=== PATIENT | male | born 1935 | race Caucasian/White ===

== ENCOUNTER 2017-05-19 19:33 | Inpatient (IN) | payer MEDICARE ==
[~2017-05-19] VITALS: Ht 177.8 cm; Wt 68.7 kg
--- NOTE | 2017-05-19 19:59 | PHYS DOC ---
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 Review of Systems Review of Systems Constitutional: Denies fever or chills Eyes: Denies change in visual acuity (blindness right eye), redness, or eye pain HENT: Denies nasal congestion or sore throat Respiratory: Denies cough or shortness of breath Cardiovascular: No chest pain, no palpitations GI: Denies abdominal pain, nausea, vomiting, bloody stools or diarrhea : Denies dysuria or hematuria Musculoskeletal: Denies back pain or joint pain Integument: Denies rash or skin lesions Neurologic: Denies headache, focal weakness or sensory changes Current Medications Current Medications Reviewed Physical Exam Physical Exam Constitutional: Well developed, well nourished, no acute distress, non-toxic appearance. Very pleasant and cooperative HENT: Normocephalic, atraumatic, bilateral external ears normal, oropharynx moist, no oral exudates, nose normal. Eyes: Right eye with scarring and blindness; conjunctiva normal, no discharge of left eye. Neck: Normal range of motion, no tenderness, supple, no stridor. Cardiovascular:Heart rate regular rhythm, no murmur Lungs & Thorax: Bilateral breath sounds clear to auscultation Abdomen: Bowel sounds normal, soft, no tenderness, no masses, no pulsatile masses. Skin: Warm, dry, no erythema, no rash. Back: No tenderness, no CVA tenderness. Extremities: No tenderness, no cyanosis, no clubbing, ROM intact, no edema. Neurologic: Alert and oriented X 2 (confused to time), normal motor function, normal sensory function, no focal deficits noted. Psychologic: Affect normal, judgement normal, mood normal. Current Patient Data Vital Signs Reviewed Lab Results reviewed EKG EKG EKG by my interpretation shows sinus rhythm prolonged NM axis rate is [address] changes interventricular conduction delay. No prior EKG to compare this to Radiology/Procedures Radiology/Procedures Chest x-ray by my interpretation shows enlarged cardiac silhouette. Chronic COPD changes with flattened diaphragms. Chronic scarring in both lung bases. No prior chest x-ray to compare this to Course & Med Decision Making Course & Med Decision Making Pertinent Labs and Imaging studies reviewed. (See chart for details) Dragon Disclaimer Dragon Disclaimer This chart was dictated in whole or in part using Voice Recognition software in a busy, high-work load, and often noisy Emergency Department environment. It may contain unintended and wholly unrecognized errors or omissions. Departure Departure: Impression: Primary Impression: Behavioral change Disposition: 65 XFER TO PSYCH HOSP/UNIT Condition: GOOD OBIE ALEXANDER MD May 19, 2017 19:59
[2017-05-19] MEDS ORDERED: FURO40TA4 PO (20:28)
[2017-05-19] MEDS ORDERED: CARV12.52 PO (20:28)
[2017-05-19] MEDS ORDERED: POLY255P PO (20:28)
[2017-05-19] MEDS ORDERED: DIVA125C3 PO (20:28)
[2017-05-19] MEDS ORDERED: POTA20TA4 PO (20:28)
[2017-05-19] MEDS ORDERED: AMIO200T2 PO (20:28)
[2017-05-19] MEDS ORDERED: CHOL10003 PO (20:28)
[2017-05-19] MEDS ORDERED: ATOR10TA60 PO (20:28)
[2017-05-19] MEDS ORDERED: LORA0.5T PO (20:28)
[2017-05-19] MEDS ORDERED: ACET325T9 PO (20:28)
[2017-05-19] MEDS ORDERED: MELA3TAB2 PO (20:28)
[2017-05-19] MEDS ORDERED: TAMS0.4C2 PO (20:28)
[2017-05-19] MEDS ORDERED: SENN8.6T99 PO (20:28)
[2017-05-19] MEDS ORDERED: ASPI-630 PO (20:28)
[2017-05-19] MEDS ORDERED: LISI40TA PO (20:28)
[2017-05-19 20:29] LABS: BASO % 1 % (0-3); EOS # 0.2 x10^3/uL (0.0-0.7); EOS % 3 % (0-3); HEMATOCRIT 34.1 % (39.0-53.0); HEMOGLOBIN 11.6 g/dL (13.0-17.5); LYMPH # 1.9 x10^3/uL (1.0-4.8); LYMPH % 30 % (24-48); MEAN CORPUSCULAR HEMOGLOBIN 36 pg (25-35); MEAN CORPUSCULAR HGB CONC 34 g/dL (31-37); MEAN CORPUSCULAR VOLUME 107 fL (79-100); MONO # 0.5 x10^3/uL (0.0-1.1); MONO % 9 % (0-9); NEUT # 3.6 x10^3uL (1.8-7.7); NEUT % 58 % (31-73); PLATELET COUNT 139 x10^3/uL (140-400); RED BLOOD COUNT 3.18 x10^6/uL (4.30-5.70); RED CELL DISTRIBUTION WIDTH 14.6 % (11.5-14.5); WHITE BLOOD COUNT 6.2 x10^3/uL (4.0-11.0)
[2017-05-19 20:38] LABS: ALBUMIN 3.1 g/dL (3.4-5.0); ALBUMIN/GLOBULIN RATIO 0.7 (1.0-1.7); CALCIUM 8.4 mg/dL (8.5-10.1); CREATININE 1.4 mg/dL (0.7-1.3); GFR 48.4; MAGNESIUM 2.2 mg/dL (1.8-2.4); TOTAL BILIRUBIN 0.5 mg/dL (0.2-1.0); TOTAL PROTEIN 7.3 g/dL (6.4-8.2)
[2017-05-19 20:48] LABS: BILIRUBIN,URINE NEG (NEG); CLARITY,URINE CLEAR; COLOR,URINE YELLOW; GLUCOSE,URINE NEG (NEG)
[2017-05-19 20:49] LABS: BACTERIA,URINE 0 /HPF (0-FEW); NITRITE,URINE NEG (NEG); SQUAMOUS EPITHELIAL CELL,UR FEW /LPF; UROBILINOGEN,URINE 2 mg/dL (0.2 mg/dL)
[2017-05-19 20:50] LABS: HYALINE CASTS, URINE FEW /HPF
[2017-05-19] MEDS ORDERED: MAGNESIUM HYDROXIDE 2,400 MG/30 ML ORAL.SUSP. PO PRN (21:45)
[2017-05-19] MEDS ORDERED: METHYL SALICYLATE/MENTHOL TOPICAL OINTMENT 29GM TUBE. TP PRN (21:45)
[2017-05-19] MEDS ORDERED: MAG HYDROX/AL HYDROX/SIMETH 30 ML ORAL.SUSP PO PRN (21:45)
[2017-05-19] MEDS ORDERED: ACETAMINOPHEN 325 MG TABLET PO PRN (22:00)
[2017-05-19 22:12] LABS: VAL ACID 26 mcg/mL (50-100)
[2017-05-19] MEDS ORDERED: POLYETHYLENE GLYCOL 3350 17 GM PACKET. PO PRN (22:15)
[2017-05-19 22:43] VITALS: BP 129/73
[2017-05-19] MEDS: DIVALPROEX 125 MG CAP.SPRINK PO SCH (23:29)
[2017-05-19] MEDS: MELATONIN 3 MG TABLET PO SCH (23:29)
[2017-05-19] MEDS: ATORVASTATIN CALCIUM 10 MG TABLET. PO SCH (23:29)
--- NOTE | 2017-05-20 01:53 | EKG ---
[address] [address] Test Date: 2017-05-19 Test Time: 20:18:49 Pat Name: LATOSHA VIEYRA Department: Room: [address] [place] [address] Gender: M Knowledge Management Advisor: : [id number] Requested By: OBIE ALEXANDER Order Number: [id number] Reading MD: Bassam Bautista Measurements Intervals [place] Rate: 60 P: [place]: QRS: 179 QRSD: 86 T: 7 QT: 524 QTc: 529 Interpretive Statements VENTRICULAR PACED RHYTHM Electronically Signed On 05-29-2017 14:45:36 CDT by Bassam Bautista
[2017-05-20 06:33] VITALS: BP 130/130
[2017-05-20] MEDS: AMIODARONE HCL 200 MG TABLET PO SCH (08:45)
[2017-05-20] MEDS: CARVEDILOL 12.5 MG TABLET PO SCH ×2 (08:45→17:00)
[2017-05-20] MEDS: ASPIRIN 81 MG TAB.CHEW PO SCH (08:45)
[2017-05-20] MEDS: CHOLECALCIFEROL (VITAMIN D3) 1,000 UNIT TABLET PO SCH (08:45)
[2017-05-20] MEDS: LISINOPRIL 20 MG TABLET PO SCH (08:46)
[2017-05-20] MEDS: FUROSEMIDE 40 MG TABLET PO SCH (08:46)
[2017-05-20] MEDS: DIVALPROEX 125 MG CAP.SPRINK PO SCH ×2 (08:46→19:56)
--- NOTE | 2017-05-20 08:47 | RAD ---
INDICATION: medical clearance COMPARISON: None. FINDINGS: Single view of chest obtained. Enlarged cardiac silhouette with poststernotomy changes and pacemaker. Coarsened lung markings throughout bilateral lungs. Mild linear opacities at left lung base. IMPRESSION: Coarsened lung markings bilaterally. Would correlate for possible causes such as emphysema. Other causes such as mild pulmonary vascular congestion are also possible. Mild opacity at left lung base could be secondary to overlap of structures but a small region of atelectasis also possible.
[2017-05-20] MEDS: TAMSULOSIN 0.4 MG CAP.ER.24H. PO SCH (08:48)
[2017-05-20] MEDS: POTASSIUM CHLORIDE 20 MEQ TABLET.ER. PO SCH (08:48)
[2017-05-20] MEDS: SENNOSIDES 8.6 MG TABLET PO SCH (08:48)
[2017-05-20 15:56] VITALS: BP 108/63
[2017-05-20 19:08] LABS: T3 TOTAL 52 ng/dL (71-180); THYROXINE 8.1 ug/dL (4.5-12.0)
[2017-05-20] MEDS: MELATONIN 3 MG TABLET PO SCH (19:56)
[2017-05-20] MEDS: ATORVASTATIN CALCIUM 10 MG TABLET. PO SCH (19:57)
[2017-05-20 21:15] LABS: THYROID STIM HORMONE (TSH) 1.97 uIU/mL (0.358-3.740)
--- NOTE | 2017-05-20 22:03 | PDOC ---
Exam Willard Demential Exam: Willard Note: Please also refer to the separate dictated note~for this date of service dictated separately.~Patient seen individually. Discussed the patient with Nursing staff reviewed the chart.~Reviewed interim history and current functioning. Reviewed vital signs,~Labs/ Radiology~and current medications noted below. Continue current treatment with the changes noted in the dictated addendum note Assessment: Vital Signs: Vital Signs Date Time Temp Pulse Resp B/P (MAP) Pulse Ox O2 Delivery O2 Flow Rate FiO2 05/20/17 17:00 69 108/63 05/20/17 15:56 97.5 21 97 05/19/17 20:05 Room Air I&O Intake and Output 05/20/17 07:00 Intake Total 200 ml Balance 200 ml Intake Oral 200 ml Current Medications: Meds: Current Medications Multi-Ingredient Ointment (Analgesic [place]) 1 damaso PRN QID PRN TP MUSCLE PAIN; Start 05/19/17 at 21:45 Al Hydroxide/Mg Hydroxide (Mylanta Plus Xs) 15 ml PRN AFTMEALHC PRN PO DYSPEPSIA; Start 05/19/17 at 21:45 Magnesium Hydroxide (Milk Of Magnesia) 2,400 mg PRN QHS PRN PO CONSTIPATION; Start 05/19/17 at 21:45 Divalproex Sodium (Depakote Sprinkles) 250 mg BID PO Last administered on 08:46; Start 05/19/17 at 22:15; Stop 05/20/17 at 18:55; Status DC Lorazepam (Ativan) 0.25 mg PRN Q6HRS PRN PO ANXIETY / AGITATION; Start at 22:00 Melatonin 3 mg QHS PO Last administered on 05/20/17 19:56; Start 05/19/17 at 22:15 Acetaminophen (Tylenol) 650 mg PRN Q6HRS PRN PO PAIN / TEMP; Start 05/19/17 at 22:00 Amiodarone HCl (Cordarone) 200 mg DAILY PO Last administered on 05/20/17 08:45 ; Start 05/20/17 at 09:00 Aspirin (Children'S Aspirin) 81 mg DAILY PO Last administered on 05/20/17 08: 45; Start 05/20/17 at 09:00 Atorvastatin Calcium (Lipitor) 10 mg QHS PO Last administered on 05/20/17 19: 57; Start 05/19/17 at 22:15 Carvedilol (Coreg) 12.5 mg BIDWMEALS PO Last administered on 05/20/17 17:00; Start 05/20/17 at 08:00 Vitamin D (Vitamin D3) 1,000 unit DAILY PO Last administered on 05/20/17 08:45 ; Start 05/20/17 at 09:00 Furosemide (Lasix) 40 mg DAILY PO Last administered on 05/20/17 08:46; Start 05/20/17 at 09:00 Polyethylene Glycol (miraLAX) 17 gm PRN DAILY PRN PO CONSTIPATION; Start at 22:15 Potassium Chloride (Klor-Con) 40 meq DAILY PO Last administered on 05/20/17 08 :48; Start 05/20/17 at 09:00 Sennosides (Senna) 8.6 mg DAILY PO Last administered on 05/20/17 08:48; Start 05/20/17 at 09:00 Tamsulosin HCl (Flomax) 0.4 mg DAILY PO Last administered on 05/20/17 08:48; Start 05/20/17 at 09:00 Lisinopril (Prinivil) 40 mg DAILY PO Last administered on 05/20/17 08:46; Start 05/20/17 at 09:00 Divalproex Sodium (Depakote Sprinkles) 375 mg BID PO Last administered on 19:56; Start 05/20/17 at 21:00 Sertraline HCl (Zoloft) 25 mg DAILY PO ; Start 05/21/17 at 09:00 Active Scripts Active Reported Polyethylene Glycol 3350 255 Gm Powder 17 Gm PO PRN DAILY PRN Tylenol (Acetaminophen) 325 Mg Tablet 650 Mg PO PRN Q6HRS PRN Lorazepam 0.5 Mg Tablet 0.25 Mg PO PRN Q6HRS PRN Furosemide 40 Mg Tablet 40 Mg PO DAILY Klor-Con M20 (Potassium Chloride) 20 Meq Tab.er.prt 40 Meq PO DAILY Lisinopril 40 Mg Tablet 40 Mg PO DAILY Vitamin D3 (Cholecalciferol (Vitamin D3)) 1,000 Unit Tablet 1,000 Unit PO DAILY Aspirin 81 Mg Tab.chew 81 Mg PO DAILY Amiodarone Hcl 200 Mg Tablet 200 Mg PO DAILY Atorvastatin Calcium 10 Mg Tablet 10 Mg PO QHS Tamsulosin Hcl 0.4 Mg Cap.er.24h 0.4 Mg PO DAILY Melatonin 3 Mg Tablet 3 Mg PO HS Senokot (Sennosides) 8.6 Mg Tablet 8.6 Mg PO DAILY Carvedilol 12.5 Mg Tablet 12.5 Mg PO BIDWMEALS Divalproex Sodium 125 Mg Cap.sprink 250 Mg PO BID Diagnosis: Problems: (1) Behavioral change JING ROSS MD May 20, 2017 22:03
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
[2017-05-21 04:09] LABS: HEMOGLOBIN A1C 4.3 % (4.8-5.6)
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
[2017-05-21 06:00] VITALS: BP 134/77
[2017-05-21] MEDS: CARVEDILOL 12.5 MG TABLET PO SCH ×2 (08:13→17:00)
[2017-05-21] MEDS: CHOLECALCIFEROL (VITAMIN D3) 1,000 UNIT TABLET PO SCH (08:13)
[2017-05-21] MEDS: FUROSEMIDE 40 MG TABLET PO SCH (08:13)
[2017-05-21] MEDS: TAMSULOSIN 0.4 MG CAP.ER.24H. PO SCH (08:13)
[2017-05-21] MEDS: LISINOPRIL 20 MG TABLET PO SCH (08:14)
[2017-05-21] MEDS: SENNOSIDES 8.6 MG TABLET PO SCH (08:14)
[2017-05-21] MEDS: DIVALPROEX 125 MG CAP.SPRINK PO SCH ×2 (08:14→19:49)
[2017-05-21] MEDS: POTASSIUM CHLORIDE 20 MEQ TABLET.ER. PO SCH (08:14)
[2017-05-21] MEDS: ASPIRIN 81 MG TAB.CHEW PO SCH (08:15)
[2017-05-21] MEDS: AMIODARONE HCL 200 MG TABLET PO SCH (08:15)
[2017-05-21] MEDS: SERTRALINE 25 MG TABLET. PO SCH (08:27)
--- NOTE | 2017-05-21 11:52 | PDOC ---
Exam Willard Demential Exam: Willard Note: Please also refer to the separate dictated note~for this date of service dictated separately.~Patient seen individually. Discussed the patient with Nursing staff reviewed the chart.~Reviewed interim history and current functioning. Reviewed vital signs,~Labs/ Radiology~and current medications noted below. Continue current treatment with the changes noted in the dictated addendum note Assessment: Vital Signs: Vital Signs Date Time Temp Pulse Resp B/P (MAP) Pulse Ox O2 Delivery O2 Flow Rate FiO2 05/21/17 08:15 59 134/77 05/21/17 06:00 97.8 20 94 05/19/17 20:05 Room Air I&O Intake and Output 05/21/17 07:00 Intake Total 1020 ml Balance 1020 ml Intake Oral 1020 ml Current Medications: Meds: Current Medications Multi-Ingredient Ointment (Analgesic [place]) 1 damaso PRN QID PRN TP MUSCLE PAIN; Start 05/19/17 at 21:45 Al Hydroxide/Mg Hydroxide (Mylanta Plus Xs) 15 ml PRN AFTMEALHC PRN PO DYSPEPSIA; Start 05/19/17 at 21:45 Magnesium Hydroxide (Milk Of Magnesia) 2,400 mg PRN QHS PRN PO CONSTIPATION; Start 05/19/17 at 21:45 Divalproex Sodium (Depakote Sprinkles) 250 mg BID PO Last administered on 08:46; Start 05/19/17 at 22:15; Stop 05/20/17 at 18:55; Status DC Lorazepam (Ativan) 0.25 mg PRN Q6HRS PRN PO ANXIETY / AGITATION; Start at 22:00 Melatonin 3 mg QHS PO Last administered on 05/20/17 19:56; Start 05/19/17 at 22:15 Acetaminophen (Tylenol) 650 mg PRN Q6HRS PRN PO PAIN / TEMP; Start 05/19/17 at 22:00 Amiodarone HCl (Cordarone) 200 mg DAILY PO Last administered on 05/21/17 08:15 ; Start 05/20/17 at 09:00 Aspirin (Children'S Aspirin) 81 mg DAILY PO Last administered on 05/21/17 08: 15; Start 05/20/17 at 09:00 Atorvastatin Calcium (Lipitor) 10 mg QHS PO Last administered on 05/20/17 19: 57; Start 05/19/17 at 22:15 Carvedilol (Coreg) 12.5 mg BIDWMEALS PO Last administered on 05/21/17 08:13; Start 05/20/17 at 08:00 Vitamin D (Vitamin D3) 1,000 unit DAILY PO Last administered on 05/21/17 08:13 ; Start 05/20/17 at 09:00 Furosemide (Lasix) 40 mg DAILY PO Last administered on 05/21/17 08:13; Start 05/20/17 at 09:00 Polyethylene Glycol (miraLAX) 17 gm PRN DAILY PRN PO CONSTIPATION; Start at 22:15 Potassium Chloride (Klor-Con) 40 meq DAILY PO Last administered on 05/21/17 08 :14; Start 05/20/17 at 09:00 Sennosides (Senna) 8.6 mg DAILY PO Last administered on 05/21/17 08:14; Start 05/20/17 at 09:00 Tamsulosin HCl (Flomax) 0.4 mg DAILY PO Last administered on 05/21/17 08:13; Start 05/20/17 at 09:00 Lisinopril (Prinivil) 40 mg DAILY PO Last administered on 05/21/17 08:14; Start 05/20/17 at 09:00 Divalproex Sodium (Depakote Sprinkles) 375 mg BID PO Last administered on 08:14; Start 05/20/17 at 21:00 Sertraline HCl (Zoloft) 25 mg DAILY PO Last administered on 05/21/17 08:27; Start 05/21/17 at 09:00 Active Scripts Active Reported Polyethylene Glycol 3350 255 Gm Powder 17 Gm PO PRN DAILY PRN Tylenol (Acetaminophen) 325 Mg Tablet 650 Mg PO PRN Q6HRS PRN Lorazepam 0.5 Mg Tablet 0.25 Mg PO PRN Q6HRS PRN Furosemide 40 Mg Tablet 40 Mg PO DAILY Klor-Con M20 (Potassium Chloride) 20 Meq Tab.er.prt 40 Meq PO DAILY Lisinopril 40 Mg Tablet 40 Mg PO DAILY Vitamin D3 (Cholecalciferol (Vitamin D3)) 1,000 Unit Tablet 1,000 Unit PO DAILY Aspirin 81 Mg Tab.chew 81 Mg PO DAILY Amiodarone Hcl 200 Mg Tablet 200 Mg PO DAILY Atorvastatin Calcium 10 Mg Tablet 10 Mg PO QHS Tamsulosin Hcl 0.4 Mg Cap.er.24h 0.4 Mg PO DAILY Melatonin 3 Mg Tablet 3 Mg PO HS Senokot (Sennosides) 8.6 Mg Tablet 8.6 Mg PO DAILY Carvedilol 12.5 Mg Tablet 12.5 Mg PO BIDWMEALS Divalproex Sodium 125 Mg Cap.sprink 250 Mg PO BID Diagnosis: Problems: (1) Behavioral change JING ROSS MD May 21, 2017 11:52
[2017-05-21 15:36] VITALS: BP_SYST 130; BP_SYST 96; BP_DIAS 57; BP_DIAS 90
[2017-05-21] MEDS: ATORVASTATIN CALCIUM 10 MG TABLET. PO SCH (19:49)
[2017-05-21] MEDS: MELATONIN 3 MG TABLET PO SCH (19:50)
[2017-05-22] MEDS: LORazepam 0.5 MG TABLET PO PRN (01:02)
[2017-05-22 06:07] VITALS: BP 116/53
[2017-05-22] MEDS: CHOLECALCIFEROL (VITAMIN D3) 1,000 UNIT TABLET PO SCH (08:04)
[2017-05-22] MEDS: LISINOPRIL 20 MG TABLET PO SCH (08:05)
[2017-05-22] MEDS: POTASSIUM CHLORIDE 20 MEQ TABLET.ER. PO SCH (08:05)
[2017-05-22] MEDS: CARVEDILOL 12.5 MG TABLET PO SCH ×2 (08:05→17:06)
[2017-05-22] MEDS: SERTRALINE 25 MG TABLET. PO SCH (08:05)
[2017-05-22] MEDS: TAMSULOSIN 0.4 MG CAP.ER.24H. PO SCH (08:05)
[2017-05-22] MEDS: DIVALPROEX 125 MG CAP.SPRINK PO SCH ×2 (08:06→21:12)
[2017-05-22] MEDS: FUROSEMIDE 40 MG TABLET PO SCH (08:06)
[2017-05-22] MEDS: AMIODARONE HCL 200 MG TABLET PO SCH (08:06)
[2017-05-22] MEDS: SENNOSIDES 8.6 MG TABLET PO SCH (08:06)
[2017-05-22] MEDS: ASPIRIN 81 MG TAB.CHEW PO SCH (08:06)
[2017-05-22 16:21] VITALS: BP 126/67
--- NOTE | 2017-05-22 20:01 | PDOC ---
Exam Willard Demential Exam: Willard Note: Please also refer to the separate dictated note~for this date of service dictated separately.~Patient seen individually. Discussed the patient with Nursing staff reviewed the chart.~Reviewed interim history and current functioning. Reviewed vital signs,~Labs/ Radiology~and current medications noted below. Continue current treatment with the changes noted in the dictated addendum note Assessment: Vital Signs: Vital Signs Date Time Temp Pulse Resp B/P (MAP) Pulse Ox O2 Delivery O2 Flow Rate FiO2 05/22/17 17:06 60 126/67 05/22/17 16:21 97.6 16 97 Room Air I&O Intake and Output 05/22/17 07:00 Intake Total 720 ml Balance 720 ml Intake Oral 720 ml # Bowel Movements 1 Current Medications: Meds: Current Medications Multi-Ingredient Ointment (Analgesic [place]) 1 damaso PRN QID PRN TP MUSCLE PAIN; Start 05/19/17 at 21:45 Al Hydroxide/Mg Hydroxide (Mylanta Plus Xs) 15 ml PRN AFTMEALHC PRN PO DYSPEPSIA; Start 05/19/17 at 21:45 Magnesium Hydroxide (Milk Of Magnesia) 2,400 mg PRN QHS PRN PO CONSTIPATION; Start 05/19/17 at 21:45 Divalproex Sodium (Depakote Sprinkles) 250 mg BID PO Last administered on 08:46; Start 05/19/17 at 22:15; Stop 05/20/17 at 18:55; Status DC Lorazepam (Ativan) 0.25 mg PRN Q6HRS PRN PO ANXIETY / AGITATION Last administered on 05/22/17 01:02; Start 05/19/17 at 22:00 Melatonin 3 mg QHS PO Last administered on 05/21/17 19:50; Start 05/19/17 at 22:15 Acetaminophen (Tylenol) 650 mg PRN Q6HRS PRN PO PAIN / TEMP; Start 05/19/17 at 22:00 Amiodarone HCl (Cordarone) 200 mg DAILY PO Last administered on 05/22/17 08:06 ; Start 05/20/17 at 09:00 Aspirin (Children'S Aspirin) 81 mg DAILY PO Last administered on 05/22/17 08: 06; Start 05/20/17 at 09:00 Atorvastatin Calcium (Lipitor) 10 mg QHS PO Last administered on 05/21/17 19: 49; Start 05/19/17 at 22:15 Carvedilol (Coreg) 12.5 mg BIDWMEALS PO Last administered on 05/22/17 17:06; Start 05/20/17 at 08:00 Vitamin D (Vitamin D3) 1,000 unit DAILY PO Last administered on 05/22/17 08:04 ; Start 05/20/17 at 09:00 Furosemide (Lasix) 40 mg DAILY PO Last administered on 05/22/17 08:06; Start 05/20/17 at 09:00 Polyethylene Glycol (miraLAX) 17 gm PRN DAILY PRN PO CONSTIPATION; Start at 22:15 Potassium Chloride (Klor-Con) 40 meq DAILY PO Last administered on 05/22/17 08 :05; Start 05/20/17 at 09:00 Sennosides (Senna) 8.6 mg DAILY PO Last administered on 05/22/17 08:06; Start 05/20/17 at 09:00 Tamsulosin HCl (Flomax) 0.4 mg DAILY PO Last administered on 05/22/17 08:05; Start 05/20/17 at 09:00 Lisinopril (Prinivil) 40 mg DAILY PO Last administered on 05/22/17 08:05; Start 05/20/17 at 09:00 Divalproex Sodium (Depakote Sprinkles) 375 mg BID PO Last administered on 08:06; Start 05/20/17 at 21:00 Sertraline HCl (Zoloft) 25 mg DAILY PO Last administered on 05/22/17 08:05; Start 05/21/17 at 09:00; Stop 05/22/17 at 11:02; Status DC Sertraline HCl (Zoloft) 50 mg DAILY PO ; Start 05/23/17 at 09:00 Trazodone HCl (Desyrel) 50 mg PRN QHS PRN PO INSOMNIA, MAY REPEAT X1; Start at 19:45 Active Scripts Active Reported Polyethylene Glycol 3350 255 Gm Powder 17 Gm PO PRN DAILY PRN Tylenol (Acetaminophen) 325 Mg Tablet 650 Mg PO PRN Q6HRS PRN Lorazepam 0.5 Mg Tablet 0.25 Mg PO PRN Q6HRS PRN Furosemide 40 Mg Tablet 40 Mg PO DAILY Klor-Con M20 (Potassium Chloride) 20 Meq Tab.er.prt 40 Meq PO DAILY Lisinopril 40 Mg Tablet 40 Mg PO DAILY Vitamin D3 (Cholecalciferol (Vitamin D3)) 1,000 Unit Tablet 1,000 Unit PO DAILY Aspirin 81 Mg Tab.chew 81 Mg PO DAILY Amiodarone Hcl 200 Mg Tablet 200 Mg PO DAILY Atorvastatin Calcium 10 Mg Tablet 10 Mg PO QHS Tamsulosin Hcl 0.4 Mg Cap.er.24h 0.4 Mg PO DAILY Melatonin 3 Mg Tablet 3 Mg PO HS Senokot (Sennosides) 8.6 Mg Tablet 8.6 Mg PO DAILY Carvedilol 12.5 Mg Tablet 12.5 Mg PO BIDWMEALS Divalproex Sodium 125 Mg Cap.sprink 250 Mg PO BID Diagnosis: Problems: (1) Behavioral change JING ROSS MD May 22, 2017 20:01
[2017-05-22] MEDS: traZODone 50 MG TABLET. PO PRN (21:12)
[2017-05-22] MEDS: MELATONIN 3 MG TABLET PO SCH (21:12)
[2017-05-22] MEDS: ATORVASTATIN CALCIUM 10 MG TABLET. PO SCH (21:12)
--- NOTE | 2017-05-22 23:02 | PN ---
DATE: 05/21/2017 PSYCHIATRIC PROGRESS NOTE This is a late entry of 05/19/2017 covers elements not covered in my initial note. SUBJECTIVE: The patient was seen individually evening of 05/21/2017. He has been confused, somewhat sexually inappropriate, hugging staff, going around talking to female staff members about having sex. He slept 7-1/2 hours. REVIEW OF SYSTEMS: Ambulation impaired. Poor vision. No CV, , pulmonary, eye, ENT system symptoms on review. Reliability poor. MENTAL STATUS EXAM: Oriented to himself. Insight, judgment, recent and remote memory, attention, concentration, fund of knowledge poor, consistent with his diagnosis mentioned in my initial note. IMPRESSION: Major neurocognitive disorder, multifactorial, Alzheimer, vascular with depression, delusion, behavioral disturbance; anxiety disorder, unspecified; impulse control disorder, unspecified. Rest diagnoses unchanged. PLAN: The patient's Depakote has been adjusted to 375 mg b.i.d. Labs level to be checked 05/23/2017 and if the level is therapeutic and sexually inappropriate, impulsive persist, we may add Provera. Continue melatonin, Zoloft, and Ativan, and increase Zoloft from 25 mg a day to 50 mg a day. MAN Lucas ROSS MD DR: JERI/pedro JOB#: [id number] / [id number]
[2017-05-23 06:37] VITALS: BP 128/79
[2017-05-23 08:04] LABS: BASO % 1 % (0-3); EOS # 0.2 x10^3/uL (0.0-0.7); EOS % 3 % (0-3); HEMATOCRIT 34.2 % (39.0-53.0); HEMOGLOBIN 11.8 g/dL (13.0-17.5); LYMPH # 1.2 x10^3/uL (1.0-4.8); LYMPH % 21 % (24-48); MEAN CORPUSCULAR HEMOGLOBIN 37 pg (25-35); MEAN CORPUSCULAR HGB CONC 34 g/dL (31-37); MEAN CORPUSCULAR VOLUME 108 fL (79-100); MONO # 0.5 x10^3/uL (0.0-1.1); MONO % 9 % (0-9); NEUT # 3.7 x10^3uL (1.8-7.7); NEUT % 66 % (31-73); PLATELET COUNT 125 x10^3/uL (140-400); RED BLOOD COUNT 3.15 x10^6/uL (4.30-5.70); RED CELL DISTRIBUTION WIDTH 14.4 % (11.5-14.5); WHITE BLOOD COUNT 5.6 x10^3/uL (4.0-11.0)
[2017-05-23 08:18] LABS: ALBUMIN 3.1 g/dL (3.4-5.0); ALBUMIN/GLOBULIN RATIO 0.8 (1.0-1.7); ALK PHOS 70 U/L (46-116); ALT (SGPT) 14 U/L (16-63); ANION GAP 8 (6-14); AST (SGOT) 15 U/L (15-37); BLOOD UREA NITROGEN 27 mg/dL (8-26); BUN/CREATININE RATIO 23 (6-20); CALCIUM 8.7 mg/dL (8.5-10.1); CARBON DIOXIDE 26 mmol/L (21-32); CHLORIDE 110 mmol/L (98-107); CREATININE 1.2 mg/dL (0.7-1.3); GFR 57.8; GLUCOSE 80 mg/dL (70-99); POTASSIUM 3.8 mmol/L (3.5-5.1); SODIUM 144 mmol/L (136-145); TOTAL BILIRUBIN 0.6 mg/dL (0.2-1.0); TOTAL PROTEIN 7.2 g/dL (6.4-8.2)
[2017-05-23 08:25] LABS: VAL ACID 40 mcg/mL (50-100)
[2017-05-23] MEDS: FUROSEMIDE 40 MG TABLET PO SCH (08:47)
[2017-05-23] MEDS: CHOLECALCIFEROL (VITAMIN D3) 1,000 UNIT TABLET PO SCH (08:48)
[2017-05-23] MEDS: SENNOSIDES 8.6 MG TABLET PO SCH (08:48)
[2017-05-23] MEDS: TAMSULOSIN 0.4 MG CAP.ER.24H. PO SCH (08:48)
[2017-05-23] MEDS: DIVALPROEX 125 MG CAP.SPRINK PO SCH ×2 (08:48→20:17)
[2017-05-23] MEDS: ASPIRIN 81 MG TAB.CHEW PO SCH (08:48)
[2017-05-23] MEDS: LISINOPRIL 20 MG TABLET PO SCH (08:48)
[2017-05-23] MEDS: AMIODARONE HCL 200 MG TABLET PO SCH (08:48)
[2017-05-23] MEDS: CARVEDILOL 12.5 MG TABLET PO SCH ×2 (08:49→17:24)
[2017-05-23] MEDS: POTASSIUM CHLORIDE 20 MEQ TABLET.ER. PO SCH (08:49)
[2017-05-23] MEDS: SERTRALINE 50 MG TABLET. PO SCH (08:57)
[2017-05-23] MEDS: PRENATAL MULTIVITAMIN TABLET. PO SCH (12:40)
[2017-05-23] MEDS: CYANOCOBALAMIN (VITAMIN B-12) 1,000 MCG TABLET. PO SCH (12:40)
[2017-05-23 16:38] VITALS: BP 87/56
--- NOTE | 2017-05-23 19:53 | PDOC ---
Exam Willard Demential Exam: Willard Note: Please also refer to the separate dictated note~for this date of service dictated separately.~Patient seen individually. Discussed the patient with Nursing staff reviewed the chart.~Reviewed interim history and current functioning. Reviewed vital signs,~Labs/ Radiology~and current medications noted below. Continue current treatment with the changes noted in the dictated addendum note Assessment: Vital Signs: Vital Signs Date Time Temp Pulse Resp B/P (MAP) Pulse Ox O2 Delivery O2 Flow Rate FiO2 05/23/17 17:24 87 118/76 05/23/17 16:38 97.1 18 97 Room Air I&O Intake and Output 05/23/17 07:00 Intake Total 630 ml Balance 630 ml Intake Oral 630 ml Labs: Laboratory Tests Test 05/23/17 07:49 White Blood Count 5.6 x10^3/uL (4.0-11.0) Red Blood Count 3.15 x10^6/uL (4.30-5.70) L Hemoglobin 11.8 g/dL (13.0-17.5) L Hematocrit 34.2 % (39.0-53.0) L Mean Corpuscular Volume 108 fL (79-100) H Mean Corpuscular Hemoglobin 37 pg (25-35) H Mean Corpuscular Hemoglobin Concent 34 g/dL (31-37) Red Cell Distribution Width 14.4 % (11.5-14.5) Platelet Count 125 x10^3/uL (140-400) L Neutrophils (%) (Auto) 66 % (31-73) Lymphocytes (%) (Auto) 21 % (24-48) L Monocytes (%) (Auto) 9 % (0-9) Eosinophils (%) (Auto) 3 % (0-3) Basophils (%) (Auto) 1 % (0-3) Neutrophils # (Auto) 3.7 x10^3uL (1.8-7.7) Lymphocytes # (Auto) 1.2 x10^3/uL (1.0-4.8) Monocytes # (Auto) 0.5 x10^3/uL (0.0-1.1) Eosinophils # (Auto) 0.2 x10^3/uL (0.0-0.7) Basophils # (Auto) 0.0 x10^3/uL (0.0-0.2) Sodium Level 144 mmol/L (136-145) Potassium Level 3.8 mmol/L (3.5-5.1) Chloride Level 110 mmol/L (98-107) H Carbon Dioxide Level 26 mmol/L (21-32) Anion Gap 8 (6-14) Blood Urea Nitrogen 27 mg/dL (8-26) H Creatinine 1.2 mg/dL (0.7-1.3) Estimated GFR (Cockcroft-Gault) 57.8 BUN/Creatinine Ratio 23 (6-20) H Glucose Level 80 mg/dL (70-99) Calcium Level 8.7 mg/dL (8.5-10.1) Total Bilirubin 0.6 mg/dL (0.2-1.0) Aspartate Amino Transferase (AST) 15 U/L (15-37) Alanine Aminotransferase (ALT) 14 U/L (16-63) L Alkaline Phosphatase 70 U/L (46-116) Total Protein 7.2 g/dL (6.4-8.2) Albumin 3.1 g/dL (3.4-5.0) L Albumin/Globulin Ratio 0.8 (1.0-1.7) L Valproic Acid Level 40 mcg/mL (50-100) L Valproic Acid Last Dose Date 05/22/2017 Valproic Acid Last Dose Time 2100 Current Medications: Meds: Current Medications Multi-Ingredient Ointment (Analgesic [place]) 1 damaso PRN QID PRN TP MUSCLE PAIN; Start 05/19/17 at 21:45 Al Hydroxide/Mg Hydroxide (Mylanta Plus Xs) 15 ml PRN AFTMEALHC PRN PO DYSPEPSIA; Start 05/19/17 at 21:45 Magnesium Hydroxide (Milk Of Magnesia) 2,400 mg PRN QHS PRN PO CONSTIPATION; Start 05/19/17 at 21:45 Divalproex Sodium (Depakote Sprinkles) 250 mg BID PO Last administered on 08:46; Start 05/19/17 at 22:15; Stop 05/20/17 at 18:55; Status DC Lorazepam (Ativan) 0.25 mg PRN Q6HRS PRN PO ANXIETY / AGITATION Last administered on 05/22/17 01:02; Start 05/19/17 at 22:00 Melatonin 3 mg QHS PO Last administered on 05/22/17 21:12; Start 05/19/17 at 22:15 Acetaminophen (Tylenol) 650 mg PRN Q6HRS PRN PO PAIN / TEMP; Start 05/19/17 at 22:00 Amiodarone HCl (Cordarone) 200 mg DAILY PO Last administered on 05/23/17 08:48 ; Start 05/20/17 at 09:00 Aspirin (Children'S Aspirin) 81 mg DAILY PO Last administered on 05/23/17 08: 48; Start 05/20/17 at 09:00 Atorvastatin Calcium (Lipitor) 10 mg QHS PO Last administered on 05/22/17 21: 12; Start 05/19/17 at 22:15 Carvedilol (Coreg) 12.5 mg BIDWMEALS PO Last administered on 05/23/17 17:24; Start 05/20/17 at 08:00 Vitamin D (Vitamin D3) 1,000 unit DAILY PO Last administered on 05/23/17 08:48 ; Start 05/20/17 at 09:00 Furosemide (Lasix) 40 mg DAILY PO Last administered on 05/23/17 08:47; Start 05/20/17 at 09:00 Polyethylene Glycol (miraLAX) 17 gm PRN DAILY PRN PO CONSTIPATION; Start at 22:15 Potassium Chloride (Klor-Con) 40 meq DAILY PO Last administered on 05/23/17 08 :49; Start 05/20/17 at 09:00 Sennosides (Senna) 8.6 mg DAILY PO Last administered on 05/23/17 08:48; Start 05/20/17 at 09:00 Tamsulosin HCl (Flomax) 0.4 mg DAILY PO Last administered on 05/23/17 08:48; Start 05/20/17 at 09:00 Lisinopril (Prinivil) 40 mg DAILY PO Last administered on 05/23/17 08:48; Start 05/20/17 at 09:00 Divalproex Sodium (Depakote Sprinkles) 375 mg BID PO Last administered on 08:48; Start 05/20/17 at 21:00 Sertraline HCl (Zoloft) 25 mg DAILY PO Last administered on 05/22/17 08:05; Start 05/21/17 at 09:00; Stop 05/22/17 at 11:02; Status DC Sertraline HCl (Zoloft) 50 mg DAILY PO Last administered on 05/23/17 08:57; Start 05/23/17 at 09:00 Trazodone HCl (Desyrel) 50 mg PRN QHS PRN PO INSOMNIA, MAY REPEAT X1 Last administered on 05/22/17 21:12; Start 05/22/17 at 19:45 Cyanocobalamin (Vitamin B-12) 1,000 mcg DAILY PO Last administered on 12:40; Start 05/23/17 at 12:30 Prenat Multivit/ [place]/Iron/Folic Ac (Multivitamin ) 1 tab DAILY PO Last administered on 05/23/17 12:40; Start 05/23/17 at 12:30 Active Scripts Active Reported Polyethylene Glycol 3350 255 Gm Powder 17 Gm PO PRN DAILY PRN Tylenol (Acetaminophen) 325 Mg Tablet 650 Mg PO PRN Q6HRS PRN Lorazepam 0.5 Mg Tablet 0.25 Mg PO PRN Q6HRS PRN Furosemide 40 Mg Tablet 40 Mg PO DAILY Klor-Con M20 (Potassium Chloride) 20 Meq Tab.er.prt 40 Meq PO DAILY Lisinopril 40 Mg Tablet 40 Mg PO DAILY Vitamin D3 (Cholecalciferol (Vitamin D3)) 1,000 Unit Tablet 1,000 Unit PO DAILY Aspirin 81 Mg Tab.chew 81 Mg PO DAILY Amiodarone Hcl 200 Mg Tablet 200 Mg PO DAILY Atorvastatin Calcium 10 Mg Tablet 10 Mg PO QHS Tamsulosin Hcl 0.4 Mg Cap.er.24h 0.4 Mg PO DAILY Melatonin 3 Mg Tablet 3 Mg PO HS Senokot (Sennosides) 8.6 Mg Tablet 8.6 Mg PO DAILY Carvedilol 12.5 Mg Tablet 12.5 Mg PO BIDWMEALS Divalproex Sodium 125 Mg Cap.sprink 250 Mg PO BID Diagnosis: Problems: (1) Behavioral change JING ROSS MD May 23, 2017 19:53
[2017-05-23] MEDS: traZODone 50 MG TABLET. PO PRN (20:17)
[2017-05-23] MEDS: MELATONIN 3 MG TABLET PO SCH (20:17)
[2017-05-23] MEDS: ATORVASTATIN CALCIUM 10 MG TABLET. PO SCH (20:17)
--- NOTE | 2017-05-23 23:55 | PN ---
DATE: 05/22/2017 This late entry 05/22/2017, covers elements not covered in my initial note. This is a late entry 05/22/2017. I met with the patient in the evening of 05/22/2017, per nursing report the patient remains confused and was cooperative at night, difficulty staying asleep. No CV, , pulmonary, eye, ENT system symptoms on review. Vision is poor. MENTAL STATUS EXAM: Oriented to himself. Insight, judgment, recent and remote memory, attention, concentration, fund of knowledge poor, consistent with his diagnosis mentioned in my initial note. PLAN: Continue current psychotropics, Ativan, together with melatonin, Zoloft and the Depakote. Follow labs level, adjust as clinically indicated. MAN Lucas ROSS MD DR: JERI/pedro JOB#: [id number] / [id number]
[2017-05-24 06:59] VITALS: BP 122/63
[2017-05-24] MEDS: CYANOCOBALAMIN (VITAMIN B-12) 1,000 MCG TABLET. PO SCH (08:07)
[2017-05-24] MEDS: TAMSULOSIN 0.4 MG CAP.ER.24H. PO SCH (08:07)
[2017-05-24] MEDS: CHOLECALCIFEROL (VITAMIN D3) 1,000 UNIT TABLET PO SCH (08:07)
[2017-05-24] MEDS: PRENATAL MULTIVITAMIN TABLET. PO SCH (08:07)
[2017-05-24] MEDS: POTASSIUM CHLORIDE 20 MEQ TABLET.ER. PO SCH (08:07)
[2017-05-24] MEDS: SERTRALINE 50 MG TABLET. PO SCH (08:07)
[2017-05-24] MEDS: ASPIRIN 81 MG TAB.CHEW PO SCH (08:07)
[2017-05-24] MEDS: AMIODARONE HCL 200 MG TABLET PO SCH (08:08)
[2017-05-24] MEDS: LISINOPRIL 20 MG TABLET PO SCH (08:08)
[2017-05-24] MEDS: FUROSEMIDE 40 MG TABLET PO SCH (08:08)
[2017-05-24] MEDS: SENNOSIDES 8.6 MG TABLET PO SCH (08:08)
[2017-05-24] MEDS: DIVALPROEX 125 MG CAP.SPRINK PO SCH ×2 (08:09→20:06)
[2017-05-24] MEDS: CARVEDILOL 12.5 MG TABLET PO SCH ×2 (08:09→17:11)
[2017-05-24 16:05] VITALS: BP 107/65
--- NOTE | 2017-05-24 19:57 | PDOC ---
Exam Willard Demential Exam: Willard Note: Please also refer to the separate dictated note~for this date of service dictated separately.~Patient seen individually. Discussed the patient with Nursing staff reviewed the chart.~Reviewed interim history and current functioning. Reviewed vital signs,~Labs/ Radiology~and current medications noted below. Continue current treatment with the changes noted in the dictated addendum note Assessment: Vital Signs: Vital Signs Date Time Temp Pulse Resp B/P (MAP) Pulse Ox O2 Delivery O2 Flow Rate FiO2 05/24/17 17:11 60 107/65 05/24/17 16:05 97.9 20 94 05/23/17 16:38 Room Air I&O Intake and Output 05/24/17 07:00 Intake Total 700 ml Balance 700 ml Intake Oral 700 ml Current Medications: Meds: Current Medications Multi-Ingredient Ointment (Analgesic [place]) 1 damaso PRN QID PRN TP MUSCLE PAIN; Start 05/19/17 at 21:45 Al Hydroxide/Mg Hydroxide (Mylanta Plus Xs) 15 ml PRN AFTMEALHC PRN PO DYSPEPSIA; Start 05/19/17 at 21:45 Magnesium Hydroxide (Milk Of Magnesia) 2,400 mg PRN QHS PRN PO CONSTIPATION; Start 05/19/17 at 21:45 Divalproex Sodium (Depakote Sprinkles) 250 mg BID PO Last administered on 08:46; Start 05/19/17 at 22:15; Stop 05/20/17 at 18:55; Status DC Lorazepam (Ativan) 0.25 mg PRN Q6HRS PRN PO ANXIETY / AGITATION Last administered on 05/22/17 01:02; Start 05/19/17 at 22:00 Melatonin 3 mg QHS PO Last administered on 05/23/17 20:17; Start 05/19/17 at 22:15 Acetaminophen (Tylenol) 650 mg PRN Q6HRS PRN PO PAIN / TEMP; Start 05/19/17 at 22:00 Amiodarone HCl (Cordarone) 200 mg DAILY PO Last administered on 05/24/17 08:08 ; Start 05/20/17 at 09:00 Aspirin (Children'S Aspirin) 81 mg DAILY PO Last administered on 05/24/17 08: 07; Start 05/20/17 at 09:00 Atorvastatin Calcium (Lipitor) 10 mg QHS PO Last administered on 05/23/17 20: 17; Start 05/19/17 at 22:15 Carvedilol (Coreg) 12.5 mg BIDWMEALS PO Last administered on 05/24/17 17:11; Start 05/20/17 at 08:00 Vitamin D (Vitamin D3) 1,000 unit DAILY PO Last administered on 05/24/17 08:07 ; Start 05/20/17 at 09:00 Furosemide (Lasix) 40 mg DAILY PO Last administered on 05/24/17 08:08; Start 05/20/17 at 09:00 Polyethylene Glycol (miraLAX) 17 gm PRN DAILY PRN PO CONSTIPATION; Start at 22:15 Potassium Chloride (Klor-Con) 40 meq DAILY PO Last administered on 05/24/17 08 :07; Start 05/20/17 at 09:00 Sennosides (Senna) 8.6 mg DAILY PO Last administered on 05/24/17 08:08; Start 05/20/17 at 09:00 Tamsulosin HCl (Flomax) 0.4 mg DAILY PO Last administered on 05/24/17 08:07; Start 05/20/17 at 09:00 Lisinopril (Prinivil) 40 mg DAILY PO Last administered on 05/24/17 08:08; Start 05/20/17 at 09:00 Divalproex Sodium (Depakote Sprinkles) 375 mg BID PO Last administered on 08:09; Start 05/20/17 at 21:00 Sertraline HCl (Zoloft) 25 mg DAILY PO Last administered on 05/22/17 08:05; Start 05/21/17 at 09:00; Stop 05/22/17 at 11:02; Status DC Sertraline HCl (Zoloft) 50 mg DAILY PO Last administered on 05/24/17 08:07; Start 05/23/17 at 09:00; Stop 05/24/17 at 18:07; Status DC Trazodone HCl (Desyrel) 50 mg PRN QHS PRN PO INSOMNIA, MAY REPEAT X1 Last administered on 05/23/17 20:17; Start 05/22/17 at 19:45 Cyanocobalamin (Vitamin B-12) 1,000 mcg DAILY PO Last administered on 08:07; Start 05/23/17 at 12:30 Prenat Multivit/ [employer]/Iron/Folic Ac (Multivitamin ) 1 tab DAILY PO Last administered on 05/24/17 08:07; Start 05/23/17 at 12:30 Sertraline HCl (Zoloft) 75 mg DAILY PO ; Start 05/25/17 at 09:00 Active Scripts Active Reported Polyethylene Glycol 3350 255 Gm Powder 17 Gm PO PRN DAILY PRN Tylenol (Acetaminophen) 325 Mg Tablet 650 Mg PO PRN Q6HRS PRN Lorazepam 0.5 Mg Tablet 0.25 Mg PO PRN Q6HRS PRN Furosemide 40 Mg Tablet 40 Mg PO DAILY Klor-Con M20 (Potassium Chloride) 20 Meq Tab.er.prt 40 Meq PO DAILY Lisinopril 40 Mg Tablet 40 Mg PO DAILY Vitamin D3 (Cholecalciferol (Vitamin D3)) 1,000 Unit Tablet 1,000 Unit PO DAILY Aspirin 81 Mg Tab.chew 81 Mg PO DAILY Amiodarone Hcl 200 Mg Tablet 200 Mg PO DAILY Atorvastatin Calcium 10 Mg Tablet 10 Mg PO QHS Tamsulosin Hcl 0.4 Mg Cap.er.24h 0.4 Mg PO DAILY Melatonin 3 Mg Tablet 3 Mg PO HS Senokot (Sennosides) 8.6 Mg Tablet 8.6 Mg PO DAILY Carvedilol 12.5 Mg Tablet 12.5 Mg PO BIDWMEALS Divalproex Sodium 125 Mg Cap.sprink 250 Mg PO BID Diagnosis: Problems: (1) Behavioral change (2) Anxiety disorder (3) Impulse control disorder (4) Dementia, vascular, with depression (5) Dementia, vascular, with delusions (6) Dementia in Alzheimer's disease with depression (7) Dementia in Alzheimer's disease with delusions JING ROSS MD May 24, 2017 19:57
[2017-05-24] MEDS: traZODone 50 MG TABLET. PO PRN (20:06)
[2017-05-24] MEDS: MELATONIN 3 MG TABLET PO SCH (20:06)
[2017-05-24] MEDS: ATORVASTATIN CALCIUM 10 MG TABLET. PO SCH (20:06)
[2017-05-25 06:02] VITALS: BP 120/58
--- NOTE | 2017-05-25 06:44 | PN ---
DATE: 05/23/2017 PSYCHIATRIC PROGRESS NOTE This is a late entry of 05/23/2017 covers elements not covered in my initial note. SUBJECTIVE: The patient slept 8-1/4 hours previous night. I met with the patient evening of 05/23/2017. He remains confused, has been wandering sleeps in anybody finds oblivious of where his room is. He is oriented to himself, otherwise cooperative. No CV, , pulmonary, eye system symptoms on review. Vision is poor. MENTAL STATUS EXAM: Oriented to himself. Insight, judgment, recent and remote memory, attention, concentration, fund of knowledge poor, consistent with his diagnosis mentioned in my initial note. Valproic acid level is 40. PLAN: Continue Depakote Sprinkles 375 mg b.i.d., Ativan p.r.n., melatonin 3 mg at bedtime, Zoloft 50 mg a day, trazodone 50 at bedtime, february repeat x 1 for insomnia. MAN Lucas ROSS MD DR: JERI/pedro JOB#: [id number] / [id number]
[2017-05-25] MEDS: CARVEDILOL 12.5 MG TABLET PO SCH ×2 (08:00→16:45)
[2017-05-25 08:38] VITALS: BP 90/54
[2017-05-25] MEDS: DIVALPROEX 125 MG CAP.SPRINK PO SCH ×2 (08:39→20:47)
[2017-05-25] MEDS: FUROSEMIDE 40 MG TABLET PO SCH (08:39)
[2017-05-25] MEDS: ASPIRIN 81 MG TAB.CHEW PO SCH (08:39)
[2017-05-25] MEDS: POTASSIUM CHLORIDE 20 MEQ TABLET.ER. PO SCH (08:39)
[2017-05-25] MEDS: PRENATAL MULTIVITAMIN TABLET. PO SCH (08:39)
[2017-05-25] MEDS: TAMSULOSIN 0.4 MG CAP.ER.24H. PO SCH (08:39)
[2017-05-25] MEDS: CYANOCOBALAMIN (VITAMIN B-12) 1,000 MCG TABLET. PO SCH (08:39)
[2017-05-25] MEDS: CHOLECALCIFEROL (VITAMIN D3) 1,000 UNIT TABLET PO SCH (08:39)
[2017-05-25] MEDS: SENNOSIDES 8.6 MG TABLET PO SCH (08:39)
[2017-05-25] MEDS: LISINOPRIL 20 MG TABLET PO SCH (08:40)
[2017-05-25] MEDS: AMIODARONE HCL 200 MG TABLET PO SCH (08:42)
[2017-05-25] MEDS: SERTRALINE 50 MG TABLET. PO SCH (08:46)
[2017-05-25 16:04] VITALS: BP 99/57
--- NOTE | 2017-05-25 20:01 | PDOC ---
Exam Willard Demential Exam: Willard Note: Please also refer to the separate dictated note~for this date of service dictated separately.~Patient seen individually. Discussed the patient with Nursing staff reviewed the chart.~Reviewed interim history and current functioning. Reviewed vital signs,~Labs/ Radiology~and current medications noted below. Continue current treatment with the changes noted in the dictated addendum note Assessment: Vital Signs: Vital Signs Date Time Temp Pulse Resp B/P (MAP) Pulse Ox O2 Delivery O2 Flow Rate FiO2 05/25/17 16:45 60 99/57 05/25/17 16:04 98.6 20 95 Room Air I&O Intake and Output 05/25/17 07:00 Intake Total 800 ml Balance 800 ml Intake Oral 800 ml Current Medications: Meds: Current Medications Multi-Ingredient Ointment (Analgesic [place]) 1 damaso PRN QID PRN TP MUSCLE PAIN; Start 05/19/17 at 21:45 Al Hydroxide/Mg Hydroxide (Mylanta Plus Xs) 15 ml PRN AFTMEALHC PRN PO DYSPEPSIA; Start 05/19/17 at 21:45 Magnesium Hydroxide (Milk Of Magnesia) 2,400 mg PRN QHS PRN PO CONSTIPATION; Start 05/19/17 at 21:45 Divalproex Sodium (Depakote Sprinkles) 250 mg BID PO Last administered on 08:46; Start 05/19/17 at 22:15; Stop 05/20/17 at 18:55; Status DC Lorazepam (Ativan) 0.25 mg PRN Q6HRS PRN PO ANXIETY / AGITATION Last administered on 05/22/17 01:02; Start 05/19/17 at 22:00 Melatonin 3 mg QHS PO Last administered on 05/24/17 20:06; Start 05/19/17 at 22:15 Acetaminophen (Tylenol) 650 mg PRN Q6HRS PRN PO PAIN / TEMP; Start 05/19/17 at 22:00 Amiodarone HCl (Cordarone) 200 mg DAILY PO Last administered on 05/25/17 08:42 ; Start 05/20/17 at 09:00 Aspirin (Children'S Aspirin) 81 mg DAILY PO Last administered on 05/25/17 08: 39; Start 05/20/17 at 09:00 Atorvastatin Calcium (Lipitor) 10 mg QHS PO Last administered on 05/24/17 20: 06; Start 05/19/17 at 22:15 Carvedilol (Coreg) 12.5 mg BIDWMEALS PO Last administered on 05/24/17 17:11; Start 05/20/17 at 08:00 Vitamin D (Vitamin D3) 1,000 unit DAILY PO Last administered on 05/25/17 08:39 ; Start 05/20/17 at 09:00 Furosemide (Lasix) 40 mg DAILY PO Last administered on 05/25/17 08:39; Start 05/20/17 at 09:00 Polyethylene Glycol (miraLAX) 17 gm PRN DAILY PRN PO CONSTIPATION; Start at 22:15 Potassium Chloride (Klor-Con) 40 meq DAILY PO Last administered on 05/25/17 08 :39; Start 05/20/17 at 09:00 Sennosides (Senna) 8.6 mg DAILY PO Last administered on 05/25/17 08:39; Start 05/20/17 at 09:00 Tamsulosin HCl (Flomax) 0.4 mg DAILY PO Last administered on 05/25/17 08:39; Start 05/20/17 at 09:00 Lisinopril (Prinivil) 40 mg DAILY PO Last administered on 05/24/17 08:08; Start 05/20/17 at 09:00 Divalproex Sodium (Depakote Sprinkles) 375 mg BID PO Last administered on 08:39; Start 05/20/17 at 21:00 Sertraline HCl (Zoloft) 25 mg DAILY PO Last administered on 05/22/17 08:05; Start 05/21/17 at 09:00; Stop 05/22/17 at 11:02; Status DC Sertraline HCl (Zoloft) 50 mg DAILY PO Last administered on 05/24/17 08:07; Start 05/23/17 at 09:00; Stop 05/24/17 at 18:07; Status DC Trazodone HCl (Desyrel) 50 mg PRN QHS PRN PO INSOMNIA, MAY REPEAT X1 Last administered on 05/24/17 20:06; Start 05/22/17 at 19:45 Cyanocobalamin (Vitamin B-12) 1,000 mcg DAILY PO Last administered on 08:39; Start 05/23/17 at 12:30 Prenat Multivit/ [place]/Iron/Folic Ac (Multivitamin ) 1 tab DAILY PO Last administered on 05/25/17 08:39; Start 05/23/17 at 12:30 Sertraline HCl (Zoloft) 75 mg DAILY PO Last administered on 05/25/17 08:46; Start 05/25/17 at 09:00 Active Scripts Active Reported Polyethylene Glycol 3350 255 Gm Powder 17 Gm PO PRN DAILY PRN Tylenol (Acetaminophen) 325 Mg Tablet 650 Mg PO PRN Q6HRS PRN Lorazepam 0.5 Mg Tablet 0.25 Mg PO PRN Q6HRS PRN Furosemide 40 Mg Tablet 40 Mg PO DAILY Klor-Con M20 (Potassium Chloride) 20 Meq Tab.er.prt 40 Meq PO DAILY Lisinopril 40 Mg Tablet 40 Mg PO DAILY Vitamin D3 (Cholecalciferol (Vitamin D3)) 1,000 Unit Tablet 1,000 Unit PO DAILY Aspirin 81 Mg Tab.chew 81 Mg PO DAILY Amiodarone Hcl 200 Mg Tablet 200 Mg PO DAILY Atorvastatin Calcium 10 Mg Tablet 10 Mg PO QHS Tamsulosin Hcl 0.4 Mg Cap.er.24h 0.4 Mg PO DAILY Melatonin 3 Mg Tablet 3 Mg PO HS Senokot (Sennosides) 8.6 Mg Tablet 8.6 Mg PO DAILY Carvedilol 12.5 Mg Tablet 12.5 Mg PO BIDWMEALS Divalproex Sodium 125 Mg Cap.sprink 250 Mg PO BID Diagnosis: Problems: (1) Anxiety disorder (2) Impulse control disorder (3) Behavioral change (4) Dementia, vascular, with depression (5) Dementia, vascular, with delusions (6) Dementia in Alzheimer's disease with depression (7) Dementia in Alzheimer's disease with delusions JING ROSS MD May 25, 2017 20:01
[2017-05-25] MEDS: traZODone 50 MG TABLET. PO PRN (20:47)
[2017-05-25] MEDS: ATORVASTATIN CALCIUM 10 MG TABLET. PO SCH (20:47)
[2017-05-25] MEDS: MELATONIN 3 MG TABLET PO SCH (20:47)
--- NOTE | 2017-05-25 21:54 | PN ---
DATE: 05/24/2017 This late entry 05/24/2017 covers elements not covered in my initial note. SUBJECTIVE: The patient was seen individually evening of 05/24/2017. The patient slept 8-1/2 hours previous night, has been cooperative, confused, took his trazodone last night. REVIEW OF SYSTEMS: Poor vision, ambulation impaired. No CV, , pulmonary, ENT system, symptoms on review, reliability poor. MENTAL STATUS EXAM: Oriented to himself. Insight, judgment, recent and remote memory, attention, concentration, fund of knowledge poor, consistent with his diagnosis mentioned in my initial note. LABORATORY DATA: Reviewed. IMPRESSION: Major neurocognitive disorder, Alzheimer, vascular with depression, delusion, behavioral disturbance. Rest unchanged. PLAN: Increase Zoloft from 50 mg a day to 75 mg a day. Continue rest of the psychotropics, adjust as clinically indicated. MAN Lucas ROSS MD DR: JERI/pedro JOB#: [id number] / [id number]
[2017-05-26 05:50] VITALS: BP 137/68
[2017-05-26] MEDS: LISINOPRIL 20 MG TABLET PO SCH (08:20)
[2017-05-26] MEDS: CYANOCOBALAMIN (VITAMIN B-12) 1,000 MCG TABLET. PO SCH (08:21)
[2017-05-26] MEDS: FUROSEMIDE 40 MG TABLET PO SCH (08:21)
[2017-05-26] MEDS: CARVEDILOL 12.5 MG TABLET PO SCH ×2 (08:21→17:00)
[2017-05-26] MEDS: POTASSIUM CHLORIDE 20 MEQ TABLET.ER. PO SCH (08:21)
[2017-05-26] MEDS: CHOLECALCIFEROL (VITAMIN D3) 1,000 UNIT TABLET PO SCH (08:21)
[2017-05-26] MEDS: SENNOSIDES 8.6 MG TABLET PO SCH (08:21)
[2017-05-26] MEDS: AMIODARONE HCL 200 MG TABLET PO SCH (08:21)
[2017-05-26] MEDS: ASPIRIN 81 MG TAB.CHEW PO SCH (08:21)
[2017-05-26] MEDS: PRENATAL MULTIVITAMIN TABLET. PO SCH (08:21)
[2017-05-26] MEDS: SERTRALINE 50 MG TABLET. PO SCH (08:22)
[2017-05-26] MEDS: TAMSULOSIN 0.4 MG CAP.ER.24H. PO SCH (08:22)
[2017-05-26] MEDS: DIVALPROEX 125 MG CAP.SPRINK PO SCH ×2 (08:22→19:53)
[2017-05-26 16:11] VITALS: BP 90/56
[2017-05-26] MEDS: ATORVASTATIN CALCIUM 10 MG TABLET. PO SCH (19:53)
[2017-05-26] MEDS: MELATONIN 3 MG TABLET PO SCH (19:53)
[2017-05-26] MEDS: traZODone 50 MG TABLET. PO PRN (19:56)
--- NOTE | 2017-05-26 19:57 | PDOC ---
Exam Willard Demential Exam: Willard Note: Please also refer to the separate dictated note~for this date of service dictated separately.~Patient seen individually. Discussed the patient with Nursing staff reviewed the chart.~Reviewed interim history and current functioning. Reviewed vital signs,~Labs/ Radiology~and current medications noted below. Continue current treatment with the changes noted in the dictated addendum note Assessment: Vital Signs: Vital Signs Date Time Temp Pulse Resp B/P (MAP) Pulse Ox O2 Delivery O2 Flow Rate FiO2 05/26/17 17:00 101 90/56 05/26/17 16:11 97.9 18 94 Room Air I&O Intake and Output 05/26/17 07:00 Intake Total 840 ml Balance 840 ml Intake Oral 840 ml Current Medications: Meds: Current Medications Multi-Ingredient Ointment (Analgesic [place]) 1 damaso PRN QID PRN TP MUSCLE PAIN; Start 05/19/17 at 21:45 Al Hydroxide/Mg Hydroxide (Mylanta Plus Xs) 15 ml PRN AFTMEALHC PRN PO DYSPEPSIA; Start 05/19/17 at 21:45 Magnesium Hydroxide (Milk Of Magnesia) 2,400 mg PRN QHS PRN PO CONSTIPATION; Start 05/19/17 at 21:45 Divalproex Sodium (Depakote Sprinkles) 250 mg BID PO Last administered on 08:46; Start 05/19/17 at 22:15; Stop 05/20/17 at 18:55; Status DC Lorazepam (Ativan) 0.25 mg PRN Q6HRS PRN PO ANXIETY / AGITATION Last administered on 05/22/17 01:02; Start 05/19/17 at 22:00 Melatonin 3 mg QHS PO Last administered on 05/26/17 19:53; Start 05/19/17 at 22:15 Acetaminophen (Tylenol) 650 mg PRN Q6HRS PRN PO PAIN / TEMP; Start 05/19/17 at 22:00 Amiodarone HCl (Cordarone) 200 mg DAILY PO Last administered on 05/26/17 08:21 ; Start 05/20/17 at 09:00 Aspirin (Children'S Aspirin) 81 mg DAILY PO Last administered on 05/26/17 08: 21; Start 05/20/17 at 09:00 Atorvastatin Calcium (Lipitor) 10 mg QHS PO Last administered on 05/26/17 19: 53; Start 05/19/17 at 22:15 Carvedilol (Coreg) 12.5 mg BIDWMEALS PO Last administered on 05/26/17 08:21; Start 05/20/17 at 08:00 Vitamin D (Vitamin D3) 1,000 unit DAILY PO Last administered on 05/26/17 08:21 ; Start 05/20/17 at 09:00 Furosemide (Lasix) 40 mg DAILY PO Last administered on 05/26/17 08:21; Start 05/20/17 at 09:00 Polyethylene Glycol (miraLAX) 17 gm PRN DAILY PRN PO CONSTIPATION; Start at 22:15 Potassium Chloride (Klor-Con) 40 meq DAILY PO Last administered on 05/26/17 08 :21; Start 05/20/17 at 09:00 Sennosides (Senna) 8.6 mg DAILY PO Last administered on 05/26/17 08:21; Start 05/20/17 at 09:00 Tamsulosin HCl (Flomax) 0.4 mg DAILY PO Last administered on 05/26/17 08:22; Start 05/20/17 at 09:00 Lisinopril (Prinivil) 40 mg DAILY PO Last administered on 05/26/17 08:20; Start 05/20/17 at 09:00 Divalproex Sodium (Depakote Sprinkles) 375 mg BID PO Last administered on 19:53; Start 05/20/17 at 21:00 Sertraline HCl (Zoloft) 25 mg DAILY PO Last administered on 05/22/17 08:05; Start 05/21/17 at 09:00; Stop 05/22/17 at 11:02; Status DC Sertraline HCl (Zoloft) 50 mg DAILY PO Last administered on 05/24/17 08:07; Start 05/23/17 at 09:00; Stop 05/24/17 at 18:07; Status DC Trazodone HCl (Desyrel) 50 mg PRN QHS PRN PO INSOMNIA, MAY REPEAT X1 Last administered on 05/25/17 20:47; Start 05/22/17 at 19:45 Cyanocobalamin (Vitamin B-12) 1,000 mcg DAILY PO Last administered on 08:21; Start 05/23/17 at 12:30 Prenat Multivit/ [place]/Iron/Folic Ac (Multivitamin ) 1 tab DAILY PO Last administered on 05/26/17 08:21; Start 05/23/17 at 12:30 Sertraline HCl (Zoloft) 75 mg DAILY PO Last administered on 05/26/17 08:22; Start 05/25/17 at 09:00 Active Scripts Active Reported Polyethylene Glycol 3350 255 Gm Powder 17 Gm PO PRN DAILY PRN Tylenol (Acetaminophen) 325 Mg Tablet 650 Mg PO PRN Q6HRS PRN Lorazepam 0.5 Mg Tablet 0.25 Mg PO PRN Q6HRS PRN Furosemide 40 Mg Tablet 40 Mg PO DAILY Klor-Con M20 (Potassium Chloride) 20 Meq Tab.er.prt 40 Meq PO DAILY Lisinopril 40 Mg Tablet 40 Mg PO DAILY Vitamin D3 (Cholecalciferol (Vitamin D3)) 1,000 Unit Tablet 1,000 Unit PO DAILY Aspirin 81 Mg Tab.chew 81 Mg PO DAILY Amiodarone Hcl 200 Mg Tablet 200 Mg PO DAILY Atorvastatin Calcium 10 Mg Tablet 10 Mg PO QHS Tamsulosin Hcl 0.4 Mg Cap.er.24h 0.4 Mg PO DAILY Melatonin 3 Mg Tablet 3 Mg PO HS Senokot (Sennosides) 8.6 Mg Tablet 8.6 Mg PO DAILY Carvedilol 12.5 Mg Tablet 12.5 Mg PO BIDWMEALS Divalproex Sodium 125 Mg Cap.sprink 250 Mg PO BID Diagnosis: Problems: (1) Behavioral change (2) Anxiety disorder (3) Impulse control disorder (4) Dementia, vascular, with depression (5) Dementia, vascular, with delusions (6) Dementia in Alzheimer's disease with depression (7) Dementia in Alzheimer's disease with delusions JNIG ROSS MD May 26, 2017 19:57
--- NOTE | 2017-05-26 23:39 | PN ---
DATE: 05/25/2017 PSYCHIATRIC PROGRESS NOTE This is a late entry 05/25/2017, covers elements not covered in my initial note. SUBJECTIVE: I met with the patient the evening of 05/25/2017. He remains confused, wanders the hallways. REVIEW OF SYSTEMS: Poor vision, impaired ambulation. No CV, , pulmonary, ENT system symptoms on review. Reliability poor. MENTAL STATUS EXAM: Oriented to himself. Insight, judgment, recent and remote memory, attention, concentration, fund of knowledge poor, consistent with his diagnoses. This note covers elements not covered in my initial note of 05/25/2017. IMPRESSION: Major neurocognitive disorder, Alzheimer, vascular with depression, delusion and behavioral disturbance; anxiety disorder, unspecified; impulse control disorder, unspecified. PLAN: Continue current psychotropics, Depakote, Ativan p.r.n., melatonin, Zoloft, trazodone p.r.n. Adjust as clinically indicated. Valproic acid level is 40 despite being subtherapeutic. Clinically is adequate for now and we given his age, risk, benefit ratio we will leave the dosage and change for now. MAN Lucas ROSS MD DR: JERI/pedro JOB#: [id number] / [id number]
[2017-05-27] MEDS: LORazepam 0.5 MG TABLET PO PRN (01:25)
[2017-05-27 06:16] VITALS: BP 102/61
[2017-05-27] MEDS: CARVEDILOL 12.5 MG TABLET PO SCH ×2 (08:00→16:34)
[2017-05-27] MEDS: LISINOPRIL 20 MG TABLET PO SCH (09:00)
[2017-05-27] MEDS: AMIODARONE HCL 200 MG TABLET PO SCH (09:00)
[2017-05-27] MEDS: CHOLECALCIFEROL (VITAMIN D3) 1,000 UNIT TABLET PO SCH (09:48)
[2017-05-27] MEDS: SENNOSIDES 8.6 MG TABLET PO SCH (09:48)
[2017-05-27] MEDS: FUROSEMIDE 40 MG TABLET PO SCH (09:48)
[2017-05-27] MEDS: SERTRALINE 50 MG TABLET. PO SCH (09:48)
[2017-05-27] MEDS: DIVALPROEX 125 MG CAP.SPRINK PO SCH ×2 (09:48→20:11)
[2017-05-27] MEDS: PRENATAL MULTIVITAMIN TABLET. PO SCH (09:48)
[2017-05-27] MEDS: CYANOCOBALAMIN (VITAMIN B-12) 1,000 MCG TABLET. PO SCH (09:48)
[2017-05-27] MEDS: ASPIRIN 81 MG TAB.CHEW PO SCH (09:48)
[2017-05-27] MEDS: TAMSULOSIN 0.4 MG CAP.ER.24H. PO SCH (09:49)
[2017-05-27] MEDS: POTASSIUM CHLORIDE 20 MEQ TABLET.ER. PO SCH (09:49)
[2017-05-27 16:18] VITALS: BP 108/62
[2017-05-27] MEDS: MELATONIN 3 MG TABLET PO SCH (20:11)
[2017-05-27] MEDS: ATORVASTATIN CALCIUM 10 MG TABLET. PO SCH (20:12)
[2017-05-27] MEDS: MIRTAZAPINE 7.5 MG TABLET. PO SCH (20:13)
[2017-05-27] MEDS: traZODone 50 MG TABLET. PO PRN (20:13)
--- NOTE | 2017-05-27 21:35 | PDOC ---
Exam Willard Demential Exam: Willadr Note: Please also refer to the separate dictated note~for this date of service dictated separately.~Patient seen individually. Discussed the patient with Nursing staff reviewed the chart.~Reviewed interim history and current functioning. Reviewed vital signs,~Labs/ Radiology~and current medications noted below. Continue current treatment with the changes noted in the dictated addendum note Assessment: Vital Signs: Vital Signs Date Time Temp Pulse Resp B/P (MAP) Pulse Ox O2 Delivery O2 Flow Rate FiO2 05/27/17 16:34 71 108/62 05/27/17 16:18 98.2 18 95 05/26/17 16:11 Room Air I&O Intake and Output 05/27/17 07:00 Intake Total 960 ml Balance 960 ml Intake Oral 960 ml Current Medications: Meds: Current Medications Multi-Ingredient Ointment (Analgesic [place]) 1 damaso PRN QID PRN TP MUSCLE PAIN; Start 05/19/17 at 21:45 Al Hydroxide/Mg Hydroxide (Mylanta Plus Xs) 15 ml PRN AFTMEALHC PRN PO DYSPEPSIA; Start 05/19/17 at 21:45 Magnesium Hydroxide (Milk Of Magnesia) 2,400 mg PRN QHS PRN PO CONSTIPATION; Start 05/19/17 at 21:45 Divalproex Sodium (Depakote Sprinkles) 250 mg BID PO Last administered on 08:46; Start 05/19/17 at 22:15; Stop 05/20/17 at 18:55; Status DC Lorazepam (Ativan) 0.25 mg PRN Q6HRS PRN PO ANXIETY / AGITATION Last administered on 05/27/17 01:25; Start 05/19/17 at 22:00 Melatonin 3 mg QHS PO Last administered on 05/27/17 20:11; Start 05/19/17 at 22:15 Acetaminophen (Tylenol) 650 mg PRN Q6HRS PRN PO PAIN / TEMP; Start 05/19/17 at 22:00 Amiodarone HCl (Cordarone) 200 mg DAILY PO Last administered on 05/26/17 08:21 ; Start 05/20/17 at 09:00 Aspirin (Children'S Aspirin) 81 mg DAILY PO Last administered on 05/27/17 09: 48; Start 05/20/17 at 09:00 Atorvastatin Calcium (Lipitor) 10 mg QHS PO Last administered on 05/27/17 20: 12; Start 05/19/17 at 22:15 Carvedilol (Coreg) 12.5 mg BIDWMEALS PO Last administered on 05/26/17 08:21; Start 05/20/17 at 08:00 Vitamin D (Vitamin D3) 1,000 unit DAILY PO Last administered on 05/27/17 09:48 ; Start 05/20/17 at 09:00 Furosemide (Lasix) 40 mg DAILY PO Last administered on 05/27/17 09:48; Start 05/20/17 at 09:00 Polyethylene Glycol (miraLAX) 17 gm PRN DAILY PRN PO CONSTIPATION; Start at 22:15 Potassium Chloride (Klor-Con) 40 meq DAILY PO Last administered on 05/27/17 09 :49; Start 05/20/17 at 09:00 Sennosides (Senna) 8.6 mg DAILY PO Last administered on 05/27/17 09:48; Start 05/20/17 at 09:00 Tamsulosin HCl (Flomax) 0.4 mg DAILY PO Last administered on 05/27/17 09:49; Start 05/20/17 at 09:00 Lisinopril (Prinivil) 40 mg DAILY PO Last administered on 05/26/17 08:20; Start 05/20/17 at 09:00 Divalproex Sodium (Depakote Sprinkles) 375 mg BID PO Last administered on 20:11; Start 05/20/17 at 21:00 Sertraline HCl (Zoloft) 25 mg DAILY PO Last administered on 05/22/17 08:05; Start 05/21/17 at 09:00; Stop 05/22/17 at 11:02; Status DC Sertraline HCl (Zoloft) 50 mg DAILY PO Last administered on 05/24/17 08:07; Start 05/23/17 at 09:00; Stop 05/24/17 at 18:07; Status DC Trazodone HCl (Desyrel) 50 mg PRN QHS PRN PO INSOMNIA, MAY REPEAT X1 Last administered on 05/27/17 20:13; Start 05/22/17 at 19:45 Cyanocobalamin (Vitamin B-12) 1,000 mcg DAILY PO Last administered on 09:48; Start 05/23/17 at 12:30 Prenat Multivit/ [employer]/Iron/Folic Ac (Multivitamin ) 1 tab DAILY PO Last administered on 05/27/17 09:48; Start 05/23/17 at 12:30 Sertraline HCl (Zoloft) 75 mg DAILY PO Last administered on 05/27/17 09:48; Start 05/25/17 at 09:00 Mirtazapine (Remeron) 7.5 mg QHS PO Last administered on 05/27/17 20:13; Start 05/27/17 at 21:00 Active Scripts Active Reported Polyethylene Glycol 3350 255 Gm Powder 17 Gm PO PRN DAILY PRN Tylenol (Acetaminophen) 325 Mg Tablet 650 Mg PO PRN Q6HRS PRN Lorazepam 0.5 Mg Tablet 0.25 Mg PO PRN Q6HRS PRN Furosemide 40 Mg Tablet 40 Mg PO DAILY Klor-Con M20 (Potassium Chloride) 20 Meq Tab.er.prt 40 Meq PO DAILY Lisinopril 40 Mg Tablet 40 Mg PO DAILY Vitamin D3 (Cholecalciferol (Vitamin D3)) 1,000 Unit Tablet 1,000 Unit PO DAILY Aspirin 81 Mg Tab.chew 81 Mg PO DAILY Amiodarone Hcl 200 Mg Tablet 200 Mg PO DAILY Atorvastatin Calcium 10 Mg Tablet 10 Mg PO QHS Tamsulosin Hcl 0.4 Mg Cap.er.24h 0.4 Mg PO DAILY Melatonin 3 Mg Tablet 3 Mg PO HS Senokot (Sennosides) 8.6 Mg Tablet 8.6 Mg PO DAILY Carvedilol 12.5 Mg Tablet 12.5 Mg PO BIDWMEALS Divalproex Sodium 125 Mg Cap.sprink 250 Mg PO BID Diagnosis: Problems: (1) Behavioral change (2) Anxiety disorder (3) Impulse control disorder (4) Dementia, vascular, with depression (5) Dementia, vascular, with delusions (6) Dementia in Alzheimer's disease with depression (7) Dementia in Alzheimer's disease with delusions JING ROSS MD May 27, 2017 21:35
--- NOTE | 2017-05-28 00:54 | PN ---
DATE: 05/26/2017 PSYCHIATRIC PROGRESS NOTE This is a late entry of 05/26/2017 covers elements not covered in my initial note. SUBJECTIVE: The patient staffed at a treatment team meeting with the entire team morning of 05/26/2017 seen individually evening of 05/26/2017. At the treatment team meeting address the patient's history, diagnosis, current medications, discharge aftercare plans. Sleeping about 7 hours. Appetite 80%. REVIEW OF SYSTEMS: Poor vision, impaired ambulation. No CV, , pulmonary, ENT system symptoms on review. Reliability poor. MENTAL STATUS EXAM: Oriented to himself. Insight, judgment, recent and remote memory, attention, concentration, fund of knowledge poor, consistent with his diagnosis mentioned in my initial note. PLAN: Continue psychotropics mentioned in my initial note. Adjust further as clinically indicated. MAN Lucas ROSS MD DR: JERI/pedro JOB#: [id number] / [id number]
[2017-05-28 06:04] VITALS: BP 145/84
[2017-05-28] MEDS: CYANOCOBALAMIN (VITAMIN B-12) 1,000 MCG TABLET. PO SCH (09:10)
[2017-05-28] MEDS: FUROSEMIDE 40 MG TABLET PO SCH (09:11)
[2017-05-28] MEDS: CARVEDILOL 12.5 MG TABLET PO SCH ×2 (09:11→17:35)
[2017-05-28] MEDS: SERTRALINE 50 MG TABLET. PO SCH (09:11)
[2017-05-28] MEDS: SENNOSIDES 8.6 MG TABLET PO SCH (09:12)
[2017-05-28] MEDS: POTASSIUM CHLORIDE 20 MEQ TABLET.ER. PO SCH (09:12)
[2017-05-28] MEDS: AMIODARONE HCL 200 MG TABLET PO SCH (09:12)
[2017-05-28] MEDS: CHOLECALCIFEROL (VITAMIN D3) 1,000 UNIT TABLET PO SCH (09:12)
[2017-05-28] MEDS: ASPIRIN 81 MG TAB.CHEW PO SCH (09:12)
[2017-05-28] MEDS: TAMSULOSIN 0.4 MG CAP.ER.24H. PO SCH (09:12)
[2017-05-28] MEDS: PRENATAL MULTIVITAMIN TABLET. PO SCH (09:12)
[2017-05-28] MEDS: DIVALPROEX 125 MG CAP.SPRINK PO SCH ×2 (09:13→19:40)
[2017-05-28] MEDS: LISINOPRIL 20 MG TABLET PO SCH (09:14)
[2017-05-28 15:52] VITALS: BP 130/78
--- NOTE | 2017-05-28 18:28 | PN ---
DATE: 05/27/2017 PSYCHIATRIC PROGRESS NOTE This is a late entry of 05/27/2017 covers the elements not covered in my initial note. SUBJECTIVE: The patient was seen individually evening of 05/27/2017, discussed with nursing staff. The patient has done reasonably well during the dayshift. Yesterday, he was having difficulty taking his medications on 05/26/2017 and on 05/27/2017 he would spit them out. Nursing staff crushed his medications and then he was compliant. He awoke at 11:30 a.m. the previous night, trazodone was repeated he was trying to kick staff. More delirious staff wonder whether he had nightmare causing the above. REVIEW OF SYSTEMS: Poor vision. No CV, , pulmonary, eye, ENT system symptoms on review. Reliability poor. MENTAL STATUS EXAM: Oriented More reactive to himself. Insight, judgment, recent and remote memory, attention, concentration, fund of knowledge poor, consistent with his diagnosis mentioned in my initial note. IMPRESSION: Major neurocognitive disorder, Alzheimer, vascular with depression, delusion and behavioral disturbance; anxiety disorder, unspecified; impulse control disorder, unspecified. Rest unchanged. PLAN: Continue Depakote along with Ativan p.r.n., melatonin, Zoloft, trazodone. He slept poorly the night before. We will start Remeron 7.5 mg p.o. at bedtime, which should also help some of the anxiety, irritability and augment the Zoloft as an antidepressant antianxiety agent. JING ROSS MD DR: JERI/pedro JOB#: [id number] / [id number]
[2017-05-28] MEDS: MELATONIN 3 MG TABLET PO SCH (19:40)
[2017-05-28] MEDS: ATORVASTATIN CALCIUM 10 MG TABLET. PO SCH (19:40)
[2017-05-28] MEDS: MIRTAZAPINE 7.5 MG TABLET. PO SCH (19:40)
[2017-05-28] MEDS: traZODone 50 MG TABLET. PO PRN (19:41)
--- NOTE | 2017-05-28 21:42 | PDOC ---
Exam Willard Demential Exam: Willard Note: Please also refer to the separate dictated note~for this date of service dictated separately.~Patient seen individually. Discussed the patient with Nursing staff reviewed the chart.~Reviewed interim history and current functioning. Reviewed vital signs,~Labs/ Radiology~and current medications noted below. Continue current treatment with the changes noted in the dictated addendum note Assessment: Vital Signs: Vital Signs Date Time Temp Pulse Resp B/P (MAP) Pulse Ox O2 Delivery O2 Flow Rate FiO2 05/28/17 17:35 60 130/78 05/28/17 15:52 97.5 18 93 05/26/17 16:11 Room Air I&O Intake and Output 05/28/17 07:00 Intake Total 960 ml Balance 960 ml Intake Oral 960 ml Current Medications: Meds: Current Medications Multi-Ingredient Ointment (Analgesic [place]) 1 damaso PRN QID PRN TP MUSCLE PAIN; Start 05/19/17 at 21:45 Al Hydroxide/Mg Hydroxide (Mylanta Plus Xs) 15 ml PRN AFTMEALHC PRN PO DYSPEPSIA; Start 05/19/17 at 21:45 Magnesium Hydroxide (Milk Of Magnesia) 2,400 mg PRN QHS PRN PO CONSTIPATION; Start 05/19/17 at 21:45 Divalproex Sodium (Depakote Sprinkles) 250 mg BID PO Last administered on 08:46; Start 05/19/17 at 22:15; Stop 05/20/17 at 18:55; Status DC Lorazepam (Ativan) 0.25 mg PRN Q6HRS PRN PO ANXIETY / AGITATION Last administered on 05/27/17 01:25; Start 05/19/17 at 22:00 Melatonin 3 mg QHS PO Last administered on 05/28/17 19:40; Start 05/19/17 at 22:15 Acetaminophen (Tylenol) 650 mg PRN Q6HRS PRN PO PAIN / TEMP; Start 05/19/17 at 22:00 Amiodarone HCl (Cordarone) 200 mg DAILY PO Last administered on 05/28/17 09:12 ; Start 05/20/17 at 09:00 Aspirin (Children'S Aspirin) 81 mg DAILY PO Last administered on 05/28/17 09: 12; Start 05/20/17 at 09:00 Atorvastatin Calcium (Lipitor) 10 mg QHS PO Last administered on 05/28/17 19: 40; Start 05/19/17 at 22:15 Carvedilol (Coreg) 12.5 mg BIDWMEALS PO Last administered on 05/28/17 17:35; Start 05/20/17 at 08:00 Vitamin D (Vitamin D3) 1,000 unit DAILY PO Last administered on 05/28/17 09:12 ; Start 05/20/17 at 09:00 Furosemide (Lasix) 40 mg DAILY PO Last administered on 05/28/17 09:11; Start 05/20/17 at 09:00 Polyethylene Glycol (miraLAX) 17 gm PRN DAILY PRN PO CONSTIPATION; Start at 22:15 Potassium Chloride (Klor-Con) 40 meq DAILY PO Last administered on 05/28/17 09 :12; Start 05/20/17 at 09:00 Sennosides (Senna) 8.6 mg DAILY PO Last administered on 05/28/17 09:12; Start 05/20/17 at 09:00 Tamsulosin HCl (Flomax) 0.4 mg DAILY PO Last administered on 05/28/17 09:12; Start 05/20/17 at 09:00 Lisinopril (Prinivil) 40 mg DAILY PO Last administered on 05/28/17 09:14; Start 05/20/17 at 09:00 Divalproex Sodium (Depakote Sprinkles) 375 mg BID PO Last administered on 19:40; Start 05/20/17 at 21:00 Sertraline HCl (Zoloft) 25 mg DAILY PO Last administered on 05/22/17 08:05; Start 05/21/17 at 09:00; Stop 05/22/17 at 11:02; Status DC Sertraline HCl (Zoloft) 50 mg DAILY PO Last administered on 05/24/17 08:07; Start 05/23/17 at 09:00; Stop 05/24/17 at 18:07; Status DC Trazodone HCl (Desyrel) 50 mg PRN QHS PRN PO INSOMNIA, MAY REPEAT X1 Last administered on 05/28/17 19:41; Start 05/22/17 at 19:45 Cyanocobalamin (Vitamin B-12) 1,000 mcg DAILY PO Last administered on 09:10; Start 05/23/17 at 12:30 Prenat Multivit/ [employer]/Iron/Folic Ac (Multivitamin ) 1 tab DAILY PO Last administered on 05/28/17 09:12; Start 05/23/17 at 12:30 Sertraline HCl (Zoloft) 75 mg DAILY PO Last administered on 05/28/17 09:11; Start 05/25/17 at 09:00 Mirtazapine (Remeron) 7.5 mg QHS PO Last administered on 05/28/17 19:40; Start 05/27/17 at 21:00 Active Scripts Active Reported Polyethylene Glycol 3350 255 Gm Powder 17 Gm PO PRN DAILY PRN Tylenol (Acetaminophen) 325 Mg Tablet 650 Mg PO PRN Q6HRS PRN Lorazepam 0.5 Mg Tablet 0.25 Mg PO PRN Q6HRS PRN Furosemide 40 Mg Tablet 40 Mg PO DAILY Klor-Con M20 (Potassium Chloride) 20 Meq Tab.er.prt 40 Meq PO DAILY Lisinopril 40 Mg Tablet 40 Mg PO DAILY Vitamin D3 (Cholecalciferol (Vitamin D3)) 1,000 Unit Tablet 1,000 Unit PO DAILY Aspirin 81 Mg Tab.chew 81 Mg PO DAILY Amiodarone Hcl 200 Mg Tablet 200 Mg PO DAILY Atorvastatin Calcium 10 Mg Tablet 10 Mg PO QHS Tamsulosin Hcl 0.4 Mg Cap.er.24h 0.4 Mg PO DAILY Melatonin 3 Mg Tablet 3 Mg PO HS Senokot (Sennosides) 8.6 Mg Tablet 8.6 Mg PO DAILY Carvedilol 12.5 Mg Tablet 12.5 Mg PO BIDWMEALS Divalproex Sodium 125 Mg Cap.sprink 250 Mg PO BID Diagnosis: Problems: (1) Behavioral change (2) Anxiety disorder (3) Impulse control disorder (4) Dementia, vascular, with depression (5) Dementia, vascular, with delusions (6) Dementia in Alzheimer's disease with depression (7) Dementia in Alzheimer's disease with delusions JING ROSS MD May 28, 2017 21:42
[2017-05-29 05:58] VITALS: BP 111/64
[2017-05-29] MEDS: SERTRALINE 50 MG TABLET. PO SCH (08:32)
[2017-05-29] MEDS: DIVALPROEX 125 MG CAP.SPRINK PO SCH ×2 (08:32→20:54)
[2017-05-29] MEDS: LISINOPRIL 20 MG TABLET PO SCH (08:33)
[2017-05-29] MEDS: POTASSIUM CHLORIDE 20 MEQ TABLET.ER. PO SCH (08:34)
[2017-05-29] MEDS: FUROSEMIDE 40 MG TABLET PO SCH (08:34)
[2017-05-29] MEDS: ASPIRIN 81 MG TAB.CHEW PO SCH (08:34)
[2017-05-29] MEDS: CYANOCOBALAMIN (VITAMIN B-12) 1,000 MCG TABLET. PO SCH (08:34)
[2017-05-29] MEDS: SENNOSIDES 8.6 MG TABLET PO SCH (08:34)
[2017-05-29] MEDS: PRENATAL MULTIVITAMIN TABLET. PO SCH (08:34)
[2017-05-29] MEDS: CHOLECALCIFEROL (VITAMIN D3) 1,000 UNIT TABLET PO SCH (08:34)
[2017-05-29] MEDS: TAMSULOSIN 0.4 MG CAP.ER.24H. PO SCH (08:34)
[2017-05-29] MEDS: AMIODARONE HCL 200 MG TABLET PO SCH (08:34)
[2017-05-29] MEDS: CARVEDILOL 12.5 MG TABLET PO SCH ×2 (08:35→17:00)
[2017-05-29 11:10] LABS: BASO % 1 % (0-3); EOS # 0.1 x10^3/uL (0.0-0.7); EOS % 2 % (0-3); HEMATOCRIT 36.7 % (39.0-53.0); HEMOGLOBIN 12.7 g/dL (13.0-17.5); LYMPH # 1.5 x10^3/uL (1.0-4.8); LYMPH % 23 % (24-48); MEAN CORPUSCULAR HEMOGLOBIN 37 pg (25-35); MEAN CORPUSCULAR HGB CONC 35 g/dL (31-37); MEAN CORPUSCULAR VOLUME 107 fL (79-100); MONO # 0.5 x10^3/uL (0.0-1.1); MONO % 8 % (0-9); NEUT # 4.4 x10^3uL (1.8-7.7); NEUT % 67 % (31-73); PLATELET COUNT 143 x10^3/uL (140-400); RED BLOOD COUNT 3.44 x10^6/uL (4.30-5.70); WHITE BLOOD COUNT 6.6 x10^3/uL (4.0-11.0)
[2017-05-29 11:22] LABS: ALBUMIN 3.3 g/dL (3.4-5.0); ALBUMIN/GLOBULIN RATIO 0.8 (1.0-1.7); CALCIUM 8.6 mg/dL (8.5-10.1); CREATININE 1.5 mg/dL (0.7-1.3); GFR 44.7; POTASSIUM 4.2 mmol/L (3.5-5.1); TOTAL BILIRUBIN 0.7 mg/dL (0.2-1.0); TOTAL PROTEIN 7.6 g/dL (6.4-8.2)
[2017-05-29] MEDS ORDERED: CYAN10005 PO (14:27)
[2017-05-29] MEDS ORDERED: MAGN2400 PO (14:30)
[2017-05-29] MEDS ORDERED: MAG355OR11 PO (14:30)
[2017-05-29] MEDS ORDERED: MIRT7.5T8 PO (14:33)
[2017-05-29] MEDS ORDERED: METH29OI TP (14:33)
[2017-05-29] MEDS ORDERED: PREN1TAB58 PO (14:35)
[2017-05-29] MEDS ORDERED: SERT25TA PO (14:36)
[2017-05-29] MEDS ORDERED: TRAZ50TA15 PO (14:37)
[2017-05-29 16:28] VITALS: BP 113/66
--- NOTE | 2017-05-29 19:49 | PDOC ---
Exam Willard Demential Exam: Willard Note: Please also refer to the separate dictated note~for this date of service dictated separately.~Patient seen individually. Discussed the patient with Nursing staff reviewed the chart.~Reviewed interim history and current functioning. Reviewed vital signs,~Labs/ Radiology~and current medications noted below. Continue current treatment with the changes noted in the dictated addendum note Assessment: Vital Signs: Vital Signs Date Time Temp Pulse Resp B/P (MAP) Pulse Ox O2 Delivery O2 Flow Rate FiO2 05/29/17 17:00 60 113/66 05/29/17 16:28 98.5 18 97 05/26/17 16:11 Room Air I&O Intake and Output 05/29/17 07:00 Intake Total 840 ml Balance 840 ml Intake Oral 840 ml Labs: Laboratory Tests Test 05/29/17 11:01 White Blood Count 6.6 x10^3/uL (4.0-11.0) Red Blood Count 3.44 x10^6/uL (4.30-5.70) L Hemoglobin 12.7 g/dL (13.0-17.5) L Hematocrit 36.7 % (39.0-53.0) L Mean Corpuscular Volume 107 fL (79-100) H Mean Corpuscular Hemoglobin 37 pg (25-35) H Mean Corpuscular Hemoglobin Concent 35 g/dL (31-37) Red Cell Distribution Width 14.0 % (11.5-14.5) Platelet Count 143 x10^3/uL (140-400) Neutrophils (%) (Auto) 67 % (31-73) Lymphocytes (%) (Auto) 23 % (24-48) L Monocytes (%) (Auto) 8 % (0-9) Eosinophils (%) (Auto) 2 % (0-3) Basophils (%) (Auto) 1 % (0-3) Neutrophils # (Auto) 4.4 x10^3uL (1.8-7.7) Lymphocytes # (Auto) 1.5 x10^3/uL (1.0-4.8) Monocytes # (Auto) 0.5 x10^3/uL (0.0-1.1) Eosinophils # (Auto) 0.1 x10^3/uL (0.0-0.7) Basophils # (Auto) 0.0 x10^3/uL (0.0-0.2) Sodium Level 143 mmol/L (136-145) Potassium Level 4.2 mmol/L (3.5-5.1) Chloride Level 107 mmol/L (98-107) Carbon Dioxide Level 29 mmol/L (21-32) Anion Gap 7 (6-14) Blood Urea Nitrogen 30 mg/dL (8-26) H Creatinine 1.5 mg/dL (0.7-1.3) H Estimated GFR (Cockcroft-Gault) 44.7 BUN/Creatinine Ratio 20 (6-20) Glucose Level 66 mg/dL (70-99) L Calcium Level 8.6 mg/dL (8.5-10.1) Total Bilirubin 0.7 mg/dL (0.2-1.0) Aspartate Amino Transferase (AST) 24 U/L (15-37) Alanine Aminotransferase (ALT) 21 U/L (16-63) Alkaline Phosphatase 76 U/L (46-116) Total Protein 7.6 g/dL (6.4-8.2) Albumin 3.3 g/dL (3.4-5.0) L Albumin/Globulin Ratio 0.8 (1.0-1.7) L Current Medications: Meds: Current Medications Multi-Ingredient Ointment (Analgesic [place]) 1 darrel PRN QID PRN TP MUSCLE PAIN; Start 05/19/17 at 21:45 Al Hydroxide/Mg Hydroxide (Mylanta Plus Xs) 15 ml PRN AFTMEALHC PRN PO DYSPEPSIA; Start 05/19/17 at 21:45 Magnesium Hydroxide (Milk Of Magnesia) 2,400 mg PRN QHS PRN PO CONSTIPATION; Start 05/19/17 at 21:45 Divalproex Sodium (Depakote Sprinkles) 250 mg BID PO Last administered on 08:46; Start 05/19/17 at 22:15; Stop 05/20/17 at 18:55; Status DC Lorazepam (Ativan) 0.25 mg PRN Q6HRS PRN PO ANXIETY / AGITATION Last administered on 05/27/17 01:25; Start 05/19/17 at 22:00 Melatonin 3 mg QHS PO Last administered on 05/28/17 19:40; Start 05/19/17 at 22:15 Acetaminophen (Tylenol) 650 mg PRN Q6HRS PRN PO PAIN / TEMP; Start 05/19/17 at 22:00 Amiodarone HCl (Cordarone) 200 mg DAILY PO Last administered on 05/29/17 08:34 ; Start 05/20/17 at 09:00 Aspirin (Children'S Aspirin) 81 mg DAILY PO Last administered on 05/29/17 08: 34; Start 05/20/17 at 09:00 Atorvastatin Calcium (Lipitor) 10 mg QHS PO Last administered on 05/28/17 19: 40; Start 05/19/17 at 22:15 Carvedilol (Coreg) 12.5 mg BIDWMEALS PO Last administered on 05/29/17 08:35; Start 05/20/17 at 08:00 Vitamin D (Vitamin D3) 1,000 unit DAILY PO Last administered on 05/29/17 08:34 ; Start 05/20/17 at 09:00 Furosemide (Lasix) 40 mg DAILY PO Last administered on 05/29/17 08:34; Start 05/20/17 at 09:00 Polyethylene Glycol (miraLAX) 17 gm PRN DAILY PRN PO CONSTIPATION; Start at 22:15 Potassium Chloride (Klor-Con) 40 meq DAILY PO Last administered on 05/29/17 08 :34; Start 05/20/17 at 09:00 Sennosides (Senna) 8.6 mg DAILY PO Last administered on 05/29/17 08:34; Start 05/20/17 at 09:00 Tamsulosin HCl (Flomax) 0.4 mg DAILY PO Last administered on 05/29/17 08:34; Start 05/20/17 at 09:00 Lisinopril (Prinivil) 40 mg DAILY PO Last administered on 05/29/17 08:33; Start 05/20/17 at 09:00 Divalproex Sodium (Depakote Sprinkles) 375 mg BID PO Last administered on 08:32; Start 05/20/17 at 21:00 Sertraline HCl (Zoloft) 25 mg DAILY PO Last administered on 05/22/17 08:05; Start 05/21/17 at 09:00; Stop 05/22/17 at 11:02; Status DC Sertraline HCl (Zoloft) 50 mg DAILY PO Last administered on 05/24/17 08:07; Start 05/23/17 at 09:00; Stop 05/24/17 at 18:07; Status DC Trazodone HCl (Desyrel) 50 mg PRN QHS PRN PO INSOMNIA, MAY REPEAT X1 Last administered on 05/28/17 19:41; Start 05/22/17 at 19:45 Cyanocobalamin (Vitamin B-12) 1,000 mcg DAILY PO Last administered on 08:34; Start 05/23/17 at 12:30 Prenat Multivit/ [place]/Iron/Folic Ac (Multivitamin ) 1 tab DAILY PO Last administered on 05/29/17 08:34; Start 05/23/17 at 12:30 Sertraline HCl (Zoloft) 75 mg DAILY PO Last administered on 05/29/17 08:32; Start 05/25/17 at 09:00 Mirtazapine (Remeron) 7.5 mg QHS PO Last administered on 05/28/17 19:40; Start 05/27/17 at 21:00 Active Scripts Active Reported Trazodone Hcl 50 Mg Tablet 50 Mg PO PRN QHS PRN Zoloft (Sertraline Hcl) 25 Mg Tablet 75 Mg PO DAILY Vitamins ( Vits W-Ca,Fe,Fa(<1MG)) 1 Each Tablet 1 Each PO DAILY Mirtazapine 7.5 Mg Tablet 7.5 Mg PO Analgesic [place] (Methyl Salicylate/Menthol) 28 Gm Oint...g. 1 Darrel TP PRN QID PRN Milk Of Magnesia (Magnesium Hydroxide) 2,400 Mg/10 Ml Oral.susp 2,400 Mg PO PRN QHS PRN Maalox Advanced Suspension (Mag Hydrox/Aluminum Hyd/Simeth) 355 Ml Oral.susp 15 Ml PO PRN AFTMEALHC PRN Vitamin B-12 (Cyanocobalamin (Vitamin B-12)) 1,000 Mcg Tablet 1,000 Mcg PO DAILY Polyethylene Glycol 3350 255 Gm Powder 17 Gm PO PRN DAILY PRN Tylenol (Acetaminophen) 325 Mg Tablet 650 Mg PO PRN Q6HRS PRN Lorazepam 0.5 Mg Tablet 0.25 Mg PO PRN Q6HRS PRN Furosemide 40 Mg Tablet 40 Mg PO DAILY Klor-Con M20 (Potassium Chloride) 20 Meq Tab.er.prt 40 Meq PO DAILY Lisinopril 40 Mg Tablet 40 Mg PO DAILY Vitamin D3 (Cholecalciferol (Vitamin D3)) 1,000 Unit Tablet 1,000 Unit PO DAILY Aspirin 81 Mg Tab.chew 81 Mg PO DAILY Amiodarone Hcl 200 Mg Tablet 200 Mg PO DAILY Atorvastatin Calcium 10 Mg Tablet 10 Mg PO QHS Tamsulosin Hcl 0.4 Mg Cap.er.24h 0.4 Mg PO DAILY Melatonin 3 Mg Tablet 3 Mg PO HS Senokot (Sennosides) 8.6 Mg Tablet 8.6 Mg PO DAILY Carvedilol 12.5 Mg Tablet 12.5 Mg PO BIDWMEALS Divalproex Sodium 125 Mg Cap.sprink 250 Mg PO BID Diagnosis: Problems: (1) Anxiety disorder (2) Impulse control disorder (3) Dementia, vascular, with depression (4) Dementia, vascular, with delusions (5) Dementia in Alzheimer's disease with depression (6) Dementia in Alzheimer's disease with delusions JING ROSS MD May 29, 2017 19:49
[2017-05-29] MEDS: ATORVASTATIN CALCIUM 10 MG TABLET. PO SCH (20:54)
[2017-05-29] MEDS: MELATONIN 3 MG TABLET PO SCH (20:54)
[2017-05-29] MEDS: MIRTAZAPINE 7.5 MG TABLET. PO SCH (20:54)
--- NOTE | 2017-05-29 21:40 | PN ---
DATE: 05/28/2017 PSYCHIATRIC PROGRESS NOTE This is a late entry of 05/28/2017 covers elements not covered in my initial note of 05/28/2017. SUBJECTIVE: I met with the patient evening of 05/28/2017. He slept 7-3/4 hours previous evening. He was agitated previous night per nursing report and during the day on 05/28/2017, he was pacing up and down in the hallway, but redirectable. REVIEW OF SYSTEMS: Poor vision. No CV, , pulmonary, ENT system symptoms on review. MENTAL STATUS EXAM: Oriented to himself. Insight, judgment, recent and remote memory, attention, concentration, fund of knowledge poor, consistent with his diagnosis. He is pleasant, verbal, smiling as I met with him, somewhat withdrawn, engages if staff engage him. He is cooperative with skin tears, dressings and these are healing. LABORATORY DATA: Reviewed. IMPRESSION: Unchanged from initial note. PLAN: Continue current psychotropics despite subtherapeutic level of valproic acid at 40. It seems clinically adequate for now. MAN Lucas ROSS MD DR: JERI/pedro JOB#: [id number] / [id number]
[2017-05-30] MEDS ORDERED: MAGN400O7 PO (04:47)
[2017-05-30 06:12] VITALS: BP 153/69
[2017-05-30] MEDS: CARVEDILOL 12.5 MG TABLET PO SCH (08:19)
[2017-05-30] MEDS: LISINOPRIL 20 MG TABLET PO SCH (08:19)
[2017-05-30 08:20] VITALS: BP 153/69
[2017-05-30] MEDS: SERTRALINE 50 MG TABLET. PO SCH (08:20)
[2017-05-30] MEDS: CYANOCOBALAMIN (VITAMIN B-12) 1,000 MCG TABLET. PO SCH (08:20)
[2017-05-30] MEDS: ASPIRIN 81 MG TAB.CHEW PO SCH (08:20)
[2017-05-30] MEDS: FUROSEMIDE 40 MG TABLET PO SCH (08:20)
[2017-05-30] MEDS: PRENATAL MULTIVITAMIN TABLET. PO SCH (08:20)
[2017-05-30] MEDS: AMIODARONE HCL 200 MG TABLET PO SCH (08:20)
[2017-05-30] MEDS: CHOLECALCIFEROL (VITAMIN D3) 1,000 UNIT TABLET PO SCH (08:21)
[2017-05-30] MEDS: POTASSIUM CHLORIDE 20 MEQ TABLET.ER. PO SCH (08:21)
[2017-05-30] MEDS: SENNOSIDES 8.6 MG TABLET PO SCH (08:21)
[2017-05-30] MEDS: TAMSULOSIN 0.4 MG CAP.ER.24H. PO SCH (08:21)
[2017-05-30] MEDS: DIVALPROEX 125 MG CAP.SPRINK PO SCH (08:21)
--- NOTE | 2017-05-30 22:51 | PDOC ---
Exam Willard Demential Exam: Willard Note: Please also refer to the separate dictated note~for this date of service dictated separately.~Patient seen individually. Discussed the patient with Nursing staff reviewed the chart.~Reviewed interim history and current functioning. Reviewed vital signs,~Labs/ Radiology~and current medications noted below. Continue current treatment with the changes noted in the dictated addendum note Assessment: Vital Signs: Vital Signs Date Time Temp Pulse Resp B/P (MAP) Pulse Ox O2 Delivery O2 Flow Rate FiO2 05/30/17 08:20 62 153/69 05/30/17 06:12 97.4 18 93 05/26/17 16:11 Room Air I&O Intake and Output 05/30/17 07:00 Intake Total 960 ml Balance 960 ml Intake Oral 960 ml Current Medications: Meds: Current Medications Multi-Ingredient Ointment (Analgesic [place]) 1 darrel PRN QID PRN TP MUSCLE PAIN; Start 05/19/17 at 21:45; Stop 05/30/17 at 13:02; Status DC Al Hydroxide/Mg Hydroxide (Mylanta Plus Xs) 15 ml PRN AFTMEALHC PRN PO DYSPEPSIA; Start 05/19/17 at 21:45; Stop 05/30/17 at 13:02; Status DC Magnesium Hydroxide (Milk Of Magnesia) 2,400 mg PRN QHS PRN PO CONSTIPATION; Start 05/19/17 at 21:45; Stop 05/30/17 at 13:02; Status DC Divalproex Sodium (Depakote Sprinkles) 250 mg BID PO Last administered on 08:46; Start 05/19/17 at 22:15; Stop 05/20/17 at 18:55; Status DC Lorazepam (Ativan) 0.25 mg PRN Q6HRS PRN PO ANXIETY / AGITATION Last administered on 05/27/17 01:25; Start 05/19/17 at 22:00; Stop 05/30/17 at 13:02 ; Status DC Melatonin 3 mg QHS PO Last administered on 05/29/17 20:54; Start 05/19/17 at 22:15; Stop 05/30/17 at 13:02; Status DC Acetaminophen (Tylenol) 650 mg PRN Q6HRS PRN PO PAIN / TEMP; Start 05/19/17 at 22:00; Stop 05/30/17 at 13:02; Status DC Amiodarone HCl (Cordarone) 200 mg DAILY PO Last administered on 05/30/17 08:20 ; Start 05/20/17 at 09:00; Stop 05/30/17 at 13:02; Status DC Aspirin (Children'S Aspirin) 81 mg DAILY PO Last administered on 05/30/17 08: 20; Start 05/20/17 at 09:00; Stop 05/30/17 at 13:02; Status DC Atorvastatin Calcium (Lipitor) 10 mg QHS PO Last administered on 05/29/17 20: 54; Start 05/19/17 at 22:15; Stop 05/30/17 at 13:02; Status DC Carvedilol (Coreg) 12.5 mg BIDWMEALS PO Last administered on 05/30/17 08:19; Start 05/20/17 at 08:00; Stop 05/30/17 at 13:02; Status DC Vitamin D (Vitamin D3) 1,000 unit DAILY PO Last administered on 05/30/17 08:21 ; Start 05/20/17 at 09:00; Stop 05/30/17 at 13:02; Status DC Furosemide (Lasix) 40 mg DAILY PO Last administered on 05/30/17 08:20; Start 05/20/17 at 09:00; Stop 05/30/17 at 13:02; Status DC Polyethylene Glycol (miraLAX) 17 gm PRN DAILY PRN PO CONSTIPATION; Start at 22:15; Stop 05/30/17 at 13:02; Status DC Potassium Chloride (Klor-Con) 40 meq DAILY PO Last administered on 05/30/17 08 :21; Start 05/20/17 at 09:00; Stop 05/30/17 at 13:02; Status DC Sennosides (Senna) 8.6 mg DAILY PO Last administered on 05/30/17 08:21; Start 05/20/17 at 09:00; Stop 05/30/17 at 13:02; Status DC Tamsulosin HCl (Flomax) 0.4 mg DAILY PO Last administered on 05/30/17 08:21; Start 05/20/17 at 09:00; Stop 05/30/17 at 13:02; Status DC Lisinopril (Prinivil) 40 mg DAILY PO Last administered on 05/30/17 08:19; Start 05/20/17 at 09:00; Stop 05/30/17 at 13:02; Status DC Divalproex Sodium (Depakote Sprinkles) 375 mg BID PO Last administered on 08:21; Start 05/20/17 at 21:00; Stop 05/30/17 at 13:02; Status DC Sertraline HCl (Zoloft) 25 mg DAILY PO Last administered on 05/22/17 08:05; Start 05/21/17 at 09:00; Stop 05/22/17 at 11:02; Status DC Sertraline HCl (Zoloft) 50 mg DAILY PO Last administered on 05/24/17 08:07; Start 05/23/17 at 09:00; Stop 05/24/17 at 18:07; Status DC Trazodone HCl (Desyrel) 50 mg PRN QHS PRN PO INSOMNIA, MAY REPEAT X1 Last administered on 05/28/17 19:41; Start 05/22/17 at 19:45; Stop 05/30/17 at 13:02 ; Status DC Cyanocobalamin (Vitamin B-12) 1,000 mcg DAILY PO Last administered on 08:20; Start 05/23/17 at 12:30; Stop 05/30/17 at 13:02; Status DC Prenat Multivit/ [place]/Iron/Folic Ac (Multivitamin ) 1 tab DAILY PO Last administered on 05/30/17 08:20; Start 05/23/17 at 12:30; Stop 05/30/17 at 13:02; Status DC Sertraline HCl (Zoloft) 75 mg DAILY PO Last administered on 05/30/17 08:20; Start 05/25/17 at 09:00; Stop 05/30/17 at 13:02; Status DC Mirtazapine (Remeron) 7.5 mg QHS PO Last administered on 05/29/17 20:54; Start 05/27/17 at 21:00; Stop 05/30/17 at 13:02; Status DC Active Scripts Active Reported Milk Of Magnesia (Magnesium Hydroxide) 400 Mg/5 Ml Oral.susp 2,400 Mg PO PRN QHS PRN Trazodone Hcl 50 Mg Tablet 50 Mg PO PRN QHS PRN Zoloft (Sertraline Hcl) 25 Mg Tablet 75 Mg PO DAILY Vitamins ( Vits W-Ca,Fe,Fa(<1MG)) 1 Each Tablet 1 Tab PO DAILY Mirtazapine 7.5 Mg Tablet 7.5 Mg PO QHS Analgesic [place] (Methyl Salicylate/Menthol) 28 Gm Oint...g. 1 Darrel TP PRN QID PRN Maalox Advanced Suspension (Mag Hydrox/Aluminum Hyd/Simeth) 355 Ml Oral.susp 15 Ml PO PRN AFTMEALHC PRN Vitamin B-12 (Cyanocobalamin (Vitamin B-12)) 1,000 Mcg Tablet 1,000 Mcg PO DAILY Polyethylene Glycol 3350 255 Gm Powder 17 Gm PO PRN DAILY PRN Tylenol (Acetaminophen) 325 Mg Tablet 650 Mg PO PRN Q6HRS PRN Lorazepam 0.5 Mg Tablet 0.25 Mg PO PRN Q6HRS PRN Furosemide 40 Mg Tablet 40 Mg PO DAILY Klor-Con M20 (Potassium Chloride) 20 Meq Tab.er.prt 40 Meq PO DAILY Lisinopril 40 Mg Tablet 40 Mg PO DAILY Vitamin D3 (Cholecalciferol (Vitamin D3)) 1,000 Unit Tablet 1,000 Unit PO DAILY Aspirin 81 Mg Tab.chew 81 Mg PO DAILY Amiodarone Hcl 200 Mg Tablet 200 Mg PO DAILY Atorvastatin Calcium 10 Mg Tablet 10 Mg PO QHS Tamsulosin Hcl 0.4 Mg Cap.er.24h 0.4 Mg PO DAILY Melatonin 3 Mg Tablet 3 Mg PO HS Senokot (Sennosides) 8.6 Mg Tablet 8.6 Mg PO DAILY Carvedilol 12.5 Mg Tablet 12.5 Mg PO BIDWMEALS Divalproex Sodium 125 Mg Cap.sprink 375 Mg PO BID Diagnosis: Problems: (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
--- NOTE | 2017-05-31 01:01 | PN ---
DATE: 05/29/2017 PSYCHIATRIC PROGRESS NOTE This late entry of 05/29/2017 covers elements not covered in my initial note of 05/29/2017. I met with the patient in the evening of 05/29/2017. Per nursing report, the patient has been disorganized looking for , put himself on the floor in the hallway, but redirected. REVIEW OF SYSTEMS: Poor vision. No CV, , pulmonary, eye, ENT system symptoms on review. Reliability poor. MENTAL STATUS EXAM: Oriented to himself. Insight, judgment, recent and remote memory, attention, concentration, fund of knowledge poor, consistent with his diagnosis mentioned in my initial note. LABORATORY DATA: Reviewed. PLAN: Continue current psychotropics. Valproic acid level is subtherapeutic at 40, but given his age and clinical condition, it is adequate for now, may readjust depending on his progress. JING ROSS MD DR: JERI/pedro JOB#: [id number] / [id number]
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
== END 2017-05-30 12:57 | disposition home or self-care (01) | DRG 884 ==
LOC: ER 19:33 → GEROPSY 21:25
PROVIDERS: ADMIT Psychiatry & Neurology Psychiatry; ATTEND Psychiatry & Neurology Psychiatry
DX: F01.51 Vascular dementia, unspecified severity, with behavioral disturbance (principal); F02.81 Dementia in other diseases classified elsewhere, unspecified severity, with behavioral disturbance; I13.0 Hypertensive heart and chronic kidney disease with heart failure and stage 1 through stage 4 chronic kidney disease, or unspecified chronic kidney disease; F22 Delusional disorders; F41.9 Anxiety disorder, unspecified; F63.9 Impulse disorder, unspecified; F32.9 Major depressive disorder, single episode, unspecified; E78.5 Hyperlipidemia, unspecified; G30.9 Alzheimer's disease, unspecified; I25.5 Ischemic cardiomyopathy; I50.9 Heart failure, unspecified; J44.9 Chronic obstructive pulmonary disease, unspecified; K59.09 Other constipation; N40.0 Benign prostatic hyperplasia without lower urinary tract symptoms; D69.6 Thrombocytopenia, unspecified; H54.8 Legal blindness, as defined in USA; E78.00 Pure hypercholesterolemia, unspecified; N18.2 Chronic kidney disease, stage 2 (mild); Z66 Do not resuscitate; Z95.1 Presence of aortocoronary bypass graft; Z95.810 Presence of automatic (implantable) cardiac defibrillator; Z88.0 Allergy status to penicillin; Z88.8 Allergy status to other drugs, medicaments and biological substances
CPT/HCPCS: 36415; 71010; 80053; 80061; 80164; 81001; 82306; 82607; 83036; 83540; 83550; 83735; 84436; 84443; 84480; 85027; 86592; 86593; 93005; 99285-25

== ENCOUNTER 2017-09-05 13:37 | Inpatient (IN) | payer MEDICARE ==
[~2017-09-05] VITALS: Ht 177.8 cm; Wt 72.1 kg
[~2017-09-05 13:37] MED LIST: ACET325T9 PO; AMIO200T2 PO; ASPI-630 PO; ATOR10TA60 PO; CARV12.52 PO; CHOL10003 PO; CYAN10005 PO; DIVA125C3 PO; FURO40TA4 PO; LISI40TA PO; LORA0.5T PO; MAG355OR11 PO; MAGN2400 PO; MAGN400O7 PO; MELA3TAB2 PO; METH29OI TP; MIRT7.5T8 PO; POLY255P PO; POTA20TA4 PO; PREN1TAB58 PO; SENN8.6T99 PO; SERT25TA PO; TAMS0.4C2 PO; TRAZ50TA15 PO
[2017-09-05] MEDS ORDERED: MAGNESIUM HYDROXIDE 2,400 MG/30 ML ORAL.SUSP. PO PRN ×2 (14:00→15:00)
[2017-09-05] MEDS ORDERED: MAG HYDROX/AL HYDROX/SIMETH 30 ML ORAL.SUSP PO PRN ×2 (14:00→15:45)
[2017-09-05] MEDS ORDERED: METHYL SALICYLATE/MENTHOL TOPICAL OINTMENT 29GM TUBE. TP PRN ×2 (14:00→15:00)
[2017-09-05] MEDS ORDERED: ACETAMINOPHEN 325 MG TABLET PO PRN ×2 (14:00→15:00)
[2017-09-05 14:30] LABS: BASO % 1 % (0-3); EOS # 0.2 x10^3/uL (0.0-0.7); EOS % 3 % (0-3); HEMATOCRIT 33.9 % (39.0-53.0); HEMOGLOBIN 11.6 g/dL (13.0-17.5); LYMPH # 1.4 x10^3/uL (1.0-4.8); LYMPH % 20 % (24-48); MEAN CORPUSCULAR HEMOGLOBIN 37 pg (25-35); MEAN CORPUSCULAR HGB CONC 34 g/dL (31-37); MEAN CORPUSCULAR VOLUME 107 fL (79-100); MONO # 0.5 x10^3/uL (0.0-1.1); MONO % 8 % (0-9); NEUT # 4.8 x10^3uL (1.8-7.7); NEUT % 69 % (31-73); PLATELET COUNT 133 x10^3/uL (140-400); RED BLOOD COUNT 3.18 x10^6/uL (4.30-5.70); WHITE BLOOD COUNT 6.9 x10^3/uL (4.0-11.0)
[2017-09-05 14:43] LABS: ALBUMIN/GLOBULIN RATIO 0.7 (1.0-1.7); CALCIUM 8.6 mg/dL (8.5-10.1); CREATININE 1.4 mg/dL (0.7-1.3); GFR 48.4; MAGNESIUM 2.2 mg/dL (1.8-2.4); POTASSIUM 4.6 mmol/L (3.5-5.1); TOTAL BILIRUBIN 0.5 mg/dL (0.2-1.0); TOTAL PROTEIN 7.3 g/dL (6.4-8.2)
[2017-09-05] MEDS ORDERED: HALO100A2 IM (14:48)
[2017-09-05] MEDS ORDERED: CHOL10003 PO (14:48)
[2017-09-05] MEDS ORDERED: RISP0.5T24 PO (14:48)
[2017-09-05] MEDS ORDERED: ASCO500T3 PO (14:48)
[2017-09-05] MEDS ORDERED: risperiDONE 0.5 MG TABLET. PO PRN (15:00)
[2017-09-05] MEDS ORDERED: LORazepam 0.5 MG TABLET PO PRN (15:00)
[2017-09-05 16:07] VITALS: BP 122/86
[2017-09-05] MEDS: CARVEDILOL 12.5 MG TABLET PO SCH (17:40)
--- NOTE | 2017-09-05 18:44 | PDOC ---
Exam Willard Demential Exam: Willard Note: Please also refer to the separate dictated note~for this date of service dictated separately.~Patient seen individually. Discussed the patient with Nursing staff reviewed the chart.~Reviewed interim history and current functioning. Reviewed vital signs,~Labs/ Radiology~and current medications noted below. Continue current treatment with the changes noted in the dictated addendum note Assessment: Vital Signs: Vital Signs Date Time Temp Pulse Resp B/P (MAP) Pulse Ox O2 Delivery O2 Flow Rate FiO2 09/05/17 17:40 62 122/86 09/05/17 16:07 97.3 18 94 I&O Intake and Output 09/06/17 06:59 Intake Total 0 ml Balance 0 ml Intake Oral 0 ml Labs: Laboratory Tests Test 09/05/17 14:20 White Blood Count 6.9 x10^3/uL (4.0-11.0) Red Blood Count 3.18 x10^6/uL (4.30-5.70) L Hemoglobin 11.6 g/dL (13.0-17.5) L Hematocrit 33.9 % (39.0-53.0) L Mean Corpuscular Volume 107 fL (79-100) H Mean Corpuscular Hemoglobin 37 pg (25-35) H Mean Corpuscular Hemoglobin Concent 34 g/dL (31-37) Red Cell Distribution Width 15.0 % (11.5-14.5) H Platelet Count 133 x10^3/uL (140-400) L Neutrophils (%) (Auto) 69 % (31-73) Lymphocytes (%) (Auto) 20 % (24-48) L Monocytes (%) (Auto) 8 % (0-9) Eosinophils (%) (Auto) 3 % (0-3) Basophils (%) (Auto) 1 % (0-3) Neutrophils # (Auto) 4.8 x10^3uL (1.8-7.7) Lymphocytes # (Auto) 1.4 x10^3/uL (1.0-4.8) Monocytes # (Auto) 0.5 x10^3/uL (0.0-1.1) Eosinophils # (Auto) 0.2 x10^3/uL (0.0-0.7) Basophils # (Auto) 0.0 x10^3/uL (0.0-0.2) Sodium Level 143 mmol/L (136-145) Potassium Level 4.6 mmol/L (3.5-5.1) Chloride Level 109 mmol/L (98-107) H Carbon Dioxide Level 27 mmol/L (21-32) Anion Gap 7 (6-14) Blood Urea Nitrogen 27 mg/dL (8-26) H Creatinine 1.4 mg/dL (0.7-1.3) H Estimated GFR (Cockcroft-Gault) 48.4 BUN/Creatinine Ratio 19 (6-20) Glucose Level 87 mg/dL (70-99) Calcium Level 8.6 mg/dL (8.5-10.1) Magnesium Level 2.2 mg/dL (1.8-2.4) Total Bilirubin 0.5 mg/dL (0.2-1.0) Aspartate Amino Transferase (AST) 17 U/L (15-37) Alanine Aminotransferase (ALT) 17 U/L (16-63) Alkaline Phosphatase 92 U/L (46-116) Total Protein 7.3 g/dL (6.4-8.2) Albumin 3.0 g/dL (3.4-5.0) L Albumin/Globulin Ratio 0.7 (1.0-1.7) L Current Medications: Meds: Current Medications Acetaminophen (Tylenol) 650 mg PRN Q6HRS PRN PO PAIN / TEMP; Start 09/05/17 at 14:00 Multi-Ingredient Ointment (Analgesic [place]) 1 darrel PRN QID PRN TP MUSCLE PAIN; Start 09/05/17 at 14:00 Al Hydroxide/Mg Hydroxide (Mylanta Plus Xs) 15 ml PRN AFTMEALHC PRN PO DYSPEPSIA; Start 09/05/17 at 14:00 Magnesium Hydroxide (Milk Of Magnesia) 2,400 mg PRN QHS PRN PO CONSTIPATION; Start 09/05/17 at 14:00 Acetaminophen (Tylenol) 650 mg PRN Q6HRS PRN PO PAIN / TEMP; Start 09/05/17 at 15:00; Status Cancel Amiodarone HCl (Cordarone) 200 mg DAILY PO ; Start 09/06/17 at 09:00 Ascorbic Acid (Vitamin C) 500 mg DAILY PO ; Start 09/06/17 at 09:00 Aspirin (Children'S Aspirin) 81 mg DAILY PO ; Start 09/06/17 at 09:00 Atorvastatin Calcium (Lipitor) 10 mg QHS PO ; Start 09/05/17 at 21:00 Carvedilol (Coreg) 12.5 mg BIDWMEALS PO Last administered on 09/05/17t 17:40; Start 09/05/17 at 17:00 Vitamin D (Vitamin D3) 1,000 unit DAILY PO ; Start 09/06/17 at 09:00 Cyanocobalamin (Vitamin B-12) 1,000 mcg DAILY PO ; Start 09/06/17 at 09:00 Divalproex Sodium (Depakote Sprinkles) 375 mg BID PO ; Start 09/05/17 at 21:00 Furosemide (Lasix) 40 mg DAILY PO ; Start 09/06/17 at 09:00 Lorazepam (Ativan) 0.25 mg PRN Q6HRS PRN PO ANXIETY / AGITATION; Start at 15:00 Magnesium Hydroxide (Milk Of Magnesia) 2,400 mg PRN QHS PRN PO CONSTIPATION; Start 09/05/17 at 15:00; Status Cancel Multi-Ingredient Ointment (Analgesic [place]) 1 darrel PRN QID PRN TP MUSCLE PAIN; Start 09/05/17 at 15:00; Status Cancel Mirtazapine (Remeron) 15 mg QHS PO ; Start 09/05/17 at 21:00 Polyethylene Glycol (miraLAX) 17 gm PRN DAILY PRN PO CONSTIPATION; Start at 09:00 Potassium Chloride (Klor-Con) 40 meq DAILY PO ; Start 09/06/17 at 09:00 Risperidone (RisperDAL) 0.5 mg PRN Q6HRS PRN PO AGITATION; Start 09/05/17 at 15 :00 Sennosides (Senna) 8.6 mg DAILY PO ; Start 09/06/17 at 09:00 Sertraline HCl (Zoloft) 25 mg DAILY PO ; Start 09/06/17 at 09:00 Tamsulosin HCl (Flomax) 0.4 mg DAILY PO ; Start 09/06/17 at 09:00 Lisinopril (Prinivil) 20 mg DAILY PO ; Start 09/06/17 at 09:00 Al Hydroxide/Mg Hydroxide (Mylanta Plus Xs) 15 ml PRN AFTMEALHC PRN PO DYSPEPSIA; Start 09/05/17 at 15:45; Status Cancel Melatonin 3 mg QHS PO ; Start 09/05/17 at 21:00 Prenat Multivit/ [place]/Iron/Folic Ac (Multivitamin ) 1 tab DAILY PO ; Start 09/06/17 at 09:00 Olanzapine (ZyPREXA ZYDIS) 2.5 mg PRN Q2HR PRN PO AGITATION Last administered on 09/05/17t 17:40; Start 09/05/17 at 17:30 Active Scripts Active Reported Risperdal (Risperidone) 0.5 Mg Tablet 0.5 Mg PO PRN Q6HRS PRN Ascorbic Acid 500 Mg Tablet 500 Mg PO DAILY Milk Of Magnesia (Magnesium Hydroxide) 400 Mg/5 Ml Oral.susp 2,400 Mg PO PRN QHS PRN Zoloft (Sertraline Hcl) 25 Mg Tablet 25 Mg PO DAILY Vitamins ( Vits W-Ca,Fe,Fa(<1MG)) 1 Each Tablet 1 Tab PO DAILY Mirtazapine 7.5 Mg Tablet 15 Mg PO QHS Analgesic [place] (Methyl Salicylate/Menthol) 28 Gm Oint...g. 1 Darrel TP PRN QID PRN Maalox Advanced Suspension (Mag Hydrox/Aluminum Hyd/Simeth) 355 Ml Oral.susp 15 Ml PO PRN AFTMEALHC PRN Vitamin B-12 (Cyanocobalamin (Vitamin B-12)) 1,000 Mcg Tablet 1,000 Mcg PO DAILY Polyethylene Glycol 3350 255 Gm Powder 17 Gm PO PRN DAILY PRN Tylenol (Acetaminophen) 325 Mg Tablet 650 Mg PO PRN Q6HRS PRN Lorazepam 0.5 Mg Tablet 0.25 Mg PO PRN Q6HRS PRN Furosemide 40 Mg Tablet 40 Mg PO DAILY Klor-Con M20 (Potassium Chloride) 20 Meq Tab.er.prt 40 Meq PO DAILY Lisinopril 40 Mg Tablet 20 Mg PO DAILY Vitamin D3 (Cholecalciferol (Vitamin D3)) 1,000 Unit Tablet 1,000 Unit PO DAILY Aspirin 81 Mg Tab.chew 81 Mg PO DAILY Amiodarone Hcl 200 Mg Tablet 200 Mg PO DAILY Atorvastatin Calcium 10 Mg Tablet 10 Mg PO QHS Tamsulosin Hcl 0.4 Mg Cap.er.24h 0.4 Mg PO DAILY Melatonin 3 Mg Tablet 3 Mg PO HS Senokot (Sennosides) 8.6 Mg Tablet 8.6 Mg PO DAILY Carvedilol 12.5 Mg Tablet 12.5 Mg PO BIDWMEALS Divalproex Sodium 125 Mg Cap.sprink 375 Mg PO BID Diagnosis: Problems: (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
--- NOTE | 2017-09-05 20:11 | PDOC ---
Exam Willard Demential Exam: Willard Note: Please also refer to the separate dictated note~for this date of service dictated separately.~Patient seen individually. Discussed the patient with Nursing staff reviewed the chart.~Reviewed interim history and current functioning. Reviewed vital signs,~Labs/ Radiology~and current medications noted below. Continue current treatment with the changes noted in the dictated addendum note Assessment: Vital Signs: Vital Signs Date Time Temp Pulse Resp B/P (MAP) Pulse Ox O2 Delivery O2 Flow Rate FiO2 09/05/17 17:40 62 122/86 09/05/17 16:07 97.3 18 94 I&O Intake and Output 09/06/17 07:00 Intake Total 0 ml Balance 0 ml Intake Oral 0 ml Labs: Laboratory Tests Test 09/05/17 14:20 White Blood Count 6.9 x10^3/uL (4.0-11.0) Red Blood Count 3.18 x10^6/uL (4.30-5.70) L Hemoglobin 11.6 g/dL (13.0-17.5) L Hematocrit 33.9 % (39.0-53.0) L Mean Corpuscular Volume 107 fL (79-100) H Mean Corpuscular Hemoglobin 37 pg (25-35) H Mean Corpuscular Hemoglobin Concent 34 g/dL (31-37) Red Cell Distribution Width 15.0 % (11.5-14.5) H Platelet Count 133 x10^3/uL (140-400) L Neutrophils (%) (Auto) 69 % (31-73) Lymphocytes (%) (Auto) 20 % (24-48) L Monocytes (%) (Auto) 8 % (0-9) Eosinophils (%) (Auto) 3 % (0-3) Basophils (%) (Auto) 1 % (0-3) Neutrophils # (Auto) 4.8 x10^3uL (1.8-7.7) Lymphocytes # (Auto) 1.4 x10^3/uL (1.0-4.8) Monocytes # (Auto) 0.5 x10^3/uL (0.0-1.1) Eosinophils # (Auto) 0.2 x10^3/uL (0.0-0.7) Basophils # (Auto) 0.0 x10^3/uL (0.0-0.2) Sodium Level 143 mmol/L (136-145) Potassium Level 4.6 mmol/L (3.5-5.1) Chloride Level 109 mmol/L (98-107) H Carbon Dioxide Level 27 mmol/L (21-32) Anion Gap 7 (6-14) Blood Urea Nitrogen 27 mg/dL (8-26) H Creatinine 1.4 mg/dL (0.7-1.3) H Estimated GFR (Cockcroft-Gault) 48.4 BUN/Creatinine Ratio 19 (6-20) Glucose Level 87 mg/dL (70-99) Calcium Level 8.6 mg/dL (8.5-10.1) Magnesium Level 2.2 mg/dL (1.8-2.4) Total Bilirubin 0.5 mg/dL (0.2-1.0) Aspartate Amino Transferase (AST) 17 U/L (15-37) Alanine Aminotransferase (ALT) 17 U/L (16-63) Alkaline Phosphatase 92 U/L (46-116) Total Protein 7.3 g/dL (6.4-8.2) Albumin 3.0 g/dL (3.4-5.0) L Albumin/Globulin Ratio 0.7 (1.0-1.7) L Current Medications: Meds: Current Medications Acetaminophen (Tylenol) 650 mg PRN Q6HRS PRN PO PAIN / TEMP; Start 09/05/17 at 14:00 Multi-Ingredient Ointment (Analgesic Arnold) 1 darrel PRN QID PRN TP MUSCLE PAIN; Start 09/05/17 at 14:00 Al Hydroxide/Mg Hydroxide (Mylanta Plus Xs) 15 ml PRN AFTMEALHC PRN PO DYSPEPSIA; Start 09/05/17 at 14:00 Magnesium Hydroxide (Milk Of Magnesia) 2,400 mg PRN QHS PRN PO CONSTIPATION; Start 09/05/17 at 14:00 Acetaminophen (Tylenol) 650 mg PRN Q6HRS PRN PO PAIN / TEMP; Start 09/05/17 at 15:00; Status Cancel Amiodarone HCl (Cordarone) 200 mg DAILY PO ; Start 09/06/17 at 09:00 Ascorbic Acid (Vitamin C) 500 mg DAILY PO ; Start 09/06/17 at 09:00 Aspirin (Children'S Aspirin) 81 mg DAILY PO ; Start 09/06/17 at 09:00 Atorvastatin Calcium (Lipitor) 10 mg QHS PO ; Start 09/05/17 at 21:00 Carvedilol (Coreg) 12.5 mg BIDWMEALS PO Last administered on 09/05/17t 17:40; Start 09/05/17 at 17:00 Vitamin D (Vitamin D3) 1,000 unit DAILY PO ; Start 09/06/17 at 09:00 Cyanocobalamin (Vitamin B-12) 1,000 mcg DAILY PO ; Start 09/06/17 at 09:00 Divalproex Sodium (Depakote Sprinkles) 375 mg BID PO ; Start 09/05/17 at 21:00 Furosemide (Lasix) 40 mg DAILY PO ; Start 09/06/17 at 09:00 Lorazepam (Ativan) 0.25 mg PRN Q6HRS PRN PO ANXIETY / AGITATION; Start at 15:00 Magnesium Hydroxide (Milk Of Magnesia) 2,400 mg PRN QHS PRN PO CONSTIPATION; Start 09/05/17 at 15:00; Status Cancel Multi-Ingredient Ointment (Analgesic Arnold) 1 darrel PRN QID PRN TP MUSCLE PAIN; Start 09/05/17 at 15:00; Status Cancel Mirtazapine (Remeron) 15 mg QHS PO ; Start 09/05/17 at 21:00 Polyethylene Glycol (miraLAX) 17 gm PRN DAILY PRN PO CONSTIPATION; Start at 09:00 Potassium Chloride (Klor-Con) 40 meq DAILY PO ; Start 09/06/17 at 09:00 Risperidone (RisperDAL) 0.5 mg PRN Q6HRS PRN PO AGITATION; Start 09/05/17 at 15 :00 Sennosides (Senna) 8.6 mg DAILY PO ; Start 09/06/17 at 09:00 Sertraline HCl (Zoloft) 25 mg DAILY PO ; Start 09/06/17 at 09:00 Tamsulosin HCl (Flomax) 0.4 mg DAILY PO ; Start 09/06/17 at 09:00 Lisinopril (Prinivil) 20 mg DAILY PO ; Start 09/06/17 at 09:00 Al Hydroxide/Mg Hydroxide (Mylanta Plus Xs) 15 ml PRN AFTMEALHC PRN PO DYSPEPSIA; Start 09/05/17 at 15:45; Status Cancel Melatonin 3 mg QHS PO ; Start 09/05/17 at 21:00 Prenat Multivit/ [place]/Iron/Folic Ac (Multivitamin ) 1 tab DAILY PO ; Start 09/06/17 at 09:00 Olanzapine (ZyPREXA ZYDIS) 2.5 mg PRN Q2HR PRN PO AGITATION Last administered on 09/05/17t 17:40; Start 09/05/17 at 17:30 Active Scripts Active Reported Risperdal (Risperidone) 0.5 Mg Tablet 0.5 Mg PO PRN Q6HRS PRN Ascorbic Acid 500 Mg Tablet 500 Mg PO DAILY Milk Of Magnesia (Magnesium Hydroxide) 400 Mg/5 Ml Oral.susp 2,400 Mg PO PRN QHS PRN Zoloft (Sertraline Hcl) 25 Mg Tablet 25 Mg PO DAILY Vitamins ( Vits W-Ca,Fe,Fa(<1MG)) 1 Each Tablet 1 Tab PO DAILY Mirtazapine 7.5 Mg Tablet 15 Mg PO QHS Analgesic Arnold (Methyl Salicylate/Menthol) 28 Gm Oint...g. 1 Darrel TP PRN QID PRN Maalox Advanced Suspension (Mag Hydrox/Aluminum Hyd/Simeth) 355 Ml Oral.susp 15 Ml PO PRN AFTMEALHC PRN Vitamin B-12 (Cyanocobalamin (Vitamin B-12)) 1,000 Mcg Tablet 1,000 Mcg PO DAILY Polyethylene Glycol 3350 255 Gm Powder 17 Gm PO PRN DAILY PRN Tylenol (Acetaminophen) 325 Mg Tablet 650 Mg PO PRN Q6HRS PRN Lorazepam 0.5 Mg Tablet 0.25 Mg PO PRN Q6HRS PRN Furosemide 40 Mg Tablet 40 Mg PO DAILY Klor-Con M20 (Potassium Chloride) 20 Meq Tab.er.prt 40 Meq PO DAILY Lisinopril 40 Mg Tablet 20 Mg PO DAILY Vitamin D3 (Cholecalciferol (Vitamin D3)) 1,000 Unit Tablet 1,000 Unit PO DAILY Aspirin 81 Mg Tab.chew 81 Mg PO DAILY Amiodarone Hcl 200 Mg Tablet 200 Mg PO DAILY Atorvastatin Calcium 10 Mg Tablet 10 Mg PO QHS Tamsulosin Hcl 0.4 Mg Cap.er.24h 0.4 Mg PO DAILY Melatonin 3 Mg Tablet 3 Mg PO HS Senokot (Sennosides) 8.6 Mg Tablet 8.6 Mg PO DAILY Carvedilol 12.5 Mg Tablet 12.5 Mg PO BIDWMEALS Divalproex Sodium 125 Mg Cap.sprink 375 Mg PO BID Diagnosis: Problems: (1) Dementia with behavioral disturbance (2) Anxiety disorder (3) Impulse control disorder (4) Dementia, vascular, with depression (5) Dementia, vascular, with delusions (6) Dementia in Alzheimer's disease with depression (7) Dementia in Alzheimer's disease with delusions JING ROSS MD Sep 05, 2017 20:11
[2017-09-05] MEDS: DIVALPROEX 125 MG CAP.SPRINK PO SCH (20:26)
[2017-09-05] MEDS: ATORVASTATIN CALCIUM 10 MG TABLET. PO SCH (20:27)
[2017-09-05] MEDS: MELATONIN 3 MG TABLET PO SCH (20:33)
[2017-09-05] MEDS: MIRTAZAPINE 15 MG TABLET PO SCH (20:33)
[2017-09-06 04:09] LABS: HEMOGLOBIN A1C 4.8 % (4.8-5.6)
[2017-09-06 05:08] LABS: T3 TOTAL 62 ng/dL (71-180); THYROXINE 7.9 ug/dL (4.5-12.0)
[2017-09-06 06:58] VITALS: BP 102/70
[2017-09-06] MEDS: CARVEDILOL 12.5 MG TABLET PO SCH (08:00)
[2017-09-06] MEDS: FUROSEMIDE 40 MG TABLET PO SCH (09:00)
[2017-09-06] MEDS ORDERED: SERTRALINE 25 MG TABLET. PO SCH (09:00)
[2017-09-06] MEDS: AMIODARONE HCL 200 MG TABLET PO SCH ×2 (09:00→10:27)
[2017-09-06] MEDS ORDERED: POLYETHYLENE GLYCOL 3350 17 GM PACKET. PO PRN (09:00)
[2017-09-06] MEDS ORDERED: LISINOPRIL 20 MG TABLET PO SCH (09:00)
--- NOTE | 2017-09-06 09:13 | RAD ---
EXAM: CT head without contrast. HISTORY: Fall. TECHNIQUE: Computed tomography of the head was performed without intravenous contrast. COMPARISON: None. FINDINGS: There is no intracranial hemorrhage. Hypoattenuation within the periventricular white matter indicates moderate chronic small vessel ischemic change. Prominence of the lateral ventricles and hemispheric sulci indicate moderate atrophy. 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 The temporal bones are unremarkable. The calvarium reveals no suspicious lesions. IMPRESSION: 1. No acute intracranial findings. 2. Moderate atrophy and chronic small vessel ischemic white matter change. *One or more of the following individualized dose reduction techniques were utilized for this examination: 1. Automated exposure control. 2. Adjustment of the mA and/or kV according to patient size. 3. Use of iterative reconstruction technique.
--- NOTE | 2017-09-06 09:42 | RAD ---
EXAM: Frontal pelvis with 2V left hip. HISTORY: Fall with left hip pain. COMPARISON: None. FINDINGS: No fractures are identified. Sclerosis about both femoral heads suggests avascular microcyst as joint space narrowing is relatively mild and this is not clearly explained by osteoarthritis. There is no subchondral fracture line or collapse. Femoral head/neck offset is moderately decreased superolaterally bilaterally. There are moderate to severe degenerative changes of the lower lumbar spine with a mild dextroscoliosis, partially visualized. There are diffuse atherosclerotic calcifications. Changes of endoluminal repair of an abdominal aortic aneurysm with a bifurcated aortoiliac stent graft is noted. Embolization coils project in the left pelvis. IMPRESSION: 1. No fracture. 2. 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 3. 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
[2017-09-06 10:24] VITALS: BP 117/72
[2017-09-06] MEDS: CHOLECALCIFEROL (VITAMIN D3) 1,000 UNIT TABLET PO SCH (10:25)
[2017-09-06] MEDS: TAMSULOSIN 0.4 MG CAP.ER.24H. PO SCH (10:25)
[2017-09-06] MEDS: SENNOSIDES 8.6 MG TABLET PO SCH (10:26)
[2017-09-06] MEDS: DIVALPROEX 125 MG CAP.SPRINK PO SCH ×2 (10:26→20:42)
[2017-09-06] MEDS: CYANOCOBALAMIN (VITAMIN B-12) 1,000 MCG TABLET. PO SCH (10:26)
[2017-09-06] MEDS: ASPIRIN 81 MG TAB.CHEW PO SCH (10:26)
[2017-09-06] MEDS: ASCORBIC ACID 500 MG TABLET PO SCH (10:26)
[2017-09-06] MEDS: PRENATAL MULTIVITAMIN TABLET. PO SCH (10:26)
[2017-09-06] MEDS: POTASSIUM CHLORIDE 20 MEQ TABLET.ER. PO SCH (10:34)
[2017-09-06] MEDS: CARVEDILOL 6.25 MG TABLET PO SCH (14:13)
[2017-09-06 14:30] LABS: THYROID STIM HORMONE (TSH) 3.033 uIU/mL (0.358-3.740)
[2017-09-06 14:49] LABS: BACTERIA,URINE FEW /HPF (0-FEW); BILIRUBIN,URINE NEG (NEG); CLARITY,URINE HAZY; COLOR,URINE AMBER; GLUCOSE,URINE NEG (NEG); NITRITE,URINE NEG (NEG); SQUAMOUS EPITHELIAL CELL,UR FEW /LPF; UROBILINOGEN,URINE 2 mg/dL (0.2 mg/dL)
[2017-09-06 14:50] LABS: HYALINE CASTS, URINE OCC /HPF
[2017-09-06 16:46] VITALS: BP 121/74
[2017-09-06] MEDS: MELATONIN 3 MG TABLET PO SCH (20:42)
[2017-09-06] MEDS: ATORVASTATIN CALCIUM 10 MG TABLET. PO SCH (20:42)
[2017-09-06] MEDS: MIRTAZAPINE 15 MG TABLET PO SCH (20:42)
--- NOTE | 2017-09-06 21:52 | PDOC ---
Exam Willard Demential Exam: Willard Note: Please also refer to the separate dictated note~for this date of service dictated separately.~Patient seen individually. Discussed the patient with Nursing staff reviewed the chart.~Reviewed interim history and current functioning. Reviewed vital signs,~Labs/ Radiology~and current medications noted below. Continue current treatment with the changes noted in the dictated addendum note Assessment: Vital Signs: Vital Signs Date Time Temp Pulse Resp B/P (MAP) Pulse Ox O2 Delivery O2 Flow Rate FiO2 09/06/17 16:46 97.2 60 18 121/74 (90) 98 I&O Intake and Output 09/07/17 07:00 Intake Total 720 ml Balance 720 ml Intake Oral 720 ml Labs: Laboratory Tests Test 09/06/17 14:30 Urine Collection Type Unknown Urine Color [place] Urine Clarity Hazy Urine pH 6.5 Urine Specific [place] 1.020 Urine Protein Neg (NEG-TRACE) Urine Glucose (UA) Neg mg/dL (NEG) Urine Ketones (Stick) Neg mg/dL (NEG) Urine Blood Neg (NEG) Urine Nitrite Neg (NEG) Urine Bilirubin Neg (NEG) Urine Urobilinogen Dipstick 2 mg/dL (0.2 mg/dL) Urine Leukocyte Esterase Neg (NEG) Urine RBC 1-2 /HPF (0-2) Urine WBC 1-4 /HPF (0-4) Urine Squamous Epithelial Cells Few /LPF Urine Bacteria Few /HPF (0-FEW) Urine Hyaline Casts Occ /HPF Urine Mucus Mod /LPF Current Medications: Meds: Current Medications Acetaminophen (Tylenol) 650 mg PRN Q6HRS PRN PO PAIN / TEMP; Start 09/05/17 at 14:00 Multi-Ingredient Ointment (Analgesic [place]) 1 darrel PRN QID PRN TP MUSCLE PAIN; Start 09/05/17 at 14:00 Al Hydroxide/Mg Hydroxide (Mylanta Plus Xs) 15 ml PRN AFTMEALHC PRN PO DYSPEPSIA; Start 09/05/17 at 14:00 Magnesium Hydroxide (Milk Of Magnesia) 2,400 mg PRN QHS PRN PO CONSTIPATION; Start 09/05/17 at 14:00 Acetaminophen (Tylenol) 650 mg PRN Q6HRS PRN PO PAIN / TEMP; Start 09/05/17 at 15:00; Status Cancel Amiodarone HCl (Cordarone) 200 mg DAILY PO ; Start 09/06/17 at 09:00 Ascorbic Acid (Vitamin C) 500 mg DAILY PO Last administered on 09/06/17 10:26 ; Start 09/06/17 at 09:00 Aspirin (Children'S Aspirin) 81 mg DAILY PO Last administered on 09/06/17 10: 26; Start 09/06/17 at 09:00 Atorvastatin Calcium (Lipitor) 10 mg QHS PO Last administered on 09/06/17 20: 42; Start 09/05/17 at 21:00 Carvedilol (Coreg) 12.5 mg BIDWMEALS PO Last administered on 09/05/17 17:40; Start 09/05/17 at 17:00; Stop 09/06/17 at 11:20; Status DC Vitamin D (Vitamin D3) 1,000 unit DAILY PO Last administered on 09/06/17 10:25 ; Start 09/06/17 at 09:00 Cyanocobalamin (Vitamin B-12) 1,000 mcg DAILY PO Last administered on 10:26; Start 09/06/17 at 09:00 Divalproex Sodium (Depakote Sprinkles) 375 mg BID PO Last administered on 20:42; Start 09/05/17 at 21:00 Furosemide (Lasix) 40 mg DAILY PO ; Start 09/06/17 at 09:00 Lorazepam (Ativan) 0.25 mg PRN Q6HRS PRN PO ANXIETY / AGITATION; Start at 15:00 Magnesium Hydroxide (Milk Of Magnesia) 2,400 mg PRN QHS PRN PO CONSTIPATION; Start 09/05/17 at 15:00; Status Cancel Multi-Ingredient Ointment (Analgesic [place]) 1 darrel PRN QID PRN TP MUSCLE PAIN; Start 09/05/17 at 15:00; Status Cancel Mirtazapine (Remeron) 15 mg QHS PO Last administered on 09/06/17 20:42; Start 09/05/17 at 21:00 Polyethylene Glycol (miraLAX) 17 gm PRN DAILY PRN PO CONSTIPATION; Start at 09:00 Potassium Chloride (Klor-Con) 40 meq DAILY PO Last administered on 09/06/17 10 :34; Start 09/06/17 at 09:00 Risperidone (RisperDAL) 0.5 mg PRN Q6HRS PRN PO AGITATION; Start 09/05/17 at 15 :00 Sennosides (Senna) 8.6 mg DAILY PO Last administered on 09/06/17 10:26; Start 09/06/17 at 09:00 Sertraline HCl (Zoloft) 25 mg DAILY PO Last administered on 09/06/17 10:25; Start 09/06/17 at 09:00; Stop 09/06/17 at 19:30; Status DC Tamsulosin HCl (Flomax) 0.4 mg DAILY PO Last administered on 09/06/17 10:25; Start 09/06/17 at 09:00 Lisinopril (Prinivil) 20 mg DAILY PO ; Start 09/06/17 at 09:00; Stop 09/06/17 at 11:20; Status DC Al Hydroxide/Mg Hydroxide (Mylanta Plus Xs) 15 ml PRN AFTMEALHC PRN PO DYSPEPSIA; Start 09/05/17 at 15:45; Status Cancel Melatonin 3 mg QHS PO Last administered on 09/06/17 20:42; Start 09/05/17 at 21:00 Prenat Multivit/ [place]/Iron/Folic Ac (Multivitamin ) 1 tab DAILY PO Last administered on 09/06/17 10:26; Start 09/06/17 at 09:00 Olanzapine (ZyPREXA ZYDIS) 2.5 mg PRN Q2HR PRN PO AGITATION Last administered on 09/05/17 17:40; Start 09/05/17 at 17:30 Carvedilol (Coreg) 6.25 mg BIDWMEALS PO ; Start 09/06/17 at 17:00 Lisinopril (Prinivil) 10 mg DAILY PO ; Start 09/07/17 at 09:00 Quetiapine Fumarate (SEROquel) 12.5 mg BID92 PO ; Start 09/07/17 at 09:00; Stop 09/07/17 at 09:00; Status DC Sertraline HCl (Zoloft) 50 mg DAILY PO ; Start 09/07/17 at 09:00 Buspirone HCl (Buspar) 5 mg BID92 PO ; Start 11/8/17 at 09:00 Active Scripts Active Reported Risperdal (Risperidone) 0.5 Mg Tablet 0.5 Mg PO PRN Q6HRS PRN Ascorbic Acid 500 Mg Tablet 500 Mg PO DAILY Milk Of Magnesia (Magnesium Hydroxide) 400 Mg/5 Ml Oral.susp 2,400 Mg PO PRN QHS PRN Zoloft (Sertraline Hcl) 25 Mg Tablet 25 Mg PO DAILY Vitamins ( Vits W-Ca,Fe,Fa(<1MG)) 1 Each Tablet 1 Tab PO DAILY Mirtazapine 7.5 Mg Tablet 15 Mg PO QHS Analgesic [place] (Methyl Salicylate/Menthol) 28 Gm Oint...g. 1 Darrel TP PRN QID PRN Maalox Advanced Suspension (Mag Hydrox/Aluminum Hyd/Simeth) 355 Ml Oral.susp 15 Ml PO PRN AFTMEALHC PRN Vitamin B-12 (Cyanocobalamin (Vitamin B-12)) 1,000 Mcg Tablet 1,000 Mcg PO DAILY Polyethylene Glycol 3350 255 Gm Powder 17 Gm PO PRN DAILY PRN Tylenol (Acetaminophen) 325 Mg Tablet 650 Mg PO PRN Q6HRS PRN Lorazepam 0.5 Mg Tablet 0.25 Mg PO PRN Q6HRS PRN Furosemide 40 Mg Tablet 40 Mg PO DAILY Klor-Con M20 (Potassium Chloride) 20 Meq Tab.er.prt 40 Meq PO DAILY Lisinopril 40 Mg Tablet 20 Mg PO DAILY Vitamin D3 (Cholecalciferol (Vitamin D3)) 1,000 Unit Tablet 1,000 Unit PO DAILY Aspirin 81 Mg Tab.chew 81 Mg PO DAILY Amiodarone Hcl 200 Mg Tablet 200 Mg PO DAILY Atorvastatin Calcium 10 Mg Tablet 10 Mg PO QHS Tamsulosin Hcl 0.4 Mg Cap.er.24h 0.4 Mg PO DAILY Melatonin 3 Mg Tablet 3 Mg PO HS Senokot (Sennosides) 8.6 Mg Tablet 8.6 Mg PO DAILY Carvedilol 12.5 Mg Tablet 12.5 Mg PO BIDWMEALS Divalproex Sodium 125 Mg Cap.sprink 375 Mg PO BID JING ROSS MD Sep 06, 2017 21:52
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
[2017-09-07] MEDS: busPIRone 5 MG TABLET. PO SCH ×2 (07:47→13:50)
[2017-09-07] MEDS: CARVEDILOL 6.25 MG TABLET PO SCH ×2 (08:00→16:57)
[2017-09-07] MEDS: AMIODARONE HCL 200 MG TABLET PO SCH (09:00)
[2017-09-07] MEDS: FUROSEMIDE 40 MG TABLET PO SCH (09:00)
[2017-09-07] MEDS ORDERED: QUEtiapine 25 MG TABLET. PO SCH (09:00)
[2017-09-07] MEDS: LISINOPRIL 10 MG TABLET PO SCH (09:00)
[2017-09-07 09:50] VITALS: BP 120/79
[2017-09-07] MEDS: CHOLECALCIFEROL (VITAMIN D3) 1,000 UNIT TABLET PO SCH (10:04)
[2017-09-07] MEDS: SENNOSIDES 8.6 MG TABLET PO SCH (10:04)
[2017-09-07] MEDS: ASPIRIN 81 MG TAB.CHEW PO SCH (10:04)
[2017-09-07] MEDS: ASCORBIC ACID 500 MG TABLET PO SCH (10:04)
[2017-09-07] MEDS: TAMSULOSIN 0.4 MG CAP.ER.24H. PO SCH (10:04)
[2017-09-07] MEDS: POTASSIUM CHLORIDE 20 MEQ TABLET.ER. PO SCH (10:04)
[2017-09-07] MEDS: PRENATAL MULTIVITAMIN TABLET. PO SCH (10:04)
[2017-09-07] MEDS: CYANOCOBALAMIN (VITAMIN B-12) 1,000 MCG TABLET. PO SCH (10:04)
[2017-09-07] MEDS: DIVALPROEX 125 MG CAP.SPRINK PO SCH ×2 (10:05→19:47)
[2017-09-07] MEDS: SERTRALINE 50 MG TABLET. PO SCH (10:06)
[2017-09-07 10:11] LABS: VAL ACID 34 mcg/mL (50-100)
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
[2017-09-07 16:40] VITALS: BP 115/71
[2017-09-07] MEDS: MIRTAZAPINE 15 MG TABLET PO SCH (19:47)
[2017-09-07] MEDS: MELATONIN 3 MG TABLET PO SCH (19:47)
[2017-09-07] MEDS: ATORVASTATIN CALCIUM 10 MG TABLET. PO SCH (19:47)
--- NOTE | 2017-09-07 21:54 | PDOC ---
Exam Willard Demential Exam: Willard Note: Please also refer to the separate dictated note~for this date of service dictated separately.~Patient seen individually. Discussed the patient with Nursing staff reviewed the chart.~Reviewed interim history and current functioning. Reviewed vital signs,~Labs/ Radiology~and current medications noted below. Continue current treatment with the changes noted in the dictated addendum note Assessment: Vital Signs: Vital Signs Date Time Temp Pulse Resp B/P (MAP) Pulse Ox O2 Delivery O2 Flow Rate FiO2 09/07/17 16:57 60 115/71 09/07/17 16:40 97.1 20 94 Room Air I&O Intake and Output 09/08/17 07:00 Intake Total 600 ml Balance 600 ml Intake Oral 600 ml Labs: Laboratory Tests Test 09/07/17 09:33 Valproic Acid Level 34 mcg/mL (50-100) L Valproic Acid Last Dose Date 09/06/2017 Valproic Acid Last Dose Time 2100 Current Medications: Meds: Current Medications Acetaminophen (Tylenol) 650 mg PRN Q6HRS PRN PO PAIN / TEMP; Start 09/05/17 at 14:00 Multi-Ingredient Ointment (Analgesic [place]) 1 darrel PRN QID PRN TP MUSCLE PAIN; Start 09/05/17 at 14:00 Al Hydroxide/Mg Hydroxide (Mylanta Plus Xs) 15 ml PRN AFTMEALHC PRN PO DYSPEPSIA; Start 09/05/17 at 14:00 Magnesium Hydroxide (Milk Of Magnesia) 2,400 mg PRN QHS PRN PO CONSTIPATION; Start 09/05/17 at 14:00 Acetaminophen (Tylenol) 650 mg PRN Q6HRS PRN PO PAIN / TEMP; Start 09/05/17 at 15:00; Status Cancel Amiodarone HCl (Cordarone) 200 mg DAILY PO ; Start 09/06/17 at 09:00 Ascorbic Acid (Vitamin C) 500 mg DAILY PO Last administered on 09/07/17 10:04 ; Start 09/06/17 at 09:00 Aspirin (Children'S Aspirin) 81 mg DAILY PO Last administered on 09/07/17 10: 04; Start 09/06/17 at 09:00 Atorvastatin Calcium (Lipitor) 10 mg QHS PO Last administered on 09/07/17 19: 47; Start 09/05/17 at 21:00 Carvedilol (Coreg) 12.5 mg BIDWMEALS PO Last administered on 09/05/17 17:40; Start 09/05/17 at 17:00; Stop 09/06/17 at 11:20; Status DC Vitamin D (Vitamin D3) 1,000 unit DAILY PO Last administered on 09/07/17 10:04 ; Start 09/06/17 at 09:00 Cyanocobalamin (Vitamin B-12) 1,000 mcg DAILY PO Last administered on 10:04; Start 09/06/17 at 09:00 Divalproex Sodium (Depakote Sprinkles) 375 mg BID PO Last administered on 10:05; Start 09/05/17 at 21:00; Stop 09/07/17 at 17:38; Status DC Furosemide (Lasix) 40 mg DAILY PO ; Start 09/06/17 at 09:00 Lorazepam (Ativan) 0.25 mg PRN Q6HRS PRN PO ANXIETY / AGITATION; Start at 15:00 Magnesium Hydroxide (Milk Of Magnesia) 2,400 mg PRN QHS PRN PO CONSTIPATION; Start 09/05/17 at 15:00; Status Cancel Multi-Ingredient Ointment (Analgesic [place]) 1 darrel PRN QID PRN TP MUSCLE PAIN; Start 09/05/17 at 15:00; Status Cancel Mirtazapine (Remeron) 15 mg QHS PO Last administered on 09/07/17 19:47; Start 09/05/17 at 21:00 Polyethylene Glycol (miraLAX) 17 gm PRN DAILY PRN PO CONSTIPATION; Start at 09:00 Potassium Chloride (Klor-Con) 40 meq DAILY PO Last administered on 09/07/17 10 :04; Start 09/06/17 at 09:00 Risperidone (RisperDAL) 0.5 mg PRN Q6HRS PRN PO AGITATION; Start 09/05/17 at 15 :00; Stop 09/07/17 at 15:49; Status DC Sennosides (Senna) 8.6 mg DAILY PO Last administered on 09/07/17 10:04; Start 09/06/17 at 09:00 Sertraline HCl (Zoloft) 25 mg DAILY PO Last administered on 09/06/17 10:25; Start 09/06/17 at 09:00; Stop 09/06/17 at 19:30; Status DC Tamsulosin HCl (Flomax) 0.4 mg DAILY PO Last administered on 09/07/17 10:04; Start 09/06/17 at 09:00 Lisinopril (Prinivil) 20 mg DAILY PO ; Start 09/06/17 at 09:00; Stop 09/06/17 at 11:20; Status DC Al Hydroxide/Mg Hydroxide (Mylanta Plus Xs) 15 ml PRN AFTMEALHC PRN PO DYSPEPSIA; Start 09/05/17 at 15:45; Status Cancel Melatonin 3 mg QHS PO Last administered on 09/07/17 19:47; Start 09/05/17 at 21:00 Prenat Multivit/ Implementation Consultant/Iron/Folic Ac (Multivitamin ) 1 tab DAILY PO Last administered on 09/07/17 10:04; Start 09/06/17 at 09:00 Olanzapine (ZyPREXA ZYDIS) 2.5 mg PRN Q2HR PRN PO AGITATION Last administered on 09/07/17 21:07; Start 09/05/17 at 17:30 Carvedilol (Coreg) 6.25 mg BIDWMEALS PO ; Start 09/06/17 at 17:00 Lisinopril (Prinivil) 10 mg DAILY PO ; Start 09/07/17 at 09:00 Quetiapine Fumarate (SEROquel) 12.5 mg BID92 PO ; Start 09/07/17 at 09:00; Stop 09/07/17 at 09:00; Status DC Sertraline HCl (Zoloft) 50 mg DAILY PO Last administered on 09/07/17 10:06; Start 09/07/17 at 09:00 Buspirone HCl (Buspar) 5 mg BID92 PO Last administered on 09/07/17 13:50; Start 09/07/17 at 09:00 Divalproex Sodium (Depakote Sprinkles) 500 mg BID PO Last administered on 19:47; Start 09/07/17 at 21:00 Active Scripts Active Reported Risperdal (Risperidone) 0.5 Mg Tablet 0.5 Mg PO PRN Q6HRS PRN Ascorbic Acid 500 Mg Tablet 500 Mg PO DAILY Milk Of Magnesia (Magnesium Hydroxide) 400 Mg/5 Ml Oral.susp 2,400 Mg PO PRN QHS PRN Zoloft (Sertraline Hcl) 25 Mg Tablet 25 Mg PO DAILY Vitamins ( Vits W-Ca,Fe,Fa(<1MG)) 1 Each Tablet 1 Tab PO DAILY Mirtazapine 7.5 Mg Tablet 15 Mg PO QHS Analgesic [place] (Methyl Salicylate/Menthol) 28 Gm Oint...g. 1 Darrel TP PRN QID PRN Maalox Advanced Suspension (Mag Hydrox/Aluminum Hyd/Simeth) 355 Ml Oral.susp 15 Ml PO PRN AFTMEALHC PRN Vitamin B-12 (Cyanocobalamin (Vitamin B-12)) 1,000 Mcg Tablet 1,000 Mcg PO DAILY Polyethylene Glycol 3350 255 Gm Powder 17 Gm PO PRN DAILY PRN Tylenol (Acetaminophen) 325 Mg Tablet 650 Mg PO PRN Q6HRS PRN Lorazepam 0.5 Mg Tablet 0.25 Mg PO PRN Q6HRS PRN Furosemide 40 Mg Tablet 40 Mg PO DAILY Klor-Con M20 (Potassium Chloride) 20 Meq Tab.er.prt 40 Meq PO DAILY Lisinopril 40 Mg Tablet 20 Mg PO DAILY Vitamin D3 (Cholecalciferol (Vitamin D3)) 1,000 Unit Tablet 1,000 Unit PO DAILY Aspirin 81 Mg Tab.chew 81 Mg PO DAILY Amiodarone Hcl 200 Mg Tablet 200 Mg PO DAILY Atorvastatin Calcium 10 Mg Tablet 10 Mg PO QHS Tamsulosin Hcl 0.4 Mg Cap.er.24h 0.4 Mg PO DAILY Melatonin 3 Mg Tablet 3 Mg PO HS Senokot (Sennosides) 8.6 Mg Tablet 8.6 Mg PO DAILY Carvedilol 12.5 Mg Tablet 12.5 Mg PO BIDWMEALS Divalproex Sodium 125 Mg Cap.sprink 375 Mg PO BID Diagnosis: Problems: (1) Dementia with behavioral disturbance (2) Anxiety disorder (3) Impulse control disorder (4) Dementia, vascular, with depression (5) Dementia, vascular, with delusions (6) Dementia in Alzheimer's disease with depression (7) Dementia in Alzheimer's disease with delusions JING ROSS MD Sep 07, 2017 21:54
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
[2017-09-08] MEDS: CARVEDILOL 6.25 MG TABLET PO SCH ×2 (08:00→17:00)
[2017-09-08] MEDS: CYANOCOBALAMIN (VITAMIN B-12) 1,000 MCG TABLET. PO SCH (09:00)
[2017-09-08] MEDS: busPIRone 5 MG TABLET. PO SCH (09:00)
[2017-09-08] MEDS: AMIODARONE HCL 200 MG TABLET PO SCH (09:00)
[2017-09-08] MEDS: LISINOPRIL 10 MG TABLET PO SCH (09:00)
[2017-09-08] MEDS: POTASSIUM CHLORIDE 20 MEQ TABLET.ER. PO SCH (09:00)
[2017-09-08] MEDS: ASCORBIC ACID 500 MG TABLET PO SCH (09:00)
[2017-09-08] MEDS: CHOLECALCIFEROL (VITAMIN D3) 1,000 UNIT TABLET PO SCH (09:00)
[2017-09-08] MEDS: PRENATAL MULTIVITAMIN TABLET. PO SCH (09:00)
[2017-09-08 12:17] VITALS: BP 127/69
[2017-09-08] MEDS: TAMSULOSIN 0.4 MG CAP.ER.24H. PO SCH (12:19)
[2017-09-08] MEDS: DIVALPROEX 125 MG CAP.SPRINK PO SCH ×2 (12:19→19:41)
[2017-09-08] MEDS: FUROSEMIDE 40 MG TABLET PO SCH (12:19)
[2017-09-08] MEDS: SENNOSIDES 8.6 MG TABLET PO SCH (12:20)
[2017-09-08] MEDS: ASPIRIN 81 MG TAB.CHEW PO SCH (12:20)
[2017-09-08] MEDS: SERTRALINE 50 MG TABLET. PO SCH (12:20)
[2017-09-08] MEDS: busPIRone 10 MG TABLET. PO SCH (14:43)
[2017-09-08 15:49] VITALS: BP 117/77
[2017-09-08] MEDS: MELATONIN 3 MG TABLET PO SCH (19:41)
[2017-09-08] MEDS: MIRTAZAPINE 15 MG TABLET PO SCH (19:41)
[2017-09-08] MEDS: ATORVASTATIN CALCIUM 10 MG TABLET. PO SCH (19:41)
[2017-09-09 06:23] VITALS: BP 167/74
[2017-09-09 07:44] VITALS: BP 117/67
[2017-09-09] MEDS: CARVEDILOL 6.25 MG TABLET PO SCH ×2 (08:00→17:00)
[2017-09-09] MEDS: busPIRone 10 MG TABLET. PO SCH ×2 (08:40→13:58)
[2017-09-09] MEDS: CYANOCOBALAMIN (VITAMIN B-12) 1,000 MCG TABLET. PO SCH (08:40)
[2017-09-09] MEDS: ASCORBIC ACID 500 MG TABLET PO SCH (08:40)
[2017-09-09] MEDS: FUROSEMIDE 40 MG TABLET PO SCH (08:40)
[2017-09-09] MEDS: CHOLECALCIFEROL (VITAMIN D3) 1,000 UNIT TABLET PO SCH (08:40)
[2017-09-09] MEDS: ASPIRIN 81 MG TAB.CHEW PO SCH (08:41)
[2017-09-09] MEDS: LISINOPRIL 10 MG TABLET PO SCH (08:41)
[2017-09-09] MEDS: AMIODARONE HCL 200 MG TABLET PO SCH (08:41)
[2017-09-09] MEDS: DIVALPROEX 125 MG CAP.SPRINK PO SCH ×2 (08:41→19:46)
[2017-09-09] MEDS: SERTRALINE 50 MG TABLET. PO SCH (08:44)
[2017-09-09] MEDS: SENNOSIDES 8.6 MG TABLET PO SCH (08:44)
[2017-09-09] MEDS: risperiDONE 0.25 MG TABLET. PO SCH ×3 (08:44→18:06)
[2017-09-09] MEDS: PRENATAL MULTIVITAMIN TABLET. PO SCH (08:44)
[2017-09-09] MEDS: TAMSULOSIN 0.4 MG CAP.ER.24H. PO SCH (08:44)
[2017-09-09] MEDS: POTASSIUM CHLORIDE 20 MEQ TABLET.ER. PO SCH (08:44)
[2017-09-09 16:44] VITALS: BP 117/75
[2017-09-09 16:51] VITALS: BP 104/62
[2017-09-09] MEDS: ATORVASTATIN CALCIUM 10 MG TABLET. PO SCH (19:46)
[2017-09-09] MEDS: MIRTAZAPINE 15 MG TABLET PO SCH (19:46)
[2017-09-09] MEDS: MELATONIN 3 MG TABLET PO SCH (19:46)
--- NOTE | 2017-09-09 20:17 | PDOC ---
Exam Note: Willard Note: Please also refer to the separate dictated note~for this date of service dictated separately.~Patient seen individually. Discussed the patient with Nursing staff reviewed the chart.~Reviewed interim history and current functioning. Reviewed vital signs,~Labs/ Radiology~and current medications noted below. Continue current treatment with the changes noted in the dictated addendum note Assessment: Vital Signs: Vital Signs Date Time Temp Pulse Resp B/P (MAP) Pulse Ox O2 Delivery O2 Flow Rate FiO2 09/09/17 17:00 72 104/62 09/09/17 16:51 93 09/09/17 16:44 98.0 18 09/08/17 15:49 Room Air I&O Intake and Output 09/10/17 07:00 Intake Total 1080 ml Balance 1080 ml Intake Oral 1080 ml Current Medications: Meds: Current Medications Acetaminophen (Tylenol) 650 mg PRN Q6HRS PRN PO PAIN / TEMP; Start 09/05/17 at 14:00 Multi-Ingredient Ointment (Analgesic Hallie) 1 darrel PRN QID PRN TP MUSCLE PAIN; Start 09/05/17 at 14:00 Al Hydroxide/Mg Hydroxide (Mylanta Plus Xs) 15 ml PRN AFTMEALHC PRN PO DYSPEPSIA; Start 09/05/17 at 14:00 Magnesium Hydroxide (Milk Of Magnesia) 2,400 mg PRN QHS PRN PO CONSTIPATION; Start 09/05/17 at 14:00 Acetaminophen (Tylenol) 650 mg PRN Q6HRS PRN PO PAIN / TEMP; Start 09/05/17 at 15:00; Status Cancel Amiodarone HCl (Cordarone) 200 mg DAILY PO Last administered on 09/09/17 08: 41; Start 09/06/17 at 09:00 Ascorbic Acid (Vitamin C) 500 mg DAILY PO Last administered on 09/09/17 08:40 ; Start 09/06/17 at 09:00 Aspirin (Children'S Aspirin) 81 mg DAILY PO Last administered on 09/09/17 08: 41; Start 09/06/17 at 09:00 Atorvastatin Calcium (Lipitor) 10 mg QHS PO Last administered on 09/09/17 19: 46; Start 09/05/17 at 21:00 Carvedilol (Coreg) 12.5 mg BIDWMEALS PO Last administered on 09/05/17 17:40; Start 09/05/17 at 17:00; Stop 09/06/17 at 11:20; Status DC Vitamin D (Vitamin D3) 1,000 unit DAILY PO Last administered on 09/09/17 08: 40; Start 09/06/17 at 09:00 Cyanocobalamin (Vitamin B-12) 1,000 mcg DAILY PO Last administered on 08:40; Start 09/06/17 at 09:00 Divalproex Sodium (Depakote Sprinkles) 375 mg BID PO Last administered on 10:05; Start 09/05/17 at 21:00; Stop 09/07/17 at 17:38; Status DC Furosemide (Lasix) 40 mg DAILY PO Last administered on 09/09/17 08:40; Start 09/06/17 at 09:00 Lorazepam (Ativan) 0.25 mg PRN Q6HRS PRN PO ANXIETY / AGITATION; Start at 15:00 Magnesium Hydroxide (Milk Of Magnesia) 2,400 mg PRN QHS PRN PO CONSTIPATION; Start 09/05/17 at 15:00; Status Cancel Multi-Ingredient Ointment (Analgesic Hallie) 1 darrel PRN QID PRN TP MUSCLE PAIN; Start 09/05/17 at 15:00; Status Cancel Mirtazapine (Remeron) 15 mg QHS PO Last administered on 09/09/17 19:46; Start 09/05/17 at 21:00 Polyethylene Glycol (miraLAX) 17 gm PRN DAILY PRN PO CONSTIPATION; Start at 09:00 Potassium Chloride (Klor-Con) 40 meq DAILY PO Last administered on 09/09/17 08:44; Start 09/06/17 at 09:00 Risperidone (RisperDAL) 0.5 mg PRN Q6HRS PRN PO AGITATION; Start 09/05/17 at 15 :00; Stop 09/07/17 at 15:49; Status DC Sennosides (Senna) 8.6 mg DAILY PO Last administered on 09/09/17 08:44; Start 09/06/17 at 09:00 Sertraline HCl (Zoloft) 25 mg DAILY PO Last administered on 09/06/17 10:25; Start 09/06/17 at 09:00; Stop 09/06/17 at 19:30; Status DC Tamsulosin HCl (Flomax) 0.4 mg DAILY PO Last administered on 09/09/17 08:44; Start 09/06/17 at 09:00 Lisinopril (Prinivil) 20 mg DAILY PO ; Start 09/06/17 at 09:00; Stop 09/06/17 at 11:20; Status DC Al Hydroxide/Mg Hydroxide (Mylanta Plus Xs) 15 ml PRN AFTMEALHC PRN PO DYSPEPSIA; Start 09/05/17 at 15:45; Status Cancel Melatonin 3 mg QHS PO Last administered on 09/09/17 19:46; Start 09/05/17 at 21:00 Prenat Multivit/ [place]/Iron/Folic Ac (Multivitamin ) 1 tab DAILY PO Last administered on 09/09/17 08:44; Start 09/06/17 at 09:00 Olanzapine (ZyPREXA ZYDIS) 2.5 mg PRN Q2HR PRN PO AGITATION Last administered on 09/08/17 10:58; Start 09/05/17 at 17:30 Carvedilol (Coreg) 6.25 mg BIDWMEALS PO ; Start 09/06/17 at 17:00 Lisinopril (Prinivil) 10 mg DAILY PO ; Start 09/07/17 at 09:00 Quetiapine Fumarate (SEROquel) 12.5 mg BID92 PO ; Start 09/07/17 at 09:00; Stop 09/07/17 at 09:00; Status DC Sertraline HCl (Zoloft) 50 mg DAILY PO Last administered on 09/09/17 08:44; Start 09/07/17 at 09:00 Buspirone HCl (Buspar) 5 mg BID92 PO Last administered on 09/08/17 09:00; Start 09/07/17 at 09:00; Stop 09/08/17 at 12:03; Status DC Divalproex Sodium (Depakote Sprinkles) 500 mg BID PO Last administered on 09/09 19:46; Start 09/07/17 at 21:00 Buspirone HCl (Buspar) 10 mg BID92 PO Last administered on 09/09/17 13:58; Start 09/08/17 at 14:00 Risperidone (RisperDAL) 0.125 mg TID@0900,1400,1700 PO Last administered on 18:06; Start 09/09/17 at 09:00 Active Scripts Active Reported Risperdal (Risperidone) 0.5 Mg Tablet 0.5 Mg PO PRN Q6HRS PRN Ascorbic Acid 500 Mg Tablet 500 Mg PO DAILY Milk Of Magnesia (Magnesium Hydroxide) 400 Mg/5 Ml Oral.susp 2,400 Mg PO PRN QHS PRN Zoloft (Sertraline Hcl) 25 Mg Tablet 25 Mg PO DAILY Vitamins ( Vits W-Ca,Fe,Fa(<1MG)) 1 Each Tablet 1 Tab PO DAILY Mirtazapine 7.5 Mg Tablet 15 Mg PO QHS Analgesic Hallie (Methyl Salicylate/Menthol) 28 Gm Oint...g. 1 Darrel TP PRN QID PRN Maalox Advanced Suspension (Mag Hydrox/Aluminum Hyd/Simeth) 355 Ml Oral.susp 15 Ml PO PRN AFTMEALHC PRN Vitamin B-12 (Cyanocobalamin (Vitamin B-12)) 1,000 Mcg Tablet 1,000 Mcg PO DAILY Polyethylene Glycol 3350 255 Gm Powder 17 Gm PO PRN DAILY PRN Tylenol (Acetaminophen) 325 Mg Tablet 650 Mg PO PRN Q6HRS PRN Lorazepam 0.5 Mg Tablet 0.25 Mg PO PRN Q6HRS PRN Furosemide 40 Mg Tablet 40 Mg PO DAILY Klor-Con M20 (Potassium Chloride) 20 Meq Tab.er.prt 40 Meq PO DAILY Lisinopril 40 Mg Tablet 20 Mg PO DAILY Vitamin D3 (Cholecalciferol (Vitamin D3)) 1,000 Unit Tablet 1,000 Unit PO DAILY Aspirin 81 Mg Tab.chew 81 Mg PO DAILY Amiodarone Hcl 200 Mg Tablet 200 Mg PO DAILY Atorvastatin Calcium 10 Mg Tablet 10 Mg PO QHS Tamsulosin Hcl 0.4 Mg Cap.er.24h 0.4 Mg PO DAILY Melatonin 3 Mg Tablet 3 Mg PO HS Senokot (Sennosides) 8.6 Mg Tablet 8.6 Mg PO DAILY Carvedilol 12.5 Mg Tablet 12.5 Mg PO BIDWMEALS Divalproex Sodium 125 Mg Cap.sprink 375 Mg PO BID I have reviewed the current psychotropics carefully including drug interactions. Risk benefit ratio favors no change other than as noted in my dictated progress note. Diagnosis: Problems: (1) Dementia with behavioral disturbance (2) Anxiety disorder (3) Impulse control disorder (4) Dementia, vascular, with depression (5) Dementia, vascular, with delusions (6) Dementia in Alzheimer's disease with depression (7) Dementia in Alzheimer's disease with delusions JING ROSS MD Sep 09, 2017 20:17
[2017-09-10 06:11] VITALS: BP 134/78
[2017-09-10] MEDS: TAMSULOSIN 0.4 MG CAP.ER.24H. PO SCH (08:05)
[2017-09-10] MEDS: POTASSIUM CHLORIDE 20 MEQ TABLET.ER. PO SCH (08:06)
[2017-09-10] MEDS: CHOLECALCIFEROL (VITAMIN D3) 1,000 UNIT TABLET PO SCH (08:06)
[2017-09-10] MEDS: DIVALPROEX 125 MG CAP.SPRINK PO SCH ×2 (08:06→17:27)
[2017-09-10] MEDS: CARVEDILOL 6.25 MG TABLET PO SCH ×2 (08:06→17:27)
[2017-09-10] MEDS: SENNOSIDES 8.6 MG TABLET PO SCH (08:06)
[2017-09-10] MEDS: busPIRone 10 MG TABLET. PO SCH ×2 (08:06→13:36)
[2017-09-10] MEDS: ASCORBIC ACID 500 MG TABLET PO SCH (08:07)
[2017-09-10] MEDS: CYANOCOBALAMIN (VITAMIN B-12) 1,000 MCG TABLET. PO SCH (08:07)
[2017-09-10] MEDS: SERTRALINE 50 MG TABLET. PO SCH (08:07)
[2017-09-10] MEDS: PRENATAL MULTIVITAMIN TABLET. PO SCH (08:07)
[2017-09-10] MEDS: risperiDONE 0.25 MG TABLET. PO SCH ×3 (08:07→17:28)
[2017-09-10] MEDS: ASPIRIN 81 MG TAB.CHEW PO SCH (08:07)
[2017-09-10] MEDS: LISINOPRIL 10 MG TABLET PO SCH (08:07)
[2017-09-10] MEDS: FUROSEMIDE 40 MG TABLET PO SCH (08:08)
[2017-09-10] MEDS: AMIODARONE HCL 200 MG TABLET PO SCH (08:08)
--- NOTE | 2017-09-10 08:22 | PN ---
DATE: 09/07/2017 This late entry of 09/07/2017 covers elements not covered in my initial note of 09/07/2017. I met with the patient in the evening of 09/07/2017. The patient had a very difficult day, very angry, labile in the morning, especially with another demented patient going into his room, pushing at nursing staff, grabbed the name plate of the nursing staff and broke it. Flipping off nursing staff, verbally abusive, door checking repeatedly. REVIEW OF SYSTEMS: No CV, , pulmonary, eye, ENT system symptoms on review. Reliability poor. MENTAL STATUS EXAM: Oriented to himself. Insight, judgment, recent and remote memory, attention, concentration, fund of knowledge poor, consistent with his diagnosis mentioned in my initial note. PLAN: Continue current psychotropics. Increase Depakote Sprinkle from 375 b.i.d. to 500 b.i.d. Check CBC, CMP, and valproic acid level in 3 days since the current level at the lower dosage is 34 subtherapeutic, rest unchanged. MAN Lucas ROSS MD DR: JERI/pedro JOB#: [id number] / [id number]
[2017-09-10 08:34] LABS: ALBUMIN/GLOBULIN RATIO 0.7 (1.0-1.7); ALK PHOS 92 U/L (46-116); ALT (SGPT) 20 U/L (16-63); ANION GAP 8 (6-14); AST (SGOT) 25 U/L (15-37); BLOOD UREA NITROGEN 29 mg/dL (8-26); BUN/CREATININE RATIO 24 (6-20); CALCIUM 8.8 mg/dL (8.5-10.1); CARBON DIOXIDE 26 mmol/L (21-32); CHLORIDE 111 mmol/L (98-107); CREATININE 1.2 mg/dL (0.7-1.3); GFR 57.8; GLUCOSE 72 mg/dL (70-99); POTASSIUM 3.9 mmol/L (3.5-5.1); SODIUM 145 mmol/L (136-145); TOTAL BILIRUBIN 0.6 mg/dL (0.2-1.0); TOTAL PROTEIN 7.3 g/dL (6.4-8.2)
[2017-09-10 08:35] LABS: BASO % 0 % (0-3); EOS # 0.1 x10^3/uL (0.0-0.7); EOS % 1 % (0-3); HEMATOCRIT 33.7 % (39.0-53.0); HEMOGLOBIN 11.6 g/dL (13.0-17.5); LYMPH % 26 % (24-48); MEAN CORPUSCULAR HEMOGLOBIN 38 pg (25-35); MEAN CORPUSCULAR HGB CONC 35 g/dL (31-37); MEAN CORPUSCULAR VOLUME 109 fL (79-100); MONO # 0.8 x10^3/uL (0.0-1.1); MONO % 11 % (0-9); NEUT # 4.8 x10^3uL (1.8-7.7); NEUT % 62 % (31-73); PLATELET COUNT 135 x10^3/uL (140-400); RED CELL DISTRIBUTION WIDTH 14.6 % (11.5-14.5); WHITE BLOOD COUNT 7.7 x10^3/uL (4.0-11.0)
[2017-09-10 08:42] LABS: VAL ACID 46 mcg/mL (50-100)
--- NOTE | 2017-09-10 08:55 | PN ---
DATE: 09/08/2017 SUBJECTIVE: This late entry 09/08/2017 covers elements not covered in my initial note 09/08/2017. The patient was staffed a treatment team meeting morning of 09/08/2017 and individually evening of 09/08/2017. He fell on the 7th. CT head is negative. Hip x-ray was negative, slept 6 hours previous evening, wandering the hallways, intrusive at times. Sleep is poor. Zyprexa at 6:00 p.m. and 9:00 p.m. seemed to help, banging on the doors and the nursing staff window. Reviewed his history, current treatment and discharge plans at length. REVIEW OF SYSTEMS: No CV, , pulmonary, eye, ENT system symptoms on review. Reliability poor. MENTAL STATUS EXAM: Oriented to himself. Insight, judgment, recent and remote memory, attention, concentration, fund of knowledge poor, consistent with his diagnosis mentioned in my initial note. PLAN: Continue current psychotropics. Start Risperdal scheduled 0.125 mg at 9:00 a.m., 2:00 p.m., and 5 p.m. Reviewed drug interactions. Continue rest of psychotropics mentioned in my initial note. MAN Lucas ROSS MD DR: JERI/pedro JOB#: [id number] / [id number]
[2017-09-10] MEDS: MELATONIN 3 MG TABLET PO SCH (17:27)
[2017-09-10] MEDS: MIRTAZAPINE 15 MG TABLET PO SCH (17:27)
[2017-09-10] MEDS: ATORVASTATIN CALCIUM 10 MG TABLET. PO SCH (17:27)
[2017-09-10] MEDS ORDERED: traZODone 50 MG TABLET. PO PRN (18:45)
--- NOTE | 2017-09-10 20:05 | PDOC ---
Exam Note: [place] Note: Please also refer to the separate dictated note~for this date of service dictated separately.~Patient seen individually. Discussed the patient with Nursing staff reviewed the chart.~Reviewed interim history and current functioning. Reviewed vital signs,~Labs/ Radiology~and current medications noted below. Continue current treatment with the changes noted in the dictated addendum note Assessment: Vital Signs: Vital Signs Date Time Temp Pulse Resp B/P (MAP) Pulse Ox O2 Delivery O2 Flow Rate FiO2 09/10/17 17:27 61 134/78 09/10/17 06:11 97.3 24 97 09/08/17 15:49 Room Air I&O Intake and Output 09/11/17 07:00 Intake Total 600 ml Balance 600 ml Intake Oral 600 ml Labs: Laboratory Tests Test 09/10/17 07:41 White Blood Count 7.7 x10^3/uL (4.0-11.0) Red Blood Count 3.10 x10^6/uL (4.30-5.70) L Hemoglobin 11.6 g/dL (13.0-17.5) L Hematocrit 33.7 % (39.0-53.0) L Mean Corpuscular Volume 109 fL (79-100) H Mean Corpuscular Hemoglobin 38 pg (25-35) H Mean Corpuscular Hemoglobin Concent 35 g/dL (31-37) Red Cell Distribution Width 14.6 % (11.5-14.5) H Platelet Count 135 x10^3/uL (140-400) L Neutrophils (%) (Auto) 62 % (31-73) Lymphocytes (%) (Auto) 26 % (24-48) Monocytes (%) (Auto) 11 % (0-9) H Eosinophils (%) (Auto) 1 % (0-3) Basophils (%) (Auto) 0 % (0-3) Neutrophils # (Auto) 4.8 x10^3uL (1.8-7.7) Lymphocytes # (Auto) 2.0 x10^3/uL (1.0-4.8) Monocytes # (Auto) 0.8 x10^3/uL (0.0-1.1) Eosinophils # (Auto) 0.1 x10^3/uL (0.0-0.7) Basophils # (Auto) 0.0 x10^3/uL (0.0-0.2) Sodium Level 145 mmol/L (136-145) Potassium Level 3.9 mmol/L (3.5-5.1) Chloride Level 111 mmol/L (98-107) H Carbon Dioxide Level 26 mmol/L (21-32) Anion Gap 8 (6-14) Blood Urea Nitrogen 29 mg/dL (8-26) H Creatinine 1.2 mg/dL (0.7-1.3) Estimated GFR (Cockcroft-Gault) 57.8 BUN/Creatinine Ratio 24 (6-20) H Glucose Level 72 mg/dL (70-99) Calcium Level 8.8 mg/dL (8.5-10.1) Total Bilirubin 0.6 mg/dL (0.2-1.0) Aspartate Amino Transferase (AST) 25 U/L (15-37) Alanine Aminotransferase (ALT) 20 U/L (16-63) Alkaline Phosphatase 92 U/L (46-116) Total Protein 7.3 g/dL (6.4-8.2) Albumin 3.0 g/dL (3.4-5.0) L Albumin/Globulin Ratio 0.7 (1.0-1.7) L Valproic Acid Level 46 mcg/mL (50-100) L Valproic Acid Last Dose Date 09/09/17 Valproic Acid Last Dose Time 2100 Current Medications: Meds: Current Medications Acetaminophen (Tylenol) 650 mg PRN Q6HRS PRN PO PAIN / TEMP; Start 09/05/17 at 14:00 Multi-Ingredient Ointment (Analgesic [place]) 1 darrel PRN QID PRN TP MUSCLE PAIN; Start 09/05/17 at 14:00 Al Hydroxide/Mg Hydroxide (Mylanta Plus Xs) 15 ml PRN AFTMEALHC PRN PO DYSPEPSIA; Start 09/05/17 at 14:00 Magnesium Hydroxide (Milk Of Magnesia) 2,400 mg PRN QHS PRN PO CONSTIPATION; Start 09/05/17 at 14:00 Acetaminophen (Tylenol) 650 mg PRN Q6HRS PRN PO PAIN / TEMP; Start 09/05/17 at 15:00; Status Cancel Amiodarone HCl (Cordarone) 200 mg DAILY PO Last administered on 09/10/17t 08: 08; Start 09/06/17 at 09:00 Ascorbic Acid (Vitamin C) 500 mg DAILY PO Last administered on 09/10/17 08:07 ; Start 09/06/17 at 09:00 Aspirin (Children'S Aspirin) 81 mg DAILY PO Last administered on 09/10/17 08: 07; Start 09/06/17 at 09:00 Atorvastatin Calcium (Lipitor) 10 mg QHS PO Last administered on 09/10/17 17: 27; Start 09/05/17 at 21:00 Carvedilol (Coreg) 12.5 mg BIDWMEALS PO Last administered on 09/05/17 17:40; Start 09/05/17 at 17:00; Stop 09/06/17 at 11:20; Status DC Vitamin D (Vitamin D3) 1,000 unit DAILY PO Last administered on 09/10/17 08: 06; Start 09/06/17 at 09:00 Cyanocobalamin (Vitamin B-12) 1,000 mcg DAILY PO Last administered on 08:07; Start 09/06/17 at 09:00 Divalproex Sodium (Depakote Sprinkles) 375 mg BID PO Last administered on 10:05; Start 09/05/17 at 21:00; Stop 09/07/17 at 17:38; Status DC Furosemide (Lasix) 40 mg DAILY PO Last administered on 09/10/17 08:08; Start 09/06/17 at 09:00 Lorazepam (Ativan) 0.25 mg PRN Q6HRS PRN PO ANXIETY / AGITATION; Start at 15:00 Magnesium Hydroxide (Milk Of Magnesia) 2,400 mg PRN QHS PRN PO CONSTIPATION; Start 09/05/17 at 15:00; Status Cancel Multi-Ingredient Ointment (Analgesic [place]) 1 darrel PRN QID PRN TP MUSCLE PAIN; Start 09/05/17 at 15:00; Status Cancel Mirtazapine (Remeron) 15 mg QHS PO Last administered on 09/10/17 17:27; Start 09/05/17 at 21:00 Polyethylene Glycol (miraLAX) 17 gm PRN DAILY PRN PO CONSTIPATION; Start at 09:00 Potassium Chloride (Klor-Con) 40 meq DAILY PO Last administered on 09/10/17 08:06; Start 09/06/17 at 09:00 Risperidone (RisperDAL) 0.5 mg PRN Q6HRS PRN PO AGITATION; Start 09/05/17 at 15 :00; Stop 09/07/17 at 15:49; Status DC Sennosides (Senna) 8.6 mg DAILY PO Last administered on 09/10/17 08:06; Start 09/06/17 at 09:00 Sertraline HCl (Zoloft) 25 mg DAILY PO Last administered on 09/06/17 10:25; Start 09/06/17 at 09:00; Stop 09/06/17 at 19:30; Status DC Tamsulosin HCl (Flomax) 0.4 mg DAILY PO Last administered on 09/10/17 08:05; Start 09/06/17 at 09:00 Lisinopril (Prinivil) 20 mg DAILY PO ; Start 09/06/17 at 09:00; Stop 09/06/17 at 11:20; Status DC Al Hydroxide/Mg Hydroxide (Mylanta Plus Xs) 15 ml PRN AFTMEALHC PRN PO DYSPEPSIA; Start 09/05/17 at 15:45; Status Cancel Melatonin 3 mg QHS PO Last administered on 09/10/17 17:27; Start 09/05/17 at 21:00 Prenat Multivit/ Pin Pusher/Iron/Folic Ac (Multivitamin ) 1 tab DAILY PO Last administered on 09/10/17 08:07; Start 09/06/17 at 09:00 Olanzapine (ZyPREXA ZYDIS) 2.5 mg PRN Q2HR PRN PO AGITATION Last administered on 09/08/17 10:58; Start 09/05/17 at 17:30 Carvedilol (Coreg) 6.25 mg BIDWMEALS PO Last administered on 09/10/17 17:27; Start 09/06/17 at 17:00 Lisinopril (Prinivil) 10 mg DAILY PO Last administered on 09/10/17 08:07; Start 09/07/17 at 09:00 Quetiapine Fumarate (SEROquel) 12.5 mg BID92 PO ; Start 09/07/17 at 09:00; Stop 09/07/17 at 09:00; Status DC Sertraline HCl (Zoloft) 50 mg DAILY PO Last administered on 09/10/17 08:07; Start 09/07/17 at 09:00 Buspirone HCl (Buspar) 5 mg BID92 PO Last administered on 09/08/17 09:00; Start 09/07/17 at 09:00; Stop 09/08/17 at 12:03; Status DC Divalproex Sodium (Depakote Sprinkles) 500 mg BID PO Last administered on 09/10 17:27; Start 09/07/17 at 21:00; Stop 09/10/17 at 18:39; Status DC Buspirone HCl (Buspar) 10 mg BID92 PO Last administered on 09/10/17 13:36; Start 09/08/17 at 14:00 Risperidone (RisperDAL) 0.125 mg TID@0900,1400,1700 PO Last administered on 17:28; Start 09/09/17 at 09:00 Divalproex Sodium (Depakote Sprinkles) 625 mg BID PO ; Start 09/11/17 at 09:00 Trazodone HCl (Desyrel) 50 mg QHS PO ; Start 09/10/17 at 21:00 Trazodone HCl (Desyrel) 50 mg PRN QHS PRN PO INSOMNIA; Start 09/10/17 at 18:45 Active Scripts Active Reported Risperdal (Risperidone) 0.5 Mg Tablet 0.5 Mg PO PRN Q6HRS PRN Ascorbic Acid 500 Mg Tablet 500 Mg PO DAILY Milk Of Magnesia (Magnesium Hydroxide) 400 Mg/5 Ml Oral.susp 2,400 Mg PO PRN QHS PRN Zoloft (Sertraline Hcl) 25 Mg Tablet 25 Mg PO DAILY Vitamins ( Vits W-Ca,Fe,Fa(<1MG)) 1 Each Tablet 1 Tab PO DAILY Mirtazapine 7.5 Mg Tablet 15 Mg PO QHS Analgesic [place] (Methyl Salicylate/Menthol) 28 Gm Oint...g. 1 Darrel TP PRN QID PRN Maalox Advanced Suspension (Mag Hydrox/Aluminum Hyd/Simeth) 355 Ml Oral.susp 15 Ml PO PRN AFTMEALHC PRN Vitamin B-12 (Cyanocobalamin (Vitamin B-12)) 1,000 Mcg Tablet 1,000 Mcg PO DAILY Polyethylene Glycol 3350 255 Gm Powder 17 Gm PO PRN DAILY PRN Tylenol (Acetaminophen) 325 Mg Tablet 650 Mg PO PRN Q6HRS PRN Lorazepam 0.5 Mg Tablet 0.25 Mg PO PRN Q6HRS PRN Furosemide 40 Mg Tablet 40 Mg PO DAILY Klor-Con M20 (Potassium Chloride) 20 Meq Tab.er.prt 40 Meq PO DAILY Lisinopril 40 Mg Tablet 20 Mg PO DAILY Vitamin D3 (Cholecalciferol (Vitamin D3)) 1,000 Unit Tablet 1,000 Unit PO DAILY Aspirin 81 Mg Tab.chew 81 Mg PO DAILY Amiodarone Hcl 200 Mg Tablet 200 Mg PO DAILY Atorvastatin Calcium 10 Mg Tablet 10 Mg PO QHS Tamsulosin Hcl 0.4 Mg Cap.er.24h 0.4 Mg PO DAILY Melatonin 3 Mg Tablet 3 Mg PO HS Senokot (Sennosides) 8.6 Mg Tablet 8.6 Mg PO DAILY Carvedilol 12.5 Mg Tablet 12.5 Mg PO BIDWMEALS Divalproex Sodium 125 Mg Cap.sprink 375 Mg PO BID I have reviewed the current psychotropics carefully including drug interactions. Risk benefit ratio favors no change other than as noted in my dictated progress note. Diagnosis: Problems: (1) Dementia with behavioral disturbance (2) Anxiety disorder (3) Impulse control disorder (4) Dementia, vascular, with depression (5) Dementia, vascular, with delusions (6) Dementia in Alzheimer's disease with depression (7) Dementia in Alzheimer's disease with delusions JING ROSS MD Sep 10, 2017 20:05
[2017-09-10] MEDS: traZODone 50 MG TABLET. PO SCH (20:59)
[2017-09-11 06:52] VITALS: BP 130/70
[2017-09-11] MEDS: LISINOPRIL 10 MG TABLET PO SCH (07:51)
[2017-09-11] MEDS: PRENATAL MULTIVITAMIN TABLET. PO SCH (07:51)
[2017-09-11] MEDS: TAMSULOSIN 0.4 MG CAP.ER.24H. PO SCH (07:52)
[2017-09-11] MEDS: risperiDONE 0.25 MG TABLET. PO SCH ×3 (07:52→17:00)
[2017-09-11] MEDS: ASCORBIC ACID 500 MG TABLET PO SCH (07:52)
[2017-09-11] MEDS: AMIODARONE HCL 200 MG TABLET PO SCH (07:52)
[2017-09-11] MEDS: FUROSEMIDE 40 MG TABLET PO SCH (07:52)
[2017-09-11] MEDS: CYANOCOBALAMIN (VITAMIN B-12) 1,000 MCG TABLET. PO SCH (07:52)
[2017-09-11] MEDS: DIVALPROEX 125 MG CAP.SPRINK PO SCH ×2 (07:52→19:38)
[2017-09-11] MEDS: busPIRone 10 MG TABLET. PO SCH ×2 (07:53→14:00)
[2017-09-11] MEDS: SERTRALINE 50 MG TABLET. PO SCH (07:53)
[2017-09-11] MEDS: POTASSIUM CHLORIDE 20 MEQ TABLET.ER. PO SCH (07:53)
[2017-09-11] MEDS: CARVEDILOL 6.25 MG TABLET PO SCH ×2 (07:53→17:00)
[2017-09-11] MEDS: CHOLECALCIFEROL (VITAMIN D3) 1,000 UNIT TABLET PO SCH (07:53)
[2017-09-11] MEDS: ASPIRIN 81 MG TAB.CHEW PO SCH (07:53)
[2017-09-11] MEDS: SENNOSIDES 8.6 MG TABLET PO SCH (07:53)
--- NOTE | 2017-09-11 08:45 | PN ---
DATE: 09/09/2017 This is late entry 09/09, covers elements not covered in my initial note of 09/09. SUBJECTIVE: The patient remains confused, less agitated, aggressive. REVIEW OF SYSTEMS: No CV, , pulmonary, eye, ENT system symptoms on review. Reliability poor. MENTAL STATUS EXAM: Oriented to himself. Insight, judgment, recent and remote memory, attention, concentration, fund of knowledge poor, consistent with his diagnosis mentioned in my initial note. PLAN: Continue current psychotropics mentioned in my initial note. Check labs level on the Depakote. Risperdal 0.125 mg twice a day. Reviewed drug interactions. Risk/benefits ratio favors no further change. MAN Lucas ROSS MD DR: JERI/pedro JOB#: [id number] / [id number]
[2017-09-11 16:13] VITALS: BP 106/68
[2017-09-11] MEDS: traZODone 50 MG TABLET. PO SCH (19:38)
[2017-09-11] MEDS: ATORVASTATIN CALCIUM 10 MG TABLET. PO SCH (19:38)
[2017-09-11] MEDS: MELATONIN 3 MG TABLET PO SCH (19:38)
[2017-09-11] MEDS: MIRTAZAPINE 15 MG TABLET PO SCH (19:38)
--- NOTE | 2017-09-11 20:15 | PDOC ---
Exam Note: [place] Note: Please also refer to the separate dictated note~for this date of service dictated separately.~Patient seen individually. Discussed the patient with Nursing staff reviewed the chart.~Reviewed interim history and current functioning. Reviewed vital signs,~Labs/ Radiology~and current medications noted below. Continue current treatment with the changes noted in the dictated addendum note Assessment: Vital Signs: Vital Signs Date Time Temp Pulse Resp B/P (MAP) Pulse Ox O2 Delivery O2 Flow Rate FiO2 09/11/17 17:00 60 106/68 09/11/17 16:13 97.4 16 94 Room Air I&O Intake and Output 09/12/17 07:00 Intake Total 960 ml Balance 960 ml Intake Oral 960 ml Current Medications: Meds: Current Medications Acetaminophen (Tylenol) 650 mg PRN Q6HRS PRN PO PAIN / TEMP; Start 09/05/17 at 14:00 Multi-Ingredient Ointment (Analgesic [place]) 1 darrel PRN QID PRN TP MUSCLE PAIN; Start 09/05/17 at 14:00 Al Hydroxide/Mg Hydroxide (Mylanta Plus Xs) 15 ml PRN AFTMEALHC PRN PO DYSPEPSIA; Start 09/05/17 at 14:00 Magnesium Hydroxide (Milk Of Magnesia) 2,400 mg PRN QHS PRN PO CONSTIPATION; Start 09/05/17 at 14:00 Acetaminophen (Tylenol) 650 mg PRN Q6HRS PRN PO PAIN / TEMP; Start 09/05/17 at 15:00; Status Cancel Amiodarone HCl (Cordarone) 200 mg DAILY PO Last administered on 09/11/17 07: 52; Start 09/06/17 at 09:00 Ascorbic Acid (Vitamin C) 500 mg DAILY PO Last administered on 09/11/17 07:52 ; Start 09/06/17 at 09:00 Aspirin (Children'S Aspirin) 81 mg DAILY PO Last administered on 09/11/17 07: 53; Start 09/06/17 at 09:00 Atorvastatin Calcium (Lipitor) 10 mg QHS PO Last administered on 09/11/17 19: 38; Start 09/05/17 at 21:00 Carvedilol (Coreg) 12.5 mg BIDWMEALS PO Last administered on 09/05/17 17:40; Start 09/05/17 at 17:00; Stop 09/06/17 at 11:20; Status DC Vitamin D (Vitamin D3) 1,000 unit DAILY PO Last administered on 09/11/17 07: 53; Start 09/06/17 at 09:00 Cyanocobalamin (Vitamin B-12) 1,000 mcg DAILY PO Last administered on 07:52; Start 09/06/17 at 09:00 Divalproex Sodium (Depakote Sprinkles) 375 mg BID PO Last administered on 10:05; Start 09/05/17 at 21:00; Stop 09/07/17 at 17:38; Status DC Furosemide (Lasix) 40 mg DAILY PO Last administered on 09/11/17 07:52; Start 09/06/17 at 09:00 Lorazepam (Ativan) 0.25 mg PRN Q6HRS PRN PO ANXIETY / AGITATION; Start at 15:00 Magnesium Hydroxide (Milk Of Magnesia) 2,400 mg PRN QHS PRN PO CONSTIPATION; Start 09/05/17 at 15:00; Status Cancel Multi-Ingredient Ointment (Analgesic [place]) 1 darrel PRN QID PRN TP MUSCLE PAIN; Start 09/05/17 at 15:00; Status Cancel Mirtazapine (Remeron) 15 mg QHS PO Last administered on 09/11/17 19:38; Start 09/05/17 at 21:00 Polyethylene Glycol (miraLAX) 17 gm PRN DAILY PRN PO CONSTIPATION; Start at 09:00 Potassium Chloride (Klor-Con) 40 meq DAILY PO Last administered on 09/11/17 07:53; Start 09/06/17 at 09:00 Risperidone (RisperDAL) 0.5 mg PRN Q6HRS PRN PO AGITATION; Start 09/05/17 at 15 :00; Stop 09/07/17 at 15:49; Status DC Sennosides (Senna) 8.6 mg DAILY PO Last administered on 09/11/17 07:53; Start 09/06/17 at 09:00 Sertraline HCl (Zoloft) 25 mg DAILY PO Last administered on 09/06/17 10:25; Start 09/06/17 at 09:00; Stop 09/06/17 at 19:30; Status DC Tamsulosin HCl (Flomax) 0.4 mg DAILY PO Last administered on 09/11/17 07:52; Start 09/06/17 at 09:00 Lisinopril (Prinivil) 20 mg DAILY PO ; Start 09/06/17 at 09:00; Stop 09/06/17 at 11:20; Status DC Al Hydroxide/Mg Hydroxide (Mylanta Plus Xs) 15 ml PRN AFTMEALHC PRN PO DYSPEPSIA; Start 09/05/17 at 15:45; Status Cancel Melatonin 3 mg QHS PO Last administered on 09/11/17 19:38; Start 09/05/17 at 21:00 Prenat Multivit/ Quality Management Coordinator/Iron/Folic Ac (Multivitamin ) 1 tab DAILY PO Last administered on 09/11/17 07:51; Start 09/06/17 at 09:00 Olanzapine (ZyPREXA ZYDIS) 2.5 mg PRN Q2HR PRN PO AGITATION Last administered on 09/11/17 04:49; Start 09/05/17 at 17:30 Carvedilol (Coreg) 6.25 mg BIDWMEALS PO Last administered on 09/11/17 07:53; Start 09/06/17 at 17:00 Lisinopril (Prinivil) 10 mg DAILY PO Last administered on 09/11/17 07:51; Start 09/07/17 at 09:00 Quetiapine Fumarate (SEROquel) 12.5 mg BID92 PO ; Start 09/07/17 at 09:00; Stop 09/07/17 at 09:00; Status DC Sertraline HCl (Zoloft) 50 mg DAILY PO Last administered on 09/11/17 07:53; Start 09/07/17 at 09:00 Buspirone HCl (Buspar) 5 mg BID92 PO Last administered on 09/08/17 09:00; Start 09/07/17 at 09:00; Stop 09/08/17 at 12:03; Status DC Divalproex Sodium (Depakote Sprinkles) 500 mg BID PO Last administered on 09/10 17:27; Start 09/07/17 at 21:00; Stop 09/10/17 at 18:39; Status DC Buspirone HCl (Buspar) 10 mg BID92 PO Last administered on 09/11/17 14:00; Start 09/08/17 at 14:00 Risperidone (RisperDAL) 0.125 mg TID@0900,1400,1700 PO Last administered on 17:00; Start 09/09/17 at 09:00 Divalproex Sodium (Depakote Sprinkles) 625 mg BID PO Last administered on 09/11 19:38; Start 09/11/17 at 09:00 Trazodone HCl (Desyrel) 50 mg QHS PO Last administered on 09/11/17 19:38; Start 09/10/17 at 21:00 Trazodone HCl (Desyrel) 50 mg PRN QHS PRN PO INSOMNIA; Start 09/10/17 at 18:45 Active Scripts Active Reported Risperdal (Risperidone) 0.5 Mg Tablet 0.5 Mg PO PRN Q6HRS PRN Ascorbic Acid 500 Mg Tablet 500 Mg PO DAILY Milk Of Magnesia (Magnesium Hydroxide) 400 Mg/5 Ml Oral.susp 2,400 Mg PO PRN QHS PRN Zoloft (Sertraline Hcl) 25 Mg Tablet 25 Mg PO DAILY Vitamins ( Vits W-Ca,Fe,Fa(<1MG)) 1 Each Tablet 1 Tab PO DAILY Mirtazapine 7.5 Mg Tablet 15 Mg PO QHS Analgesic [place] (Methyl Salicylate/Menthol) 28 Gm Oint...g. 1 Darrel TP PRN QID PRN Maalox Advanced Suspension (Mag Hydrox/Aluminum Hyd/Simeth) 355 Ml Oral.susp 15 Ml PO PRN AFTMEALHC PRN Vitamin B-12 (Cyanocobalamin (Vitamin B-12)) 1,000 Mcg Tablet 1,000 Mcg PO DAILY Polyethylene Glycol 3350 255 Gm Powder 17 Gm PO PRN DAILY PRN Tylenol (Acetaminophen) 325 Mg Tablet 650 Mg PO PRN Q6HRS PRN Lorazepam 0.5 Mg Tablet 0.25 Mg PO PRN Q6HRS PRN Furosemide 40 Mg Tablet 40 Mg PO DAILY Klor-Con M20 (Potassium Chloride) 20 Meq Tab.er.prt 40 Meq PO DAILY Lisinopril 40 Mg Tablet 20 Mg PO DAILY Vitamin D3 (Cholecalciferol (Vitamin D3)) 1,000 Unit Tablet 1,000 Unit PO DAILY Aspirin 81 Mg Tab.chew 81 Mg PO DAILY Amiodarone Hcl 200 Mg Tablet 200 Mg PO DAILY Atorvastatin Calcium 10 Mg Tablet 10 Mg PO QHS Tamsulosin Hcl 0.4 Mg Cap.er.24h 0.4 Mg PO DAILY Melatonin 3 Mg Tablet 3 Mg PO HS Senokot (Sennosides) 8.6 Mg Tablet 8.6 Mg PO DAILY Carvedilol 12.5 Mg Tablet 12.5 Mg PO BIDWMEALS Divalproex Sodium 125 Mg Cap.sprink 375 Mg PO BID I have reviewed the current psychotropics carefully including drug interactions. Risk benefit ratio favors no change other than as noted in my dictated progress note. Diagnosis: Problems: (1) Dementia with behavioral disturbance (2) Anxiety disorder (3) Impulse control disorder (4) Dementia, vascular, with depression (5) Dementia, vascular, with delusions (6) Dementia in Alzheimer's disease with depression (7) Dementia in Alzheimer's disease with delusions JING ROSS MD Sep 11, 2017 20:15
[2017-09-12 06:06] VITALS: BP 129/77
[2017-09-12] MEDS: DIVALPROEX 125 MG CAP.SPRINK PO SCH ×2 (10:06→19:25)
[2017-09-12] MEDS: PRENATAL MULTIVITAMIN TABLET. PO SCH (10:06)
[2017-09-12] MEDS: CYANOCOBALAMIN (VITAMIN B-12) 1,000 MCG TABLET. PO SCH (10:06)
[2017-09-12] MEDS: ASPIRIN 81 MG TAB.CHEW PO SCH (10:07)
[2017-09-12] MEDS: risperiDONE 0.25 MG TABLET. PO SCH ×3 (10:07→17:02)
[2017-09-12] MEDS: SERTRALINE 50 MG TABLET. PO SCH (10:07)
[2017-09-12] MEDS: ASCORBIC ACID 500 MG TABLET PO SCH (10:07)
[2017-09-12] MEDS: AMIODARONE HCL 200 MG TABLET PO SCH (10:07)
[2017-09-12] MEDS: CARVEDILOL 6.25 MG TABLET PO SCH ×2 (10:08→17:02)
[2017-09-12] MEDS: POTASSIUM CHLORIDE 20 MEQ TABLET.ER. PO SCH (10:08)
[2017-09-12] MEDS: busPIRone 10 MG TABLET. PO SCH ×2 (10:08→14:51)
[2017-09-12] MEDS: TAMSULOSIN 0.4 MG CAP.ER.24H. PO SCH (10:09)
[2017-09-12] MEDS: SENNOSIDES 8.6 MG TABLET PO SCH (10:09)
[2017-09-12] MEDS: CHOLECALCIFEROL (VITAMIN D3) 1,000 UNIT TABLET PO SCH (10:09)
[2017-09-12] MEDS: FUROSEMIDE 40 MG TABLET PO SCH (10:09)
[2017-09-12] MEDS: LISINOPRIL 10 MG TABLET PO SCH (10:09)
[2017-09-12 16:10] VITALS: BP 129/73
[2017-09-12] MEDS: ATORVASTATIN CALCIUM 10 MG TABLET. PO SCH (19:25)
[2017-09-12] MEDS: traZODone 50 MG TABLET. PO SCH (19:25)
[2017-09-12] MEDS: MIRTAZAPINE 15 MG TABLET PO SCH (19:25)
[2017-09-12] MEDS: MELATONIN 3 MG TABLET PO SCH (19:25)
--- NOTE | 2017-09-12 20:07 | PDOC ---
Exam Note: [place] Note: Please also refer to the separate dictated note~for this date of service dictated separately.~Patient seen individually. Discussed the patient with Nursing staff reviewed the chart.~Reviewed interim history and current functioning. Reviewed vital signs,~Labs/ Radiology~and current medications noted below. Continue current treatment with the changes noted in the dictated addendum note Assessment: Vital Signs: Vital Signs Date Time Temp Pulse Resp B/P (MAP) Pulse Ox O2 Delivery O2 Flow Rate FiO2 09/12/17 17:02 60 129/73 09/12/17 16:10 97.2 18 96 09/11/17 16:13 Room Air I&O Intake and Output 09/12/17 07:00 Intake Total 1080 ml Balance 1080 ml Intake Oral 1080 ml # Voids 1 Current Medications: Meds: Current Medications Acetaminophen (Tylenol) 650 mg PRN Q6HRS PRN PO PAIN / TEMP; Start 09/05/17 at 14:00 Multi-Ingredient Ointment (Analgesic [place]) 1 darrel PRN QID PRN TP MUSCLE PAIN; Start 09/05/17 at 14:00 Al Hydroxide/Mg Hydroxide (Mylanta Plus Xs) 15 ml PRN AFTMEALHC PRN PO DYSPEPSIA; Start 09/05/17 at 14:00 Magnesium Hydroxide (Milk Of Magnesia) 2,400 mg PRN QHS PRN PO CONSTIPATION; Start 09/05/17 at 14:00 Acetaminophen (Tylenol) 650 mg PRN Q6HRS PRN PO PAIN / TEMP; Start 09/05/17 at 15:00; Status Cancel Amiodarone HCl (Cordarone) 200 mg DAILY PO Last administered on 09/12/17 10: 07; Start 09/06/17 at 09:00 Ascorbic Acid (Vitamin C) 500 mg DAILY PO Last administered on 09/12/17 10:07 ; Start 09/06/17 at 09:00 Aspirin (Children'S Aspirin) 81 mg DAILY PO Last administered on 09/12/17 10: 07; Start 09/06/17 at 09:00 Atorvastatin Calcium (Lipitor) 10 mg QHS PO Last administered on 09/12/17 19: 25; Start 09/05/17 at 21:00 Carvedilol (Coreg) 12.5 mg BIDWMEALS PO Last administered on 09/05/17 17:40; Start 09/05/17 at 17:00; Stop 09/06/17 at 11:20; Status DC Vitamin D (Vitamin D3) 1,000 unit DAILY PO Last administered on 09/12/17 10: 09; Start 09/06/17 at 09:00 Cyanocobalamin (Vitamin B-12) 1,000 mcg DAILY PO Last administered on 10:06; Start 09/06/17 at 09:00 Divalproex Sodium (Depakote Sprinkles) 375 mg BID PO Last administered on 10:05; Start 09/05/17 at 21:00; Stop 09/07/17 at 17:38; Status DC Furosemide (Lasix) 40 mg DAILY PO Last administered on 09/12/17 10:09; Start 09/06/17 at 09:00 Lorazepam (Ativan) 0.25 mg PRN Q6HRS PRN PO ANXIETY / AGITATION; Start at 15:00 Magnesium Hydroxide (Milk Of Magnesia) 2,400 mg PRN QHS PRN PO CONSTIPATION; Start 09/05/17 at 15:00; Status Cancel Multi-Ingredient Ointment (Analgesic [place]) 1 darrel PRN QID PRN TP MUSCLE PAIN; Start 09/05/17 at 15:00; Status Cancel Mirtazapine (Remeron) 15 mg QHS PO Last administered on 09/12/17 19:25; Start 09/05/17 at 21:00 Polyethylene Glycol (miraLAX) 17 gm PRN DAILY PRN PO CONSTIPATION; Start at 09:00 Potassium Chloride (Klor-Con) 40 meq DAILY PO Last administered on 09/12/17 10:08; Start 09/06/17 at 09:00 Risperidone (RisperDAL) 0.5 mg PRN Q6HRS PRN PO AGITATION; Start 09/05/17 at 15 :00; Stop 09/07/17 at 15:49; Status DC Sennosides (Senna) 8.6 mg DAILY PO Last administered on 09/12/17 10:09; Start 09/06/17 at 09:00 Sertraline HCl (Zoloft) 25 mg DAILY PO Last administered on 09/06/17 10:25; Start 09/06/17 at 09:00; Stop 09/06/17 at 19:30; Status DC Tamsulosin HCl (Flomax) 0.4 mg DAILY PO Last administered on 09/12/17 10:09; Start 09/06/17 at 09:00 Lisinopril (Prinivil) 20 mg DAILY PO ; Start 09/06/17 at 09:00; Stop 09/06/17 at 11:20; Status DC Al Hydroxide/Mg Hydroxide (Mylanta Plus Xs) 15 ml PRN AFTMEALHC PRN PO DYSPEPSIA; Start 09/05/17 at 15:45; Status Cancel Melatonin 3 mg QHS PO Last administered on 09/12/17 19:25; Start 09/05/17 at 21:00 Prenat Multivit/ [place]/Iron/Folic Ac (Multivitamin ) 1 tab DAILY PO Last administered on 09/12/17 10:06; Start 09/06/17 at 09:00 Olanzapine (ZyPREXA ZYDIS) 2.5 mg PRN Q2HR PRN PO AGITATION Last administered on 09/11/17 04:49; Start 09/05/17 at 17:30 Carvedilol (Coreg) 6.25 mg BIDWMEALS PO Last administered on 09/12/17 17:02; Start 09/06/17 at 17:00 Lisinopril (Prinivil) 10 mg DAILY PO Last administered on 09/12/17 10:09; Start 09/07/17 at 09:00 Quetiapine Fumarate (SEROquel) 12.5 mg BID92 PO ; Start 09/07/17 at 09:00; Stop 09/07/17 at 09:00; Status DC Sertraline HCl (Zoloft) 50 mg DAILY PO Last administered on 09/12/17 10:07; Start 09/07/17 at 09:00 Buspirone HCl (Buspar) 5 mg BID92 PO Last administered on 09/08/17 09:00; Start 09/07/17 at 09:00; Stop 09/08/17 at 12:03; Status DC Divalproex Sodium (Depakote Sprinkles) 500 mg BID PO Last administered on 09/10 17:27; Start 09/07/17 at 21:00; Stop 09/10/17 at 18:39; Status DC Buspirone HCl (Buspar) 10 mg BID92 PO Last administered on 09/12/17 14:51; Start 09/08/17 at 14:00 Risperidone (RisperDAL) 0.125 mg TID@0900,1400,1700 PO Last administered on 17:02; Start 09/09/17 at 09:00 Divalproex Sodium (Depakote Sprinkles) 625 mg BID PO Last administered on 09/12 19:25; Start 09/11/17 at 09:00 Trazodone HCl (Desyrel) 50 mg QHS PO Last administered on 09/12/17 19:25; Start 09/10/17 at 21:00 Trazodone HCl (Desyrel) 50 mg PRN QHS PRN PO INSOMNIA; Start 09/10/17 at 18:45 Active Scripts Active Reported Risperdal (Risperidone) 0.5 Mg Tablet 0.5 Mg PO PRN Q6HRS PRN Ascorbic Acid 500 Mg Tablet 500 Mg PO DAILY Milk Of Magnesia (Magnesium Hydroxide) 400 Mg/5 Ml Oral.susp 2,400 Mg PO PRN QHS PRN Zoloft (Sertraline Hcl) 25 Mg Tablet 25 Mg PO DAILY Vitamins ( Vits W-Ca,Fe,Fa(<1MG)) 1 Each Tablet 1 Tab PO DAILY Mirtazapine 7.5 Mg Tablet 15 Mg PO QHS Analgesic [place] (Methyl Salicylate/Menthol) 28 Gm Oint...g. 1 Darrel TP PRN QID PRN Maalox Advanced Suspension (Mag Hydrox/Aluminum Hyd/Simeth) 355 Ml Oral.susp 15 Ml PO PRN AFTMEALHC PRN Vitamin B-12 (Cyanocobalamin (Vitamin B-12)) 1,000 Mcg Tablet 1,000 Mcg PO DAILY Polyethylene Glycol 3350 255 Gm Powder 17 Gm PO PRN DAILY PRN Tylenol (Acetaminophen) 325 Mg Tablet 650 Mg PO PRN Q6HRS PRN Lorazepam 0.5 Mg Tablet 0.25 Mg PO PRN Q6HRS PRN Furosemide 40 Mg Tablet 40 Mg PO DAILY Klor-Con M20 (Potassium Chloride) 20 Meq Tab.er.prt 40 Meq PO DAILY Lisinopril 40 Mg Tablet 20 Mg PO DAILY Vitamin D3 (Cholecalciferol (Vitamin D3)) 1,000 Unit Tablet 1,000 Unit PO DAILY Aspirin 81 Mg Tab.chew 81 Mg PO DAILY Amiodarone Hcl 200 Mg Tablet 200 Mg PO DAILY Atorvastatin Calcium 10 Mg Tablet 10 Mg PO QHS Tamsulosin Hcl 0.4 Mg Cap.er.24h 0.4 Mg PO DAILY Melatonin 3 Mg Tablet 3 Mg PO HS Senokot (Sennosides) 8.6 Mg Tablet 8.6 Mg PO DAILY Carvedilol 12.5 Mg Tablet 12.5 Mg PO BIDWMEALS Divalproex Sodium 125 Mg Cap.sprink 375 Mg PO BID I have reviewed the current psychotropics carefully including drug interactions. Risk benefit ratio favors no change other than as noted in my dictated progress note. Diagnosis: Problems: (1) Dementia with behavioral disturbance (2) Anxiety disorder (3) Impulse control disorder (4) Dementia, vascular, with depression (5) Dementia, vascular, with delusions (6) Dementia in Alzheimer's disease with depression (7) Dementia in Alzheimer's disease with delusions JING ROSS MD Sep 12, 2017 20:07
--- NOTE | 2017-09-13 05:01 | PN ---
DATE: 09/10/2017 PSYCHIATRIC PROGRESS NOTE This late entry 09/10/2017 covers elements not covered in my initial note of 09/10/2017. I met with the patient in the evening of 09/10/2017. The patient slept 4 hours the previous evening, irritable in the morning, labile, took his meds in ice cream, did take his medications when his visited him, was cooperative with 4:00 p.m. vitals. Valproic acid level is 46. REVIEW OF SYSTEMS: No CV, , pulmonary, eye, ENT system symptoms on review. Reliability poor. MENTAL STATUS EXAM: Oriented to himself. Insight, judgment, recent and remote memory, attention, concentration, fund of knowledge poor, consistent with his diagnosis mentioned in my initial note. PLAN: Start trazodone 50 mg at bedtime schedule, may repeat x 1 p.r.n. insomnia. Valproic acid level subtherapeutic at 46, increase Depakote from 500 mg b.i.d. to 625 mg b.i.d. Check CBC, CMP, valproic acid level in 3 days. Maintain the rest of the psychotropics mentioned in my initial note. MAN Lucas ROSS MD DR: JERI/pedro JOB#: [id number] / [id number]
[2017-09-13 05:56] VITALS: BP 112/60
[2017-09-13] MEDS: risperiDONE 0.25 MG TABLET. PO SCH ×3 (08:11→18:15)
[2017-09-13] MEDS: FUROSEMIDE 40 MG TABLET PO SCH (08:12)
[2017-09-13] MEDS: busPIRone 10 MG TABLET. PO SCH ×2 (08:12→12:53)
[2017-09-13] MEDS: DIVALPROEX 125 MG CAP.SPRINK PO SCH ×2 (08:12→19:24)
[2017-09-13] MEDS: SERTRALINE 50 MG TABLET. PO SCH (08:12)
[2017-09-13] MEDS: ASPIRIN 81 MG TAB.CHEW PO SCH (08:12)
[2017-09-13] MEDS: SENNOSIDES 8.6 MG TABLET PO SCH (08:12)
[2017-09-13] MEDS: TAMSULOSIN 0.4 MG CAP.ER.24H. PO SCH (08:12)
[2017-09-13] MEDS: AMIODARONE HCL 200 MG TABLET PO SCH (08:13)
[2017-09-13] MEDS: LISINOPRIL 10 MG TABLET PO SCH (08:13)
[2017-09-13] MEDS: CARVEDILOL 6.25 MG TABLET PO SCH ×2 (08:13→18:14)
[2017-09-13] MEDS: PRENATAL MULTIVITAMIN TABLET. PO SCH (08:15)
[2017-09-13] MEDS: CHOLECALCIFEROL (VITAMIN D3) 1,000 UNIT TABLET PO SCH (08:16)
[2017-09-13] MEDS: POTASSIUM CHLORIDE 20 MEQ TABLET.ER. PO SCH (08:16)
[2017-09-13] MEDS: CYANOCOBALAMIN (VITAMIN B-12) 1,000 MCG TABLET. PO SCH (08:16)
[2017-09-13] MEDS: ASCORBIC ACID 500 MG TABLET PO SCH (08:16)
--- NOTE | 2017-09-13 08:17 | PN ---
DATE: 09/11/2017 PSYCHIATRIC PROGRESS NOTE This late entry date of service 09/11/2017 covers elements, not covered in my initial note of 09/11/2017. SUBJECTIVE: The patient was seen individually evening of 09/11/2017. He slept 6-3/4 hours previous evening. In the previous evening, he was combative with staff, up at 4:15 a.m. in the morning, agitated, received Zyprexa, Zydis, which seemed to help. He does have some scrapes on his back, not on his head, but no injuries were witnessed per nursing staff. We will defer to Dr. Mazariegos/Dr Morton. MENTAL STATUS EXAM: Oriented to himself. Insight, judgment, recent and remote memory, attention, concentration, fund of knowledge poor, consistent with his diagnosis mentioned in my initial note. PLAN: Continue psychotropics mentioned in my initial note. Reviewed drug contractions. Risk/benefit ratio favors no further change. MAN Lucas ROSS MD DR: JERI/pedro JOB#: [id number] / [id number]
[2017-09-13 16:41] VITALS: BP 119/67
[2017-09-13] MEDS: traZODone 50 MG TABLET. PO SCH (19:24)
[2017-09-13] MEDS: ATORVASTATIN CALCIUM 10 MG TABLET. PO SCH (19:24)
[2017-09-13] MEDS: MIRTAZAPINE 15 MG TABLET PO SCH (19:24)
[2017-09-13] MEDS: MELATONIN 3 MG TABLET PO SCH (19:24)
--- NOTE | 2017-09-13 19:51 | PDOC ---
Exam Note: [place]ard Note: Please also refer to the separate dictated note~for this date of service dictated separately.~Patient seen individually. Discussed the patient with Nursing staff reviewed the chart.~Reviewed interim history and current functioning. Reviewed vital signs,~Labs/ Radiology~and current medications noted below. Continue current treatment with the changes noted in the dictated addendum note Assessment: Vital Signs: Vital Signs Date Time Temp Pulse Resp B/P (MAP) Pulse Ox O2 Delivery O2 Flow Rate FiO2 09/13/17 18:14 59 119/67 09/13/17 16:41 98.4 18 93 09/11/17 16:13 Room Air I&O Intake and Output 09/13/17 07:00 Intake Total 600 ml Balance 600 ml Intake Oral 600 ml Current Medications: Meds: Current Medications Acetaminophen (Tylenol) 650 mg PRN Q6HRS PRN PO PAIN / TEMP; Start 09/05/17 at 14:00 Multi-Ingredient Ointment (Analgesic Douglas) 1 darrel PRN QID PRN TP MUSCLE PAIN; Start 09/05/17 at 14:00 Al Hydroxide/Mg Hydroxide (Mylanta Plus Xs) 15 ml PRN AFTMEALHC PRN PO DYSPEPSIA; Start 09/05/17 at 14:00 Magnesium Hydroxide (Milk Of Magnesia) 2,400 mg PRN QHS PRN PO CONSTIPATION; Start 09/05/17 at 14:00 Acetaminophen (Tylenol) 650 mg PRN Q6HRS PRN PO PAIN / TEMP; Start 09/05/17 at 15:00; Status Cancel Amiodarone HCl (Cordarone) 200 mg DAILY PO Last administered on 09/13/17 08: 13; Start 09/06/17 at 09:00 Ascorbic Acid (Vitamin C) 500 mg DAILY PO Last administered on 09/13/17 08:16 ; Start 09/06/17 at 09:00 Aspirin (Children'S Aspirin) 81 mg DAILY PO Last administered on 09/13/17 08: 12; Start 09/06/17 at 09:00 Atorvastatin Calcium (Lipitor) 10 mg QHS PO Last administered on 09/13/17 19: 24; Start 09/05/17 at 21:00 Carvedilol (Coreg) 12.5 mg BIDWMEALS PO Last administered on 09/05/17 17:40; Start 09/05/17 at 17:00; Stop 09/06/17 at 11:20; Status DC Vitamin D (Vitamin D3) 1,000 unit DAILY PO Last administered on 09/13/17 08: 16; Start 09/06/17 at 09:00 Cyanocobalamin (Vitamin B-12) 1,000 mcg DAILY PO Last administered on 08:16; Start 09/06/17 at 09:00 Divalproex Sodium (Depakote Sprinkles) 375 mg BID PO Last administered on 10:05; Start 09/05/17 at 21:00; Stop 09/07/17 at 17:38; Status DC Furosemide (Lasix) 40 mg DAILY PO Last administered on 09/13/17 08:12; Start 09/06/17 at 09:00 Lorazepam (Ativan) 0.25 mg PRN Q6HRS PRN PO ANXIETY / AGITATION; Start at 15:00 Magnesium Hydroxide (Milk Of Magnesia) 2,400 mg PRN QHS PRN PO CONSTIPATION; Start 09/05/17 at 15:00; Status Cancel Multi-Ingredient Ointment (Analgesic Douglas) 1 darrel PRN QID PRN TP MUSCLE PAIN; Start 09/05/17 at 15:00; Status Cancel Mirtazapine (Remeron) 15 mg QHS PO Last administered on 09/13/17 19:24; Start 09/05/17 at 21:00 Polyethylene Glycol (miraLAX) 17 gm PRN DAILY PRN PO CONSTIPATION; Start at 09:00 Potassium Chloride (Klor-Con) 40 meq DAILY PO Last administered on 09/13/17 08:16; Start 09/06/17 at 09:00 Risperidone (RisperDAL) 0.5 mg PRN Q6HRS PRN PO AGITATION; Start 09/05/17 at 15 :00; Stop 09/07/17 at 15:49; Status DC Sennosides (Senna) 8.6 mg DAILY PO Last administered on 09/13/17 08:12; Start 09/06/17 at 09:00 Sertraline HCl (Zoloft) 25 mg DAILY PO Last administered on 09/06/17 10:25; Start 09/06/17 at 09:00; Stop 09/06/17 at 19:30; Status DC Tamsulosin HCl (Flomax) 0.4 mg DAILY PO Last administered on 09/13/17 08:12; Start 09/06/17 at 09:00 Lisinopril (Prinivil) 20 mg DAILY PO ; Start 09/06/17 at 09:00; Stop 09/06/17 at 11:20; Status DC Al Hydroxide/Mg Hydroxide (Mylanta Plus Xs) 15 ml PRN AFTMEALHC PRN PO DYSPEPSIA; Start 09/05/17 at 15:45; Status Cancel Melatonin 3 mg QHS PO Last administered on 09/13/17 19:24; Start 09/05/17 at 21:00 Prenat Multivit/ Cassia/Iron/Folic Ac (Multivitamin ) 1 tab DAILY PO Last administered on 09/13/17 08:15; Start 09/06/17 at 09:00 Olanzapine (ZyPREXA ZYDIS) 2.5 mg PRN Q2HR PRN PO AGITATION Last administered on 09/11/17 04:49; Start 09/05/17 at 17:30 Carvedilol (Coreg) 6.25 mg BIDWMEALS PO Last administered on 09/13/17 18:14; Start 09/06/17 at 17:00 Lisinopril (Prinivil) 10 mg DAILY PO Last administered on 09/13/17 08:13; Start 09/07/17 at 09:00 Quetiapine Fumarate (SEROquel) 12.5 mg BID92 PO ; Start 09/07/17 at 09:00; Stop 09/07/17 at 09:00; Status DC Sertraline HCl (Zoloft) 50 mg DAILY PO Last administered on 09/13/17 08:12; Start 09/07/17 at 09:00 Buspirone HCl (Buspar) 5 mg BID92 PO Last administered on 09/08/17 09:00; Start 09/07/17 at 09:00; Stop 09/08/17 at 12:03; Status DC Divalproex Sodium (Depakote Sprinkles) 500 mg BID PO Last administered on 09/10 17:27; Start 09/07/17 at 21:00; Stop 09/10/17 at 18:39; Status DC Buspirone HCl (Buspar) 10 mg BID92 PO Last administered on 09/13/17 12:53; Start 09/08/17 at 14:00 Risperidone (RisperDAL) 0.125 mg TID@0900,1400,1700 PO Last administered on 18:15; Start 09/09/17 at 09:00 Divalproex Sodium (Depakote Sprinkles) 625 mg BID PO Last administered on 09/13 19:24; Start 09/11/17 at 09:00 Trazodone HCl (Desyrel) 50 mg QHS PO Last administered on 09/13/17 19:24; Start 09/10/17 at 21:00 Trazodone HCl (Desyrel) 50 mg PRN QHS PRN PO INSOMNIA; Start 09/10/17 at 18:45 Active Scripts Active Reported Risperdal (Risperidone) 0.5 Mg Tablet 0.5 Mg PO PRN Q6HRS PRN Ascorbic Acid 500 Mg Tablet 500 Mg PO DAILY Milk Of Magnesia (Magnesium Hydroxide) 400 Mg/5 Ml Oral.susp 2,400 Mg PO PRN QHS PRN Zoloft (Sertraline Hcl) 25 Mg Tablet 25 Mg PO DAILY Vitamins ( Vits W-Ca,Fe,Fa(<1MG)) 1 Each Tablet 1 Tab PO DAILY Mirtazapine 7.5 Mg Tablet 15 Mg PO QHS Analgesic Douglas (Methyl Salicylate/Menthol) 28 Gm Oint...g. 1 Darrel TP PRN QID PRN Maalox Advanced Suspension (Mag Hydrox/Aluminum Hyd/Simeth) 355 Ml Oral.susp 15 Ml PO PRN AFTMEALHC PRN Vitamin B-12 (Cyanocobalamin (Vitamin B-12)) 1,000 Mcg Tablet 1,000 Mcg PO DAILY Polyethylene Glycol 3350 255 Gm Powder 17 Gm PO PRN DAILY PRN Tylenol (Acetaminophen) 325 Mg Tablet 650 Mg PO PRN Q6HRS PRN Lorazepam 0.5 Mg Tablet 0.25 Mg PO PRN Q6HRS PRN Furosemide 40 Mg Tablet 40 Mg PO DAILY Klor-Con M20 (Potassium Chloride) 20 Meq Tab.er.prt 40 Meq PO DAILY Lisinopril 40 Mg Tablet 20 Mg PO DAILY Vitamin D3 (Cholecalciferol (Vitamin D3)) 1,000 Unit Tablet 1,000 Unit PO DAILY Aspirin 81 Mg Tab.chew 81 Mg PO DAILY Amiodarone Hcl 200 Mg Tablet 200 Mg PO DAILY Atorvastatin Calcium 10 Mg Tablet 10 Mg PO QHS Tamsulosin Hcl 0.4 Mg Cap.er.24h 0.4 Mg PO DAILY Melatonin 3 Mg Tablet 3 Mg PO HS Senokot (Sennosides) 8.6 Mg Tablet 8.6 Mg PO DAILY Carvedilol 12.5 Mg Tablet 12.5 Mg PO BIDWMEALS Divalproex Sodium 125 Mg Cap.sprink 375 Mg PO BID I have reviewed the current psychotropics carefully including drug interactions. Risk benefit ratio favors no change other than as noted in my dictated progress note. Diagnosis: Problems: (1) Dementia with behavioral disturbance (2) Anxiety disorder (3) Impulse control disorder (4) Dementia, vascular, with depression (5) Dementia, vascular, with delusions (6) Dementia in Alzheimer's disease with depression (7) Dementia in Alzheimer's disease with delusions JING ROSS MD Sep 13, 2017 19:51
[2017-09-14 05:41] VITALS: BP 121/73
[2017-09-14] MEDS: DIVALPROEX 125 MG CAP.SPRINK PO SCH ×2 (08:09→19:26)
[2017-09-14] MEDS: LISINOPRIL 10 MG TABLET PO SCH (08:10)
[2017-09-14] MEDS: CARVEDILOL 6.25 MG TABLET PO SCH ×2 (08:10→16:43)
[2017-09-14] MEDS: AMIODARONE HCL 200 MG TABLET PO SCH (08:10)
[2017-09-14] MEDS: risperiDONE 0.25 MG TABLET. PO SCH ×3 (08:10→17:28)
[2017-09-14] MEDS: FUROSEMIDE 40 MG TABLET PO SCH (08:11)
[2017-09-14] MEDS: TAMSULOSIN 0.4 MG CAP.ER.24H. PO SCH (08:11)
[2017-09-14] MEDS: SENNOSIDES 8.6 MG TABLET PO SCH (08:11)
[2017-09-14] MEDS: busPIRone 10 MG TABLET. PO SCH ×2 (08:11→12:31)
[2017-09-14] MEDS: SERTRALINE 50 MG TABLET. PO SCH (08:11)
--- NOTE | 2017-09-14 08:50 | PN ---
DATE: 09/12/2017 PSYCHIATRIC PROGRESS NOTE This is a late entry 09/12/2017, covers elements not covered in my initial note 09/12/2017. SUBJECTIVE: I met with the patient the evening of 09/12/2017. The patient remains confused, has not been combative. He is more redirectable, wandering. REVIEW OF SYSTEMS: No CV, , pulmonary, eye, ENT system symptoms on review. Gait somewhat unsteady. MENTAL STATUS EXAM: Oriented to himself. Insight, judgment, recent and remote memory, attention, concentration, fund of knowledge poor, consistent with his diagnoses. I met with the patient evening of 09/12/2017. Diagnoses unchanged from initial note. PLAN: Continue psychotropics mentioned in my initial note. MAN Lucas ROSS MD DR: JERI/pedro JOB#: [id number] / [id number]
[2017-09-14] MEDS: ASCORBIC ACID 500 MG TABLET PO SCH (09:16)
[2017-09-14] MEDS: CYANOCOBALAMIN (VITAMIN B-12) 1,000 MCG TABLET. PO SCH (09:16)
[2017-09-14] MEDS: CHOLECALCIFEROL (VITAMIN D3) 1,000 UNIT TABLET PO SCH (09:16)
[2017-09-14] MEDS: PRENATAL MULTIVITAMIN TABLET. PO SCH (09:16)
[2017-09-14] MEDS: ASPIRIN 81 MG TAB.CHEW PO SCH (09:16)
[2017-09-14] MEDS: POTASSIUM CHLORIDE 20 MEQ TABLET.ER. PO SCH (09:16)
[2017-09-14 09:47] LABS: ALBUMIN/GLOBULIN RATIO 0.7 (1.0-1.7); ALK PHOS 94 U/L (46-116); ALT (SGPT) 21 U/L (16-63); ANION GAP 7 (6-14); AST (SGOT) 25 U/L (15-37); BLOOD UREA NITROGEN 33 mg/dL (8-26); BUN/CREATININE RATIO 28 (6-20); CARBON DIOXIDE 28 mmol/L (21-32); CHLORIDE 111 mmol/L (98-107); CREATININE 1.2 mg/dL (0.7-1.3); GFR 57.8; GLUCOSE 89 mg/dL (70-99); POTASSIUM 3.8 mmol/L (3.5-5.1); SODIUM 146 mmol/L (136-145); TOTAL BILIRUBIN 0.6 mg/dL (0.2-1.0); TOTAL PROTEIN 7.3 g/dL (6.4-8.2)
[2017-09-14 09:48] LABS: BASO % 1 % (0-3); EOS # 0.2 x10^3/uL (0.0-0.7); EOS % 3 % (0-3); HEMATOCRIT 35.8 % (39.0-53.0); HEMOGLOBIN 12.3 g/dL (13.0-17.5); LYMPH # 1.9 x10^3/uL (1.0-4.8); LYMPH % 29 % (24-48); MEAN CORPUSCULAR HEMOGLOBIN 38 pg (25-35); MEAN CORPUSCULAR HGB CONC 35 g/dL (31-37); MEAN CORPUSCULAR VOLUME 110 fL (79-100); MONO # 0.6 x10^3/uL (0.0-1.1); MONO % 9 % (0-9); NEUT # 3.9 x10^3uL (1.8-7.7); NEUT % 59 % (31-73); PLATELET COUNT 151 x10^3/uL (140-400); RED BLOOD COUNT 3.25 x10^6/uL (4.30-5.70); RED CELL DISTRIBUTION WIDTH 14.8 % (11.5-14.5); VAL ACID 81 mcg/mL (50-100); WHITE BLOOD COUNT 6.7 x10^3/uL (4.0-11.0)
[2017-09-14 16:01] VITALS: BP 94/59
[2017-09-14] MEDS: MELATONIN 3 MG TABLET PO SCH (19:25)
[2017-09-14] MEDS: ATORVASTATIN CALCIUM 10 MG TABLET. PO SCH (19:25)
[2017-09-14] MEDS: MIRTAZAPINE 15 MG TABLET PO SCH (19:25)
[2017-09-14] MEDS: traZODone 50 MG TABLET. PO SCH (19:26)
--- NOTE | 2017-09-14 19:58 | PDOC ---
Exam Note: [place]ard Note: Please also refer to the separate dictated note~for this date of service dictated separately.~Patient seen individually. Discussed the patient with Nursing staff reviewed the chart.~Reviewed interim history and current functioning. Reviewed vital signs,~Labs/ Radiology~and current medications noted below. Continue current treatment with the changes noted in the dictated addendum note Assessment: Vital Signs: Vital Signs Date Time Temp Pulse Resp B/P (MAP) Pulse Ox O2 Delivery O2 Flow Rate FiO2 09/14/17 16:43 62 94/59 09/14/17 16:01 97.1 20 95 09/11/17 16:13 Room Air I&O Intake and Output 09/14/17 07:00 Intake Total 1320 ml Balance 1320 ml Intake Oral 1320 ml # Bowel Movements 1 Labs: Laboratory Tests Test 09/14/17 09:11 White Blood Count 6.7 x10^3/uL (4.0-11.0) Red Blood Count 3.25 x10^6/uL (4.30-5.70) L Hemoglobin 12.3 g/dL (13.0-17.5) L Hematocrit 35.8 % (39.0-53.0) L Mean Corpuscular Volume 110 fL (79-100) H Mean Corpuscular Hemoglobin 38 pg (25-35) H Mean Corpuscular Hemoglobin Concent 35 g/dL (31-37) Red Cell Distribution Width 14.8 % (11.5-14.5) H Platelet Count 151 x10^3/uL (140-400) Neutrophils (%) (Auto) 59 % (31-73) Lymphocytes (%) (Auto) 29 % (24-48) Monocytes (%) (Auto) 9 % (0-9) Eosinophils (%) (Auto) 3 % (0-3) Basophils (%) (Auto) 1 % (0-3) Neutrophils # (Auto) 3.9 x10^3uL (1.8-7.7) Lymphocytes # (Auto) 1.9 x10^3/uL (1.0-4.8) Monocytes # (Auto) 0.6 x10^3/uL (0.0-1.1) Eosinophils # (Auto) 0.2 x10^3/uL (0.0-0.7) Basophils # (Auto) 0.0 x10^3/uL (0.0-0.2) Sodium Level 146 mmol/L (136-145) H Potassium Level 3.8 mmol/L (3.5-5.1) Chloride Level 111 mmol/L (98-107) H Carbon Dioxide Level 28 mmol/L (21-32) Anion Gap 7 (6-14) Blood Urea Nitrogen 33 mg/dL (8-26) H Creatinine 1.2 mg/dL (0.7-1.3) Estimated GFR (Cockcroft-Gault) 57.8 BUN/Creatinine Ratio 28 (6-20) H Glucose Level 89 mg/dL (70-99) Calcium Level 9.0 mg/dL (8.5-10.1) Total Bilirubin 0.6 mg/dL (0.2-1.0) Aspartate Amino Transferase (AST) 25 U/L (15-37) Alanine Aminotransferase (ALT) 21 U/L (16-63) Alkaline Phosphatase 94 U/L (46-116) Total Protein 7.3 g/dL (6.4-8.2) Albumin 3.0 g/dL (3.4-5.0) L Albumin/Globulin Ratio 0.7 (1.0-1.7) L Valproic Acid Level 81 mcg/mL (50-100) Valproic Acid Last Dose Date 09/13/17 Valproic Acid Last Dose Time 2100 Current Medications: Meds: Current Medications Acetaminophen (Tylenol) 650 mg PRN Q6HRS PRN PO PAIN / TEMP; Start 09/05/17 at 14:00 Multi-Ingredient Ointment (Analgesic Pierce) 1 darrel PRN QID PRN TP MUSCLE PAIN; Start 09/05/17 at 14:00 Al Hydroxide/Mg Hydroxide (Mylanta Plus Xs) 15 ml PRN AFTMEALHC PRN PO DYSPEPSIA; Start 09/05/17 at 14:00 Magnesium Hydroxide (Milk Of Magnesia) 2,400 mg PRN QHS PRN PO CONSTIPATION; Start 09/05/17 at 14:00 Acetaminophen (Tylenol) 650 mg PRN Q6HRS PRN PO PAIN / TEMP; Start 09/05/17 at 15:00; Status Cancel Amiodarone HCl (Cordarone) 200 mg DAILY PO Last administered on 09/14/17t 08: 10; Start 09/06/17 at 09:00 Ascorbic Acid (Vitamin C) 500 mg DAILY PO Last administered on 09/14/17 09:16 ; Start 09/06/17 at 09:00 Aspirin (Children'S Aspirin) 81 mg DAILY PO Last administered on 09/14/17 09: 16; Start 09/06/17 at 09:00 Atorvastatin Calcium (Lipitor) 10 mg QHS PO Last administered on 09/14/17 19: 25; Start 09/05/17 at 21:00 Carvedilol (Coreg) 12.5 mg BIDWMEALS PO Last administered on 09/05/17 17:40; Start 09/05/17 at 17:00; Stop 09/06/17 at 11:20; Status DC Vitamin D (Vitamin D3) 1,000 unit DAILY PO Last administered on 09/14/17 09: 16; Start 09/06/17 at 09:00 Cyanocobalamin (Vitamin B-12) 1,000 mcg DAILY PO Last administered on 09:16; Start 09/06/17 at 09:00 Divalproex Sodium (Depakote Sprinkles) 375 mg BID PO Last administered on 10:05; Start 09/05/17 at 21:00; Stop 09/07/17 at 17:38; Status DC Furosemide (Lasix) 40 mg DAILY PO Last administered on 09/14/17 08:11; Start 09/06/17 at 09:00 Lorazepam (Ativan) 0.25 mg PRN Q6HRS PRN PO ANXIETY / AGITATION; Start at 15:00 Magnesium Hydroxide (Milk Of Magnesia) 2,400 mg PRN QHS PRN PO CONSTIPATION; Start 09/05/17 at 15:00; Status Cancel Multi-Ingredient Ointment (Analgesic Pierce) 1 darrel PRN QID PRN TP MUSCLE PAIN; Start 09/05/17 at 15:00; Status Cancel Mirtazapine (Remeron) 15 mg QHS PO Last administered on 09/14/17 19:25; Start 09/05/17 at 21:00 Polyethylene Glycol (miraLAX) 17 gm PRN DAILY PRN PO CONSTIPATION; Start at 09:00 Potassium Chloride (Klor-Con) 40 meq DAILY PO Last administered on 09/14/17 09:16; Start 09/06/17 at 09:00 Risperidone (RisperDAL) 0.5 mg PRN Q6HRS PRN PO AGITATION; Start 09/05/17 at 15 :00; Stop 09/07/17 at 15:49; Status DC Sennosides (Senna) 8.6 mg DAILY PO Last administered on 09/14/17 08:11; Start 09/06/17 at 09:00 Sertraline HCl (Zoloft) 25 mg DAILY PO Last administered on 09/06/17 10:25; Start 09/06/17 at 09:00; Stop 09/06/17 at 19:30; Status DC Tamsulosin HCl (Flomax) 0.4 mg DAILY PO Last administered on 09/14/17 08:11; Start 09/06/17 at 09:00 Lisinopril (Prinivil) 20 mg DAILY PO ; Start 09/06/17 at 09:00; Stop 09/06/17 at 11:20; Status DC Al Hydroxide/Mg Hydroxide (Mylanta Plus Xs) 15 ml PRN AFTMEALHC PRN PO DYSPEPSIA; Start 09/05/17 at 15:45; Status Cancel Melatonin 3 mg QHS PO Last administered on 09/14/17 19:25; Start 09/05/17 at 21:00 Prenat Multivit/ [place]/Iron/Folic Ac (Multivitamin ) 1 tab DAILY PO Last administered on 09/14/17 09:16; Start 09/06/17 at 09:00 Olanzapine (ZyPREXA ZYDIS) 2.5 mg PRN Q2HR PRN PO AGITATION Last administered on 09/11/17 04:49; Start 09/05/17 at 17:30 Carvedilol (Coreg) 6.25 mg BIDWMEALS PO Last administered on 09/14/17 08:10; Start 09/06/17 at 17:00 Lisinopril (Prinivil) 10 mg DAILY PO Last administered on 09/14/17 08:10; Start 09/07/17 at 09:00 Quetiapine Fumarate (SEROquel) 12.5 mg BID92 PO ; Start 09/07/17 at 09:00; Stop 09/07/17 at 09:00; Status DC Sertraline HCl (Zoloft) 50 mg DAILY PO Last administered on 09/14/17 08:11; Start 09/07/17 at 09:00 Buspirone HCl (Buspar) 5 mg BID92 PO Last administered on 09/08/17 09:00; Start 09/07/17 at 09:00; Stop 09/08/17 at 12:03; Status DC Divalproex Sodium (Depakote Sprinkles) 500 mg BID PO Last administered on 09/10 17:27; Start 09/07/17 at 21:00; Stop 09/10/17 at 18:39; Status DC Buspirone HCl (Buspar) 10 mg BID92 PO Last administered on 09/14/17 12:31; Start 09/08/17 at 14:00 Risperidone (RisperDAL) 0.125 mg TID@0900,1400,1700 PO Last administered on 17:28; Start 09/09/17 at 09:00 Divalproex Sodium (Depakote Sprinkles) 625 mg BID PO Last administered on 09/14 19:26; Start 09/11/17 at 09:00 Trazodone HCl (Desyrel) 50 mg QHS PO Last administered on 09/14/17 19:26; Start 09/10/17 at 21:00 Trazodone HCl (Desyrel) 50 mg PRN QHS PRN PO INSOMNIA; Start 09/10/17 at 18:45 Active Scripts Active Reported Risperdal (Risperidone) 0.5 Mg Tablet 0.5 Mg PO PRN Q6HRS PRN Ascorbic Acid 500 Mg Tablet 500 Mg PO DAILY Milk Of Magnesia (Magnesium Hydroxide) 400 Mg/5 Ml Oral.susp 2,400 Mg PO PRN QHS PRN Zoloft (Sertraline Hcl) 25 Mg Tablet 25 Mg PO DAILY Vitamins ( Vits W-Ca,Fe,Fa(<1MG)) 1 Each Tablet 1 Tab PO DAILY Mirtazapine 7.5 Mg Tablet 15 Mg PO QHS Analgesic Pierce (Methyl Salicylate/Menthol) 28 Gm Oint...g. 1 Darrel TP PRN QID PRN Maalox Advanced Suspension (Mag Hydrox/Aluminum Hyd/Simeth) 355 Ml Oral.susp 15 Ml PO PRN AFTMEALHC PRN Vitamin B-12 (Cyanocobalamin (Vitamin B-12)) 1,000 Mcg Tablet 1,000 Mcg PO DAILY Polyethylene Glycol 3350 255 Gm Powder 17 Gm PO PRN DAILY PRN Tylenol (Acetaminophen) 325 Mg Tablet 650 Mg PO PRN Q6HRS PRN Lorazepam 0.5 Mg Tablet 0.25 Mg PO PRN Q6HRS PRN Furosemide 40 Mg Tablet 40 Mg PO DAILY Klor-Con M20 (Potassium Chloride) 20 Meq Tab.er.prt 40 Meq PO DAILY Lisinopril 40 Mg Tablet 20 Mg PO DAILY Vitamin D3 (Cholecalciferol (Vitamin D3)) 1,000 Unit Tablet 1,000 Unit PO DAILY Aspirin 81 Mg Tab.chew 81 Mg PO DAILY Amiodarone Hcl 200 Mg Tablet 200 Mg PO DAILY Atorvastatin Calcium 10 Mg Tablet 10 Mg PO QHS Tamsulosin Hcl 0.4 Mg Cap.er.24h 0.4 Mg PO DAILY Melatonin 3 Mg Tablet 3 Mg PO HS Senokot (Sennosides) 8.6 Mg Tablet 8.6 Mg PO DAILY Carvedilol 12.5 Mg Tablet 12.5 Mg PO BIDWMEALS Divalproex Sodium 125 Mg Cap.sprink 375 Mg PO BID I have reviewed the current psychotropics carefully including drug interactions. Risk benefit ratio favors no change other than as noted in my dictated progress note. Diagnosis: Problems: (1) Dementia with behavioral disturbance (2) Anxiety disorder (3) Impulse control disorder (4) Dementia, vascular, with depression (5) Dementia, vascular, with delusions (6) Dementia in Alzheimer's disease with depression (7) Dementia in Alzheimer's disease with delusions JING ROSS MD Sep 14, 2017 19:58
[2017-09-15 05:40] VITALS: BP 124/73
--- NOTE | 2017-09-15 06:03 | PN ---
DATE: 09/13/2017 PSYCHIATRIC PROGRESS NOTE This is a late entry for 09/13/2017, covers elements not covered in my initial note of 09/13/2017. SUBJECTIVE: I met with the patient the evening of 09/13/2017. The patient has been pacing, anxious, restless, confused, took a nap in the afternoon, then did better later, but by the time I met with him late in the evening of 09/13/2017, he was again checking doors, anxious, restless, walking up and down the hallway, difficult to redirect. REVIEW OF SYSTEMS: No CV, , pulmonary, eye, ENT system symptoms on review. Reliability poor. MENTAL STATUS EXAM: Oriented to himself. Insight, judgment, recent and remote memory, attention, concentration, fund of knowledge poor, consistent with his diagnosis mentioned in my initial note. PLAN: Continue current psychotropics. Reviewed drug interactions. Risk/benefit ratio favors no further change. JING ROSS MD DR: JERI/pedro JOB#: [id number] / [id number]
[2017-09-15] MEDS: DIVALPROEX 125 MG CAP.SPRINK PO SCH ×2 (08:05→19:14)
[2017-09-15] MEDS: POTASSIUM CHLORIDE 20 MEQ TABLET.ER. PO SCH (08:06)
[2017-09-15] MEDS: ASCORBIC ACID 500 MG TABLET PO SCH (08:06)
[2017-09-15] MEDS: SENNOSIDES 8.6 MG TABLET PO SCH (08:06)
[2017-09-15] MEDS: FUROSEMIDE 40 MG TABLET PO SCH (08:06)
[2017-09-15] MEDS: TAMSULOSIN 0.4 MG CAP.ER.24H. PO SCH (08:06)
[2017-09-15] MEDS: risperiDONE 0.25 MG TABLET. PO SCH ×3 (08:07→16:55)
[2017-09-15] MEDS: AMIODARONE HCL 200 MG TABLET PO SCH (08:07)
[2017-09-15] MEDS: LISINOPRIL 10 MG TABLET PO SCH (08:08)
[2017-09-15] MEDS: SERTRALINE 50 MG TABLET. PO SCH (08:09)
[2017-09-15] MEDS: ASPIRIN 81 MG TAB.CHEW PO SCH (08:09)
[2017-09-15] MEDS: CHOLECALCIFEROL (VITAMIN D3) 1,000 UNIT TABLET PO SCH (08:09)
[2017-09-15] MEDS: CYANOCOBALAMIN (VITAMIN B-12) 1,000 MCG TABLET. PO SCH (08:10)
[2017-09-15] MEDS: CARVEDILOL 6.25 MG TABLET PO SCH ×2 (08:10→16:55)
[2017-09-15] MEDS: busPIRone 10 MG TABLET. PO SCH ×2 (08:11→14:00)
[2017-09-15] MEDS: PRENATAL MULTIVITAMIN TABLET. PO SCH (08:12)
[2017-09-15 16:43] VITALS: BP 103/61
[2017-09-15] MEDS: MELATONIN 3 MG TABLET PO SCH (19:14)
[2017-09-15] MEDS: ATORVASTATIN CALCIUM 10 MG TABLET. PO SCH (19:14)
[2017-09-15] MEDS: traZODone 50 MG TABLET. PO SCH (19:15)
[2017-09-15] MEDS: MIRTAZAPINE 15 MG TABLET PO SCH (19:15)
--- NOTE | 2017-09-15 20:16 | PDOC ---
Exam Note: [place] Note: Please also refer to the separate dictated note~for this date of service dictated separately.~Patient seen individually. Discussed the patient with Nursing staff reviewed the chart.~Reviewed interim history and current functioning. Reviewed vital signs,~Labs/ Radiology~and current medications noted below. Continue current treatment with the changes noted in the dictated addendum note Assessment: Vital Signs: Vital Signs Date Time Temp Pulse Resp B/P (MAP) Pulse Ox O2 Delivery O2 Flow Rate FiO2 09/15/17 16:55 60 103/61 09/15/17 16:43 97.9 16 95 Room Air I&O Intake and Output 09/15/17 07:00 Intake Total 1260 ml Balance 1260 ml Intake Oral 1260 ml Current Medications: Meds: Current Medications Acetaminophen (Tylenol) 650 mg PRN Q6HRS PRN PO PAIN / TEMP; Start 09/05/17 at 14:00 Multi-Ingredient Ointment (Analgesic [place]) 1 darrel PRN QID PRN TP MUSCLE PAIN; Start 09/05/17 at 14:00 Al Hydroxide/Mg Hydroxide (Mylanta Plus Xs) 15 ml PRN AFTMEALHC PRN PO DYSPEPSIA; Start 09/05/17 at 14:00 Magnesium Hydroxide (Milk Of Magnesia) 2,400 mg PRN QHS PRN PO CONSTIPATION; Start 09/05/17 at 14:00 Acetaminophen (Tylenol) 650 mg PRN Q6HRS PRN PO PAIN / TEMP; Start 09/05/17 at 15:00; Status Cancel Amiodarone HCl (Cordarone) 200 mg DAILY PO Last administered on 09/15/17 08: 07; Start 09/06/17 at 09:00 Ascorbic Acid (Vitamin C) 500 mg DAILY PO Last administered on 09/15/17 08:06 ; Start 09/06/17 at 09:00 Aspirin (Children'S Aspirin) 81 mg DAILY PO Last administered on 09/15/17 08: 09; Start 09/06/17 at 09:00 Atorvastatin Calcium (Lipitor) 10 mg QHS PO Last administered on 09/15/17 19: 14; Start 09/05/17 at 21:00 Carvedilol (Coreg) 12.5 mg BIDWMEALS PO Last administered on 09/05/17 17:40; Start 09/05/17 at 17:00; Stop 09/06/17 at 11:20; Status DC Vitamin D (Vitamin D3) 1,000 unit DAILY PO Last administered on 09/15/17 08: 09; Start 09/06/17 at 09:00 Cyanocobalamin (Vitamin B-12) 1,000 mcg DAILY PO Last administered on 08:10; Start 09/06/17 at 09:00 Divalproex Sodium (Depakote Sprinkles) 375 mg BID PO Last administered on 10:05; Start 09/05/17 at 21:00; Stop 09/07/17 at 17:38; Status DC Furosemide (Lasix) 40 mg DAILY PO Last administered on 09/15/17 08:06; Start 09/06/17 at 09:00 Lorazepam (Ativan) 0.25 mg PRN Q6HRS PRN PO ANXIETY / AGITATION; Start at 15:00 Magnesium Hydroxide (Milk Of Magnesia) 2,400 mg PRN QHS PRN PO CONSTIPATION; Start 09/05/17 at 15:00; Status Cancel Multi-Ingredient Ointment (Analgesic [place]) 1 darrel PRN QID PRN TP MUSCLE PAIN; Start 09/05/17 at 15:00; Status Cancel Mirtazapine (Remeron) 15 mg QHS PO Last administered on 09/15/17 19:15; Start 09/05/17 at 21:00 Polyethylene Glycol (miraLAX) 17 gm PRN DAILY PRN PO CONSTIPATION; Start at 09:00 Potassium Chloride (Klor-Con) 40 meq DAILY PO Last administered on 09/15/17 08:06; Start 09/06/17 at 09:00 Risperidone (RisperDAL) 0.5 mg PRN Q6HRS PRN PO AGITATION; Start 09/05/17 at 15 :00; Stop 09/07/17 at 15:49; Status DC Sennosides (Senna) 8.6 mg DAILY PO Last administered on 09/15/17 08:06; Start 09/06/17 at 09:00 Sertraline HCl (Zoloft) 25 mg DAILY PO Last administered on 09/06/17 10:25; Start 09/06/17 at 09:00; Stop 09/06/17 at 19:30; Status DC Tamsulosin HCl (Flomax) 0.4 mg DAILY PO Last administered on 09/15/17 08:06; Start 09/06/17 at 09:00 Lisinopril (Prinivil) 20 mg DAILY PO ; Start 09/06/17 at 09:00; Stop 09/06/17 at 11:20; Status DC Al Hydroxide/Mg Hydroxide (Mylanta Plus Xs) 15 ml PRN AFTMEALHC PRN PO DYSPEPSIA; Start 09/05/17 at 15:45; Status Cancel Melatonin 3 mg QHS PO Last administered on 09/15/17 19:14; Start 09/05/17 at 21:00 Prenat Multivit/ [place]/Iron/Folic Ac (Multivitamin ) 1 tab DAILY PO Last administered on 09/15/17 08:12; Start 09/06/17 at 09:00 Olanzapine (ZyPREXA ZYDIS) 2.5 mg PRN Q2HR PRN PO AGITATION Last administered on 09/11/17 04:49; Start 09/05/17 at 17:30 Carvedilol (Coreg) 6.25 mg BIDWMEALS PO Last administered on 09/15/17 16:55; Start 09/06/17 at 17:00 Lisinopril (Prinivil) 10 mg DAILY PO Last administered on 09/15/17 08:08; Start 09/07/17 at 09:00 Quetiapine Fumarate (SEROquel) 12.5 mg BID92 PO ; Start 09/07/17 at 09:00; Stop 09/07/17 at 09:00; Status DC Sertraline HCl (Zoloft) 50 mg DAILY PO Last administered on 09/15/17 08:09; Start 09/07/17 at 09:00 Buspirone HCl (Buspar) 5 mg BID92 PO Last administered on 09/08/17 09:00; Start 09/07/17 at 09:00; Stop 09/08/17 at 12:03; Status DC Divalproex Sodium (Depakote Sprinkles) 500 mg BID PO Last administered on 09/10 17:27; Start 09/07/17 at 21:00; Stop 09/10/17 at 18:39; Status DC Buspirone HCl (Buspar) 10 mg BID92 PO Last administered on 09/15/17 14:00; Start 09/08/17 at 14:00 Risperidone (RisperDAL) 0.125 mg TID@0900,1400,1700 PO Last administered on 16:55; Start 09/09/17 at 09:00 Divalproex Sodium (Depakote Sprinkles) 625 mg BID PO Last administered on 09/15 19:14; Start 09/11/17 at 09:00 Trazodone HCl (Desyrel) 50 mg QHS PO Last administered on 09/15/17 19:15; Start 09/10/17 at 21:00 Trazodone HCl (Desyrel) 50 mg PRN QHS PRN PO INSOMNIA; Start 09/10/17 at 18:45 Active Scripts Active Reported Risperdal (Risperidone) 0.5 Mg Tablet 0.5 Mg PO PRN Q6HRS PRN Ascorbic Acid 500 Mg Tablet 500 Mg PO DAILY Milk Of Magnesia (Magnesium Hydroxide) 400 Mg/5 Ml Oral.susp 2,400 Mg PO PRN QHS PRN Zoloft (Sertraline Hcl) 25 Mg Tablet 25 Mg PO DAILY Vitamins ( Vits W-Ca,Fe,Fa(<1MG)) 1 Each Tablet 1 Tab PO DAILY Mirtazapine 7.5 Mg Tablet 15 Mg PO QHS Analgesic [place] (Methyl Salicylate/Menthol) 28 Gm Oint...g. 1 Darrel TP PRN QID PRN Maalox Advanced Suspension (Mag Hydrox/Aluminum Hyd/Simeth) 355 Ml Oral.susp 15 Ml PO PRN AFTMEALHC PRN Vitamin B-12 (Cyanocobalamin (Vitamin B-12)) 1,000 Mcg Tablet 1,000 Mcg PO DAILY Polyethylene Glycol 3350 255 Gm Powder 17 Gm PO PRN DAILY PRN Tylenol (Acetaminophen) 325 Mg Tablet 650 Mg PO PRN Q6HRS PRN Lorazepam 0.5 Mg Tablet 0.25 Mg PO PRN Q6HRS PRN Furosemide 40 Mg Tablet 40 Mg PO DAILY Klor-Con M20 (Potassium Chloride) 20 Meq Tab.er.prt 40 Meq PO DAILY Lisinopril 40 Mg Tablet 20 Mg PO DAILY Vitamin D3 (Cholecalciferol (Vitamin D3)) 1,000 Unit Tablet 1,000 Unit PO DAILY Aspirin 81 Mg Tab.chew 81 Mg PO DAILY Amiodarone Hcl 200 Mg Tablet 200 Mg PO DAILY Atorvastatin Calcium 10 Mg Tablet 10 Mg PO QHS Tamsulosin Hcl 0.4 Mg Cap.er.24h 0.4 Mg PO DAILY Melatonin 3 Mg Tablet 3 Mg PO HS Senokot (Sennosides) 8.6 Mg Tablet 8.6 Mg PO DAILY Carvedilol 12.5 Mg Tablet 12.5 Mg PO BIDWMEALS Divalproex Sodium 125 Mg Cap.sprink 375 Mg PO BID I have reviewed the current psychotropics carefully including drug interactions. Risk benefit ratio favors no change other than as noted in my dictated progress note. Diagnosis: Problems: (1) Dementia with behavioral disturbance (2) Anxiety disorder (3) Impulse control disorder (4) Dementia, vascular, with depression (5) Dementia, vascular, with delusions (6) Dementia in Alzheimer's disease with depression (7) Dementia in Alzheimer's disease with delusions JING ROSS MD Sep 15, 2017 20:16
[2017-09-16 05:52] VITALS: BP 123/74
[2017-09-16] MEDS: LISINOPRIL 10 MG TABLET PO SCH (08:14)
[2017-09-16] MEDS: DIVALPROEX 125 MG CAP.SPRINK PO SCH ×2 (08:14→19:26)
[2017-09-16] MEDS: CARVEDILOL 6.25 MG TABLET PO SCH ×2 (08:14→16:56)
[2017-09-16] MEDS: SERTRALINE 50 MG TABLET. PO SCH (08:15)
[2017-09-16] MEDS: TAMSULOSIN 0.4 MG CAP.ER.24H. PO SCH (08:15)
[2017-09-16] MEDS: ASPIRIN 81 MG TAB.CHEW PO SCH (08:15)
[2017-09-16] MEDS: busPIRone 10 MG TABLET. PO SCH ×2 (08:15→14:02)
[2017-09-16] MEDS: SENNOSIDES 8.6 MG TABLET PO SCH (08:15)
[2017-09-16] MEDS: POTASSIUM CHLORIDE 20 MEQ TABLET.ER. PO SCH (08:15)
[2017-09-16] MEDS: CHOLECALCIFEROL (VITAMIN D3) 1,000 UNIT TABLET PO SCH (08:15)
[2017-09-16] MEDS: CYANOCOBALAMIN (VITAMIN B-12) 1,000 MCG TABLET. PO SCH (08:16)
[2017-09-16] MEDS: FUROSEMIDE 40 MG TABLET PO SCH (08:16)
[2017-09-16] MEDS: AMIODARONE HCL 200 MG TABLET PO SCH (08:16)
[2017-09-16] MEDS: PRENATAL MULTIVITAMIN TABLET. PO SCH (08:16)
[2017-09-16] MEDS: risperiDONE 0.25 MG TABLET. PO SCH ×3 (08:16→16:56)
[2017-09-16] MEDS: ASCORBIC ACID 500 MG TABLET PO SCH (08:16)
[2017-09-16 15:55] VITALS: BP 100/60
[2017-09-16] MEDS: MELATONIN 3 MG TABLET PO SCH (19:26)
[2017-09-16] MEDS: ATORVASTATIN CALCIUM 10 MG TABLET. PO SCH (19:26)
[2017-09-16] MEDS: traZODone 50 MG TABLET. PO SCH (19:26)
[2017-09-16] MEDS: MIRTAZAPINE 15 MG TABLET PO SCH (19:27)
--- NOTE | 2017-09-16 19:59 | PDOC ---
Exam Note: [place] Note: Please also refer to the separate dictated note~for this date of service dictated separately.~Patient seen individually. Discussed the patient with Nursing staff reviewed the chart.~Reviewed interim history and current functioning. Reviewed vital signs,~Labs/ Radiology~and current medications noted below. Continue current treatment with the changes noted in the dictated addendum note Assessment: Vital Signs: Vital Signs Date Time Temp Pulse Resp B/P (MAP) Pulse Ox O2 Delivery O2 Flow Rate FiO2 09/16/17 16:56 60 100/60 09/16/17 15:55 98.2 16 Room Air 90.0 09/16/17 05:52 97 I&O Intake and Output 09/16/17 07:00 Intake Total 1320 ml Balance 1320 ml Intake Oral 1320 ml Current Medications: Meds: Current Medications Acetaminophen (Tylenol) 650 mg PRN Q6HRS PRN PO PAIN / TEMP; Start 09/05/17 at 14:00 Multi-Ingredient Ointment (Analgesic [place]) 1 darrel PRN QID PRN TP MUSCLE PAIN; Start 09/05/17 at 14:00 Al Hydroxide/Mg Hydroxide (Mylanta Plus Xs) 15 ml PRN AFTMEALHC PRN PO DYSPEPSIA; Start 09/05/17 at 14:00 Magnesium Hydroxide (Milk Of Magnesia) 2,400 mg PRN QHS PRN PO CONSTIPATION; Start 09/05/17 at 14:00 Acetaminophen (Tylenol) 650 mg PRN Q6HRS PRN PO PAIN / TEMP; Start 09/05/17 at 15:00; Status Cancel Amiodarone HCl (Cordarone) 200 mg DAILY PO Last administered on 09/16/17 08: 16; Start 09/06/17 at 09:00 Ascorbic Acid (Vitamin C) 500 mg DAILY PO Last administered on 09/16/17 08:16 ; Start 09/06/17 at 09:00 Aspirin (Children'S Aspirin) 81 mg DAILY PO Last administered on 09/16/17 08: 15; Start 09/06/17 at 09:00 Atorvastatin Calcium (Lipitor) 10 mg QHS PO Last administered on 09/16/17 19: 26; Start 09/05/17 at 21:00 Carvedilol (Coreg) 12.5 mg BIDWMEALS PO Last administered on 09/05/17 17:40; Start 09/05/17 at 17:00; Stop 09/06/17 at 11:20; Status DC Vitamin D (Vitamin D3) 1,000 unit DAILY PO Last administered on 09/16/17 08: 15; Start 09/06/17 at 09:00 Cyanocobalamin (Vitamin B-12) 1,000 mcg DAILY PO Last administered on 08:16; Start 09/06/17 at 09:00 Divalproex Sodium (Depakote Sprinkles) 375 mg BID PO Last administered on 10:05; Start 09/05/17 at 21:00; Stop 09/07/17 at 17:38; Status DC Furosemide (Lasix) 40 mg DAILY PO Last administered on 09/16/17 08:16; Start 09/06/17 at 09:00 Lorazepam (Ativan) 0.25 mg PRN Q6HRS PRN PO ANXIETY / AGITATION; Start at 15:00 Magnesium Hydroxide (Milk Of Magnesia) 2,400 mg PRN QHS PRN PO CONSTIPATION; Start 09/05/17 at 15:00; Status Cancel Multi-Ingredient Ointment (Analgesic [place]) 1 darrel PRN QID PRN TP MUSCLE PAIN; Start 09/05/17 at 15:00; Status Cancel Mirtazapine (Remeron) 15 mg QHS PO Last administered on 09/16/17 19:27; Start 09/05/17 at 21:00 Polyethylene Glycol (miraLAX) 17 gm PRN DAILY PRN PO CONSTIPATION; Start at 09:00 Potassium Chloride (Klor-Con) 40 meq DAILY PO Last administered on 09/16/17 08:15; Start 09/06/17 at 09:00 Risperidone (RisperDAL) 0.5 mg PRN Q6HRS PRN PO AGITATION; Start 09/05/17 at 15 :00; Stop 09/07/17 at 15:49; Status DC Sennosides (Senna) 8.6 mg DAILY PO Last administered on 09/16/17 08:15; Start 09/06/17 at 09:00 Sertraline HCl (Zoloft) 25 mg DAILY PO Last administered on 09/06/17 10:25; Start 09/06/17 at 09:00; Stop 09/06/17 at 19:30; Status DC Tamsulosin HCl (Flomax) 0.4 mg DAILY PO Last administered on 09/16/17 08:15; Start 09/06/17 at 09:00 Lisinopril (Prinivil) 20 mg DAILY PO ; Start 09/06/17 at 09:00; Stop 09/06/17 at 11:20; Status DC Al Hydroxide/Mg Hydroxide (Mylanta Plus Xs) 15 ml PRN AFTMEALHC PRN PO DYSPEPSIA; Start 09/05/17 at 15:45; Status Cancel Melatonin 3 mg QHS PO Last administered on 09/16/17 19:26; Start 09/05/17 at 21:00 Prenat Multivit/ [place]/Iron/Folic Ac (Multivitamin ) 1 tab DAILY PO Last administered on 09/16/17 08:16; Start 09/06/17 at 09:00 Olanzapine (ZyPREXA ZYDIS) 2.5 mg PRN Q2HR PRN PO AGITATION Last administered on 09/11/17 04:49; Start 09/05/17 at 17:30 Carvedilol (Coreg) 6.25 mg BIDWMEALS PO Last administered on 09/16/17 16:56; Start 09/06/17 at 17:00 Lisinopril (Prinivil) 10 mg DAILY PO Last administered on 09/16/17 08:14; Start 09/07/17 at 09:00 Quetiapine Fumarate (SEROquel) 12.5 mg BID92 PO ; Start 09/07/17 at 09:00; Stop 09/07/17 at 09:00; Status DC Sertraline HCl (Zoloft) 50 mg DAILY PO Last administered on 09/16/17 08:15; Start 09/07/17 at 09:00 Buspirone HCl (Buspar) 5 mg BID92 PO Last administered on 09/08/17 09:00; Start 09/07/17 at 09:00; Stop 09/08/17 at 12:03; Status DC Divalproex Sodium (Depakote Sprinkles) 500 mg BID PO Last administered on 09/10 17:27; Start 09/07/17 at 21:00; Stop 09/10/17 at 18:39; Status DC Buspirone HCl (Buspar) 10 mg BID92 PO Last administered on 09/16/17 14:02; Start 09/08/17 at 14:00 Risperidone (RisperDAL) 0.125 mg TID@0900,1400,1700 PO Last administered on 16:56; Start 09/09/17 at 09:00 Divalproex Sodium (Depakote Sprinkles) 625 mg BID PO Last administered on 09/16 19:26; Start 09/11/17 at 09:00 Trazodone HCl (Desyrel) 50 mg QHS PO Last administered on 09/16/17 19:26; Start 09/10/17 at 21:00 Trazodone HCl (Desyrel) 50 mg PRN QHS PRN PO INSOMNIA; Start 09/10/17 at 18:45 Active Scripts Active Reported Risperdal (Risperidone) 0.5 Mg Tablet 0.5 Mg PO PRN Q6HRS PRN Ascorbic Acid 500 Mg Tablet 500 Mg PO DAILY Milk Of Magnesia (Magnesium Hydroxide) 400 Mg/5 Ml Oral.susp 2,400 Mg PO PRN QHS PRN Zoloft (Sertraline Hcl) 25 Mg Tablet 25 Mg PO DAILY Vitamins ( Vits W-Ca,Fe,Fa(<1MG)) 1 Each Tablet 1 Tab PO DAILY Mirtazapine 7.5 Mg Tablet 15 Mg PO QHS Analgesic [place] (Methyl Salicylate/Menthol) 28 Gm Oint...g. 1 Darrel TP PRN QID PRN Maalox Advanced Suspension (Mag Hydrox/Aluminum Hyd/Simeth) 355 Ml Oral.susp 15 Ml PO PRN AFTMEALHC PRN Vitamin B-12 (Cyanocobalamin (Vitamin B-12)) 1,000 Mcg Tablet 1,000 Mcg PO DAILY Polyethylene Glycol 3350 255 Gm Powder 17 Gm PO PRN DAILY PRN Tylenol (Acetaminophen) 325 Mg Tablet 650 Mg PO PRN Q6HRS PRN Lorazepam 0.5 Mg Tablet 0.25 Mg PO PRN Q6HRS PRN Furosemide 40 Mg Tablet 40 Mg PO DAILY Klor-Con M20 (Potassium Chloride) 20 Meq Tab.er.prt 40 Meq PO DAILY Lisinopril 40 Mg Tablet 20 Mg PO DAILY Vitamin D3 (Cholecalciferol (Vitamin D3)) 1,000 Unit Tablet 1,000 Unit PO DAILY Aspirin 81 Mg Tab.chew 81 Mg PO DAILY Amiodarone Hcl 200 Mg Tablet 200 Mg PO DAILY Atorvastatin Calcium 10 Mg Tablet 10 Mg PO QHS Tamsulosin Hcl 0.4 Mg Cap.er.24h 0.4 Mg PO DAILY Melatonin 3 Mg Tablet 3 Mg PO HS Senokot (Sennosides) 8.6 Mg Tablet 8.6 Mg PO DAILY Carvedilol 12.5 Mg Tablet 12.5 Mg PO BIDWMEALS Divalproex Sodium 125 Mg Cap.sprink 375 Mg PO BID I have reviewed the current psychotropics carefully including drug interactions. Risk benefit ratio favors no change other than as noted in my dictated progress note. Diagnosis: Problems: (1) Dementia with behavioral disturbance (2) Anxiety disorder (3) Impulse control disorder (4) Dementia, vascular, with depression (5) Dementia, vascular, with delusions (6) Dementia in Alzheimer's disease with depression (7) Dementia in Alzheimer's disease with delusions JING ROSS MD Sep 16, 2017 19:59
--- NOTE | 2017-09-17 03:40 | PN ---
DATE: 09/15/2017 This late entry for 09/15/2017 covers elements not covered in my initial note of 09/15/2017. SUBJECTIVE: The patient was staffed at a treatment team meeting with the entire team morning of 09/15/2017, is seen individually evening of 09/15/2017. 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 REVIEW OF SYSTEMS: No CV, , pulmonary, eye, ENT system symptoms on review. Reliability poor. MENTAL STATUS EXAM: Oriented to himself. Insight, judgment, recent and remote memory, attention, concentration, fund of knowledge poor, consistent with his diagnosis mentioned in my initial note. PLAN: Continue psychotropics mentioned in my initial note. MAN Lucas ROSS MD DR: JERI/pedro JOB#: [id number] / [id number]
--- NOTE | 2017-09-17 04:24 | PN ---
DATE: 09/14/2017 This late entry 09/14/2017 covers elements not covered in the initial note 09/14/2017. I met with the patient in the evening of 09/14/2017. The patient remains confused, constantly rattling the doors, more so in the morning, less aggressive, however. REVIEW OF SYSTEMS: No CV, , pulmonary, eye, ENT system symptoms on review. Reliability poor. MENTAL STATUS EXAM: Oriented to himself. Insight, judgment, recent and remote memory, attention, concentration, fund of knowledge poor, consistent with his diagnosis mentioned in my initial note. PLAN: Continue current psychotropics. Valproic acid level is 81. Psychotropics mentioned in my initial note. Adjust further as clinically indicated. MAN Lucas ROSS MD DR: JERI/pedro JOB#: [id number] / [id number]
[2017-09-17 05:46] VITALS: BP 131/81
[2017-09-17] MEDS: TAMSULOSIN 0.4 MG CAP.ER.24H. PO SCH (07:33)
[2017-09-17] MEDS: AMIODARONE HCL 200 MG TABLET PO SCH (07:33)
[2017-09-17] MEDS: CYANOCOBALAMIN (VITAMIN B-12) 1,000 MCG TABLET. PO SCH (07:33)
[2017-09-17] MEDS: PRENATAL MULTIVITAMIN TABLET. PO SCH (07:33)
[2017-09-17] MEDS: FUROSEMIDE 40 MG TABLET PO SCH (07:33)
[2017-09-17] MEDS: SERTRALINE 50 MG TABLET. PO SCH (07:33)
[2017-09-17] MEDS: CHOLECALCIFEROL (VITAMIN D3) 1,000 UNIT TABLET PO SCH (07:34)
[2017-09-17] MEDS: ASPIRIN 81 MG TAB.CHEW PO SCH (07:34)
[2017-09-17] MEDS: busPIRone 10 MG TABLET. PO SCH ×2 (07:34→14:34)
[2017-09-17] MEDS: CARVEDILOL 6.25 MG TABLET PO SCH ×2 (07:35→17:00)
[2017-09-17] MEDS: LISINOPRIL 10 MG TABLET PO SCH (07:35)
[2017-09-17] MEDS: risperiDONE 0.25 MG TABLET. PO SCH ×3 (07:36→17:31)
[2017-09-17] MEDS: DIVALPROEX 125 MG CAP.SPRINK PO SCH ×2 (07:36→19:29)
[2017-09-17] MEDS: POTASSIUM CHLORIDE 20 MEQ TABLET.ER. PO SCH (07:36)
[2017-09-17] MEDS: SENNOSIDES 8.6 MG TABLET PO SCH (07:36)
[2017-09-17] MEDS: ASCORBIC ACID 500 MG TABLET PO SCH (07:36)
[2017-09-17 15:57] VITALS: BP 101/59
[2017-09-17] MEDS: MELATONIN 3 MG TABLET PO SCH (19:29)
[2017-09-17] MEDS: ATORVASTATIN CALCIUM 10 MG TABLET. PO SCH (19:29)
[2017-09-17] MEDS: traZODone 50 MG TABLET. PO SCH (19:29)
[2017-09-17] MEDS: MIRTAZAPINE 15 MG TABLET PO SCH (19:29)
[2017-09-17 19:52] VITALS: BP 128/80
--- NOTE | 2017-09-17 21:10 | PDOC ---
Exam Note: [place] Note: Please also refer to the separate dictated note~for this date of service dictated separately.~Patient seen individually. Discussed the patient with Nursing staff reviewed the chart.~Reviewed interim history and current functioning. Reviewed vital signs,~Labs/ Radiology~and current medications noted below. Continue current treatment with the changes noted in the dictated addendum note Assessment: Vital Signs: Vital Signs Date Time Temp Pulse Resp B/P (MAP) Pulse Ox O2 Delivery O2 Flow Rate FiO2 09/17/17 19:52 128/80 (96) 09/17/17 17:00 61 09/17/17 15:57 97.5 18 94 09/16/17 15:55 Room Air 90.0 I&O Intake and Output 09/17/17 07:00 Intake Total 1560 ml Balance 1560 ml Intake Oral 1560 ml # Bowel Movements 1 Current Medications: Meds: Current Medications Acetaminophen (Tylenol) 650 mg PRN Q6HRS PRN PO PAIN / TEMP; Start 09/05/17 at 14:00 Multi-Ingredient Ointment (Analgesic [place]) 1 darrel PRN QID PRN TP MUSCLE PAIN; Start 09/05/17 at 14:00 Al Hydroxide/Mg Hydroxide (Mylanta Plus Xs) 15 ml PRN AFTMEALHC PRN PO DYSPEPSIA; Start 09/05/17 at 14:00 Magnesium Hydroxide (Milk Of Magnesia) 2,400 mg PRN QHS PRN PO CONSTIPATION; Start 09/05/17 at 14:00 Acetaminophen (Tylenol) 650 mg PRN Q6HRS PRN PO PAIN / TEMP; Start 09/05/17 at 15:00; Status Cancel Amiodarone HCl (Cordarone) 200 mg DAILY PO Last administered on 09/17/17 07: 33; Start 09/06/17 at 09:00 Ascorbic Acid (Vitamin C) 500 mg DAILY PO Last administered on 09/17/17 07:36 ; Start 09/06/17 at 09:00 Aspirin (Children'S Aspirin) 81 mg DAILY PO Last administered on 09/17/17 07: 34; Start 09/06/17 at 09:00 Atorvastatin Calcium (Lipitor) 10 mg QHS PO Last administered on 09/17/17 19: 29; Start 09/05/17 at 21:00 Carvedilol (Coreg) 12.5 mg BIDWMEALS PO Last administered on 09/05/17 17:40; Start 09/05/17 at 17:00; Stop 09/06/17 at 11:20; Status DC Vitamin D (Vitamin D3) 1,000 unit DAILY PO Last administered on 09/17/17 07: 34; Start 09/06/17 at 09:00 Cyanocobalamin (Vitamin B-12) 1,000 mcg DAILY PO Last administered on 07:33; Start 09/06/17 at 09:00 Divalproex Sodium (Depakote Sprinkles) 375 mg BID PO Last administered on 10:05; Start 09/05/17 at 21:00; Stop 09/07/17 at 17:38; Status DC Furosemide (Lasix) 40 mg DAILY PO Last administered on 09/17/17 07:33; Start 09/06/17 at 09:00 Lorazepam (Ativan) 0.25 mg PRN Q6HRS PRN PO ANXIETY / AGITATION; Start at 15:00 Magnesium Hydroxide (Milk Of Magnesia) 2,400 mg PRN QHS PRN PO CONSTIPATION; Start 09/05/17 at 15:00; Status Cancel Multi-Ingredient Ointment (Analgesic [place]) 1 darrel PRN QID PRN TP MUSCLE PAIN; Start 09/05/17 at 15:00; Status Cancel Mirtazapine (Remeron) 15 mg QHS PO Last administered on 09/17/17 19:29; Start 09/05/17 at 21:00 Polyethylene Glycol (miraLAX) 17 gm PRN DAILY PRN PO CONSTIPATION; Start at 09:00 Potassium Chloride (Klor-Con) 40 meq DAILY PO Last administered on 09/17/17 07:36; Start 09/06/17 at 09:00 Risperidone (RisperDAL) 0.5 mg PRN Q6HRS PRN PO AGITATION; Start 09/05/17 at 15 :00; Stop 09/07/17 at 15:49; Status DC Sennosides (Senna) 8.6 mg DAILY PO Last administered on 09/17/17 07:36; Start 09/06/17 at 09:00 Sertraline HCl (Zoloft) 25 mg DAILY PO Last administered on 09/06/17 10:25; Start 09/06/17 at 09:00; Stop 09/06/17 at 19:30; Status DC Tamsulosin HCl (Flomax) 0.4 mg DAILY PO Last administered on 09/17/17 07:33; Start 09/06/17 at 09:00 Lisinopril (Prinivil) 20 mg DAILY PO ; Start 09/06/17 at 09:00; Stop 09/06/17 at 11:20; Status DC Al Hydroxide/Mg Hydroxide (Mylanta Plus Xs) 15 ml PRN AFTMEALHC PRN PO DYSPEPSIA; Start 09/05/17 at 15:45; Status Cancel Melatonin 3 mg QHS PO Last administered on 09/17/17 19:29; Start 09/05/17 at 21:00 Prenat Multivit/ [place]/Iron/Folic Ac (Multivitamin ) 1 tab DAILY PO Last administered on 09/17/17 07:33; Start 09/06/17 at 09:00 Olanzapine (ZyPREXA ZYDIS) 2.5 mg PRN Q2HR PRN PO AGITATION Last administered on 09/11/17 04:49; Start 09/05/17 at 17:30 Carvedilol (Coreg) 6.25 mg BIDWMEALS PO Last administered on 09/17/17 07:35; Start 09/06/17 at 17:00 Lisinopril (Prinivil) 10 mg DAILY PO Last administered on 09/17/17 07:35; Start 09/07/17 at 09:00 Quetiapine Fumarate (SEROquel) 12.5 mg BID92 PO ; Start 09/07/17 at 09:00; Stop 09/07/17 at 09:00; Status DC Sertraline HCl (Zoloft) 50 mg DAILY PO Last administered on 09/17/17 07:33; Start 09/07/17 at 09:00 Buspirone HCl (Buspar) 5 mg BID92 PO Last administered on 09/08/17 09:00; Start 09/07/17 at 09:00; Stop 09/08/17 at 12:03; Status DC Divalproex Sodium (Depakote Sprinkles) 500 mg BID PO Last administered on 09/10 17:27; Start 09/07/17 at 21:00; Stop 09/10/17 at 18:39; Status DC Buspirone HCl (Buspar) 10 mg BID92 PO Last administered on 09/17/17 14:34; Start 09/08/17 at 14:00 Risperidone (RisperDAL) 0.125 mg TID@0900,1400,1700 PO Last administered on 17:31; Start 09/09/17 at 09:00 Divalproex Sodium (Depakote Sprinkles) 625 mg BID PO Last administered on 09/17 19:29; Start 09/11/17 at 09:00 Trazodone HCl (Desyrel) 50 mg QHS PO Last administered on 09/17/17 19:29; Start 09/10/17 at 21:00 Trazodone HCl (Desyrel) 50 mg PRN QHS PRN PO INSOMNIA; Start 09/10/17 at 18:45 Active Scripts Active Reported Risperdal (Risperidone) 0.5 Mg Tablet 0.5 Mg PO PRN Q6HRS PRN Ascorbic Acid 500 Mg Tablet 500 Mg PO DAILY Milk Of Magnesia (Magnesium Hydroxide) 400 Mg/5 Ml Oral.susp 2,400 Mg PO PRN QHS PRN Zoloft (Sertraline Hcl) 25 Mg Tablet 25 Mg PO DAILY Vitamins ( Vits W-Ca,Fe,Fa(<1MG)) 1 Each Tablet 1 Tab PO DAILY Mirtazapine 7.5 Mg Tablet 15 Mg PO QHS Analgesic [place] (Methyl Salicylate/Menthol) 28 Gm Oint...g. 1 Darrel TP PRN QID PRN Maalox Advanced Suspension (Mag Hydrox/Aluminum Hyd/Simeth) 355 Ml Oral.susp 15 Ml PO PRN AFTMEALHC PRN Vitamin B-12 (Cyanocobalamin (Vitamin B-12)) 1,000 Mcg Tablet 1,000 Mcg PO DAILY Polyethylene Glycol 3350 255 Gm Powder 17 Gm PO PRN DAILY PRN Tylenol (Acetaminophen) 325 Mg Tablet 650 Mg PO PRN Q6HRS PRN Lorazepam 0.5 Mg Tablet 0.25 Mg PO PRN Q6HRS PRN Furosemide 40 Mg Tablet 40 Mg PO DAILY Klor-Con M20 (Potassium Chloride) 20 Meq Tab.er.prt 40 Meq PO DAILY Lisinopril 40 Mg Tablet 20 Mg PO DAILY Vitamin D3 (Cholecalciferol (Vitamin D3)) 1,000 Unit Tablet 1,000 Unit PO DAILY Aspirin 81 Mg Tab.chew 81 Mg PO DAILY Amiodarone Hcl 200 Mg Tablet 200 Mg PO DAILY Atorvastatin Calcium 10 Mg Tablet 10 Mg PO QHS Tamsulosin Hcl 0.4 Mg Cap.er.24h 0.4 Mg PO DAILY Melatonin 3 Mg Tablet 3 Mg PO HS Senokot (Sennosides) 8.6 Mg Tablet 8.6 Mg PO DAILY Carvedilol 12.5 Mg Tablet 12.5 Mg PO BIDWMEALS Divalproex Sodium 125 Mg Cap.sprink 375 Mg PO BID I have reviewed the current psychotropics carefully including drug interactions. Risk benefit ratio favors no change other than as noted in my dictated progress note. Diagnosis: Problems: (1) Dementia with behavioral disturbance (2) Anxiety disorder (3) Impulse control disorder (4) Dementia, vascular, with depression (5) Dementia, vascular, with delusions (6) Dementia in Alzheimer's disease with depression (7) Dementia in Alzheimer's disease with delusions JING ROSS MD Sep 17, 2017 21:10
[2017-09-18 06:04] VITALS: BP 92/56
[2017-09-18] MEDS: CYANOCOBALAMIN (VITAMIN B-12) 1,000 MCG TABLET. PO SCH (07:51)
[2017-09-18] MEDS: LISINOPRIL 10 MG TABLET PO SCH (07:51)
[2017-09-18] MEDS: SENNOSIDES 8.6 MG TABLET PO SCH (07:51)
[2017-09-18] MEDS: CARVEDILOL 6.25 MG TABLET PO SCH ×2 (07:51→16:27)
[2017-09-18] MEDS: CHOLECALCIFEROL (VITAMIN D3) 1,000 UNIT TABLET PO SCH (07:52)
[2017-09-18] MEDS: busPIRone 10 MG TABLET. PO SCH ×2 (07:52→13:43)
[2017-09-18] MEDS: ASCORBIC ACID 500 MG TABLET PO SCH (07:53)
[2017-09-18] MEDS: TAMSULOSIN 0.4 MG CAP.ER.24H. PO SCH (07:53)
[2017-09-18] MEDS: risperiDONE 0.25 MG TABLET. PO SCH ×3 (07:53→16:27)
[2017-09-18] MEDS: PRENATAL MULTIVITAMIN TABLET. PO SCH (07:53)
[2017-09-18] MEDS: FUROSEMIDE 40 MG TABLET PO SCH (07:53)
[2017-09-18] MEDS: ASPIRIN 81 MG TAB.CHEW PO SCH (07:54)
[2017-09-18] MEDS: AMIODARONE HCL 200 MG TABLET PO SCH (07:54)
[2017-09-18] MEDS: SERTRALINE 50 MG TABLET. PO SCH (07:54)
[2017-09-18] MEDS: POTASSIUM CHLORIDE 20 MEQ TABLET.ER. PO SCH (07:55)
[2017-09-18] MEDS: DIVALPROEX 125 MG CAP.SPRINK PO SCH ×2 (07:55→19:49)
--- NOTE | 2017-09-18 10:23 | PN ---
DATE: 09/17/2017 This is a late entry for date of service 09/17/2017 and covers elements not covered in my initial note of 09/17/2017. The patient remains confused but not aggressive. REVIEW OF SYSTEMS: No CV, , pulmonary, eye, ENT system symptoms on review. Reliability poor. MENTAL STATUS EXAM: Oriented to himself. Insight, judgment, recent and remote memory, attention, concentration, fund of knowledge poor, consistent with his diagnosis as mentioned in my initial note. PLAN: No change from my initial note. MAN Lucas ROSS MD DR: JERI/pedro JOB#: [id number] / [id number]
--- NOTE | 2017-09-18 10:26 | PN ---
DATE: 09/16/2017 PSYCHIATRIC PROGRESS NOTE This late entry 09/16/2017 covers elements not covered in my initial note. SUBJECTIVE: I met with the patient evening of 09/16/2017. The patient was screened by nursing facility and may be accepted by them. He has been confused, not aggressive, wandering the hallways checking doors at times, disorganized, but the aggression is better. He wanders into the room of other patients. REVIEW OF SYSTEMS: No CV, , pulmonary, eye, ENT system symptoms on review. Reliability poor. MENTAL STATUS EXAM: Oriented to himself. Insight, judgment, recent and remote memory, attention, concentration, fund of knowledge poor, consistent with his diagnosis mentioned in my initial note. PLAN: No change from my initial note on his current psychotropics. MAN Lucas ROSS MD DR: JERI/pedro JOB#: [id number] / [id number]
[2017-09-18 16:02] VITALS: BP 110/56
[2017-09-18] MEDS: ATORVASTATIN CALCIUM 10 MG TABLET. PO SCH (19:49)
[2017-09-18] MEDS: MIRTAZAPINE 15 MG TABLET PO SCH (19:49)
[2017-09-18] MEDS: traZODone 50 MG TABLET. PO SCH (19:49)
[2017-09-18] MEDS: MELATONIN 3 MG TABLET PO SCH (19:50)
--- NOTE | 2017-09-18 19:51 | PDOC ---
Exam Note: [place] Note: Please also refer to the separate dictated note~for this date of service dictated separately.~Patient seen individually. Discussed the patient with Nursing staff reviewed the chart.~Reviewed interim history and current functioning. Reviewed vital signs,~Labs/ Radiology~and current medications noted below. Continue current treatment with the changes noted in the dictated addendum note Assessment: Vital Signs: Vital Signs Date Time Temp Pulse Resp B/P (MAP) Pulse Ox O2 Delivery O2 Flow Rate FiO2 09/18/17 16:27 60 110/56 09/18/17 16:02 98.4 20 98 09/16/17 15:55 Room Air 90.0 I&O Intake and Output 09/18/17 07:00 Intake Total 840 ml Balance 840 ml Intake Oral 840 ml Current Medications: Meds: Current Medications Acetaminophen (Tylenol) 650 mg PRN Q6HRS PRN PO PAIN / TEMP; Start 09/05/17 at 14:00 Multi-Ingredient Ointment (Analgesic [place]) 1 darrel PRN QID PRN TP MUSCLE PAIN; Start 09/05/17 at 14:00 Al Hydroxide/Mg Hydroxide (Mylanta Plus Xs) 15 ml PRN AFTMEALHC PRN PO DYSPEPSIA; Start 09/05/17 at 14:00 Magnesium Hydroxide (Milk Of Magnesia) 2,400 mg PRN QHS PRN PO CONSTIPATION; Start 09/05/17 at 14:00 Acetaminophen (Tylenol) 650 mg PRN Q6HRS PRN PO PAIN / TEMP; Start 09/05/17 at 15:00; Status Cancel Amiodarone HCl (Cordarone) 200 mg DAILY PO Last administered on 09/17/17 07: 33; Start 09/06/17 at 09:00 Ascorbic Acid (Vitamin C) 500 mg DAILY PO Last administered on 09/18/17 07:53 ; Start 09/06/17 at 09:00 Aspirin (Children'S Aspirin) 81 mg DAILY PO Last administered on 09/18/17 07: 54; Start 09/06/17 at 09:00 Atorvastatin Calcium (Lipitor) 10 mg QHS PO Last administered on 09/18/17 19: 49; Start 09/05/17 at 21:00 Carvedilol (Coreg) 12.5 mg BIDWMEALS PO Last administered on 09/05/17 17:40; Start 09/05/17 at 17:00; Stop 09/06/17 at 11:20; Status DC Vitamin D (Vitamin D3) 1,000 unit DAILY PO Last administered on 09/18/17 07: 52; Start 09/06/17 at 09:00 Cyanocobalamin (Vitamin B-12) 1,000 mcg DAILY PO Last administered on 07:51; Start 09/06/17 at 09:00 Divalproex Sodium (Depakote Sprinkles) 375 mg BID PO Last administered on 10:05; Start 09/05/17 at 21:00; Stop 09/07/17 at 17:38; Status DC Furosemide (Lasix) 40 mg DAILY PO Last administered on 09/18/17 07:53; Start 09/06/17 at 09:00 Lorazepam (Ativan) 0.25 mg PRN Q6HRS PRN PO ANXIETY / AGITATION; Start at 15:00 Magnesium Hydroxide (Milk Of Magnesia) 2,400 mg PRN QHS PRN PO CONSTIPATION; Start 09/05/17 at 15:00; Status Cancel Multi-Ingredient Ointment (Analgesic [place]) 1 darrel PRN QID PRN TP MUSCLE PAIN; Start 09/05/17 at 15:00; Status Cancel Mirtazapine (Remeron) 15 mg QHS PO Last administered on 09/18/17 19:49; Start 09/05/17 at 21:00 Polyethylene Glycol (miraLAX) 17 gm PRN DAILY PRN PO CONSTIPATION; Start at 09:00 Potassium Chloride (Klor-Con) 40 meq DAILY PO Last administered on 09/18/17 07:55; Start 09/06/17 at 09:00 Risperidone (RisperDAL) 0.5 mg PRN Q6HRS PRN PO AGITATION; Start 09/05/17 at 15 :00; Stop 09/07/17 at 15:49; Status DC Sennosides (Senna) 8.6 mg DAILY PO Last administered on 09/18/17 07:51; Start 09/06/17 at 09:00 Sertraline HCl (Zoloft) 25 mg DAILY PO Last administered on 09/06/17 10:25; Start 09/06/17 at 09:00; Stop 09/06/17 at 19:30; Status DC Tamsulosin HCl (Flomax) 0.4 mg DAILY PO Last administered on 09/18/17 07:53; Start 09/06/17 at 09:00 Lisinopril (Prinivil) 20 mg DAILY PO ; Start 09/06/17 at 09:00; Stop 09/06/17 at 11:20; Status DC Al Hydroxide/Mg Hydroxide (Mylanta Plus Xs) 15 ml PRN AFTMEALHC PRN PO DYSPEPSIA; Start 09/05/17 at 15:45; Status Cancel Melatonin 3 mg QHS PO Last administered on 09/18/17 19:50; Start 09/05/17 at 21:00 Prenat Multivit/ [place]/Iron/Folic Ac (Multivitamin ) 1 tab DAILY PO Last administered on 09/18/17 07:53; Start 09/06/17 at 09:00 Olanzapine (ZyPREXA ZYDIS) 2.5 mg PRN Q2HR PRN PO AGITATION Last administered on 09/11/17 04:49; Start 09/05/17 at 17:30 Carvedilol (Coreg) 6.25 mg BIDWMEALS PO Last administered on 09/17/17 07:35; Start 09/06/17 at 17:00 Lisinopril (Prinivil) 10 mg DAILY PO Last administered on 09/17/17 07:35; Start 09/07/17 at 09:00 Quetiapine Fumarate (SEROquel) 12.5 mg BID92 PO ; Start 09/07/17 at 09:00; Stop 09/07/17 at 09:00; Status DC Sertraline HCl (Zoloft) 50 mg DAILY PO Last administered on 09/18/17 07:54; Start 09/07/17 at 09:00 Buspirone HCl (Buspar) 5 mg BID92 PO Last administered on 09/08/17 09:00; Start 09/07/17 at 09:00; Stop 09/08/17 at 12:03; Status DC Divalproex Sodium (Depakote Sprinkles) 500 mg BID PO Last administered on 09/10 17:27; Start 09/07/17 at 21:00; Stop 09/10/17 at 18:39; Status DC Buspirone HCl (Buspar) 10 mg BID92 PO Last administered on 09/18/17 13:43; Start 09/08/17 at 14:00 Risperidone (RisperDAL) 0.125 mg TID@0900,1400,1700 PO Last administered on 16:27; Start 09/09/17 at 09:00 Divalproex Sodium (Depakote Sprinkles) 625 mg BID PO Last administered on 09/18 19:49; Start 09/11/17 at 09:00 Trazodone HCl (Desyrel) 50 mg QHS PO Last administered on 09/18/17 19:49; Start 09/10/17 at 21:00 Trazodone HCl (Desyrel) 50 mg PRN QHS PRN PO INSOMNIA; Start 09/10/17 at 18:45 Active Scripts Active Reported Risperdal (Risperidone) 0.5 Mg Tablet 0.5 Mg PO PRN Q6HRS PRN Ascorbic Acid 500 Mg Tablet 500 Mg PO DAILY Milk Of Magnesia (Magnesium Hydroxide) 400 Mg/5 Ml Oral.susp 2,400 Mg PO PRN QHS PRN Zoloft (Sertraline Hcl) 25 Mg Tablet 25 Mg PO DAILY Vitamins ( Vits W-Ca,Fe,Fa(<1MG)) 1 Each Tablet 1 Tab PO DAILY Mirtazapine 7.5 Mg Tablet 15 Mg PO QHS Analgesic [place] (Methyl Salicylate/Menthol) 28 Gm Oint...g. 1 Darrel TP PRN QID PRN Maalox Advanced Suspension (Mag Hydrox/Aluminum Hyd/Simeth) 355 Ml Oral.susp 15 Ml PO PRN AFTMEALHC PRN Vitamin B-12 (Cyanocobalamin (Vitamin B-12)) 1,000 Mcg Tablet 1,000 Mcg PO DAILY Polyethylene Glycol 3350 255 Gm Powder 17 Gm PO PRN DAILY PRN Tylenol (Acetaminophen) 325 Mg Tablet 650 Mg PO PRN Q6HRS PRN Lorazepam 0.5 Mg Tablet 0.25 Mg PO PRN Q6HRS PRN Furosemide 40 Mg Tablet 40 Mg PO DAILY Klor-Con M20 (Potassium Chloride) 20 Meq Tab.er.prt 40 Meq PO DAILY Lisinopril 40 Mg Tablet 20 Mg PO DAILY Vitamin D3 (Cholecalciferol (Vitamin D3)) 1,000 Unit Tablet 1,000 Unit PO DAILY Aspirin 81 Mg Tab.chew 81 Mg PO DAILY Amiodarone Hcl 200 Mg Tablet 200 Mg PO DAILY Atorvastatin Calcium 10 Mg Tablet 10 Mg PO QHS Tamsulosin Hcl 0.4 Mg Cap.er.24h 0.4 Mg PO DAILY Melatonin 3 Mg Tablet 3 Mg PO HS Senokot (Sennosides) 8.6 Mg Tablet 8.6 Mg PO DAILY Carvedilol 12.5 Mg Tablet 12.5 Mg PO BIDWMEALS Divalproex Sodium 125 Mg Cap.sprink 375 Mg PO BID I have reviewed the current psychotropics carefully including drug interactions. Risk benefit ratio favors no change other than as noted in my dictated progress note. Diagnosis: Problems: (1) Dementia with behavioral disturbance (2) Anxiety disorder (3) Impulse control disorder (4) Dementia, vascular, with depression (5) Dementia, vascular, with delusions (6) Dementia in Alzheimer's disease with depression (7) Dementia in Alzheimer's disease with delusions JING ROSS MD Sep 18, 2017 19:51
[2017-09-19 05:54] VITALS: BP 112/77
[2017-09-19] MEDS: CARVEDILOL 6.25 MG TABLET PO SCH ×2 (08:01→16:38)
[2017-09-19] MEDS: CHOLECALCIFEROL (VITAMIN D3) 1,000 UNIT TABLET PO SCH (08:01)
[2017-09-19] MEDS: SENNOSIDES 8.6 MG TABLET PO SCH (08:01)
[2017-09-19] MEDS: SERTRALINE 50 MG TABLET. PO SCH (08:01)
[2017-09-19] MEDS: LISINOPRIL 10 MG TABLET PO SCH (08:01)
[2017-09-19] MEDS: busPIRone 10 MG TABLET. PO SCH ×2 (08:01→13:59)
[2017-09-19] MEDS: risperiDONE 0.25 MG TABLET. PO SCH ×3 (08:01→17:09)
[2017-09-19] MEDS: TAMSULOSIN 0.4 MG CAP.ER.24H. PO SCH (08:01)
[2017-09-19] MEDS: ASPIRIN 81 MG TAB.CHEW PO SCH (08:02)
[2017-09-19] MEDS: FUROSEMIDE 40 MG TABLET PO SCH (08:02)
[2017-09-19] MEDS: PRENATAL MULTIVITAMIN TABLET. PO SCH (08:02)
[2017-09-19] MEDS: AMIODARONE HCL 200 MG TABLET PO SCH (08:02)
[2017-09-19] MEDS: POTASSIUM CHLORIDE 20 MEQ TABLET.ER. PO SCH (08:02)
[2017-09-19] MEDS: CYANOCOBALAMIN (VITAMIN B-12) 1,000 MCG TABLET. PO SCH (08:03)
[2017-09-19] MEDS: ASCORBIC ACID 500 MG TABLET PO SCH (08:03)
[2017-09-19] MEDS: DIVALPROEX 125 MG CAP.SPRINK PO SCH ×2 (08:04→19:18)
[2017-09-19 16:14] VITALS: BP 121/64
[2017-09-19] MEDS: MELATONIN 3 MG TABLET PO SCH (19:18)
[2017-09-19] MEDS: MIRTAZAPINE 15 MG TABLET PO SCH (19:18)
[2017-09-19] MEDS: traZODone 50 MG TABLET. PO SCH (19:18)
[2017-09-19] MEDS: ATORVASTATIN CALCIUM 10 MG TABLET. PO SCH (19:18)
--- NOTE | 2017-09-19 19:53 | PDOC ---
Exam Note: [place] Note: Please also refer to the separate dictated note~for this date of service dictated separately.~Patient seen individually. Discussed the patient with Nursing staff reviewed the chart.~Reviewed interim history and current functioning. Reviewed vital signs,~Labs/ Radiology~and current medications noted below. Continue current treatment with the changes noted in the dictated addendum note Assessment: Vital Signs: Vital Signs Date Time Temp Pulse Resp B/P (MAP) Pulse Ox O2 Delivery O2 Flow Rate FiO2 09/19/17 16:14 97.1 72 18 121/64 (83) 95 09/16/17 15:55 Room Air 90.0 I&O Intake and Output 09/19/17 07:00 Intake Total 600 ml Balance 600 ml Intake Oral 600 ml Current Medications: Meds: Current Medications Acetaminophen (Tylenol) 650 mg PRN Q6HRS PRN PO PAIN / TEMP; Start 09/05/17 at 14:00 Multi-Ingredient Ointment (Analgesic [place]) 1 darrel PRN QID PRN TP MUSCLE PAIN; Start 09/05/17 at 14:00 Al Hydroxide/Mg Hydroxide (Mylanta Plus Xs) 15 ml PRN AFTMEALHC PRN PO DYSPEPSIA; Start 09/05/17 at 14:00 Magnesium Hydroxide (Milk Of Magnesia) 2,400 mg PRN QHS PRN PO CONSTIPATION; Start 09/05/17 at 14:00 Acetaminophen (Tylenol) 650 mg PRN Q6HRS PRN PO PAIN / TEMP; Start 09/05/17 at 15:00; Status Cancel Amiodarone HCl (Cordarone) 200 mg DAILY PO Last administered on 09/19/17 08: 02; Start 09/06/17 at 09:00 Ascorbic Acid (Vitamin C) 500 mg DAILY PO Last administered on 09/19/17 08:03 ; Start 09/06/17 at 09:00 Aspirin (Children'S Aspirin) 81 mg DAILY PO Last administered on 09/19/17 08: 02; Start 09/06/17 at 09:00 Atorvastatin Calcium (Lipitor) 10 mg QHS PO Last administered on 09/19/17 19: 18; Start 09/05/17 at 21:00 Carvedilol (Coreg) 12.5 mg BIDWMEALS PO Last administered on 09/05/17 17:40; Start 09/05/17 at 17:00; Stop 09/06/17 at 11:20; Status DC Vitamin D (Vitamin D3) 1,000 unit DAILY PO Last administered on 09/19/17 08: 01; Start 09/06/17 at 09:00 Cyanocobalamin (Vitamin B-12) 1,000 mcg DAILY PO Last administered on 08:03; Start 09/06/17 at 09:00 Divalproex Sodium (Depakote Sprinkles) 375 mg BID PO Last administered on 10:05; Start 09/05/17 at 21:00; Stop 09/07/17 at 17:38; Status DC Furosemide (Lasix) 40 mg DAILY PO Last administered on 09/19/17 08:02; Start 09/06/17 at 09:00 Lorazepam (Ativan) 0.25 mg PRN Q6HRS PRN PO ANXIETY / AGITATION; Start at 15:00 Magnesium Hydroxide (Milk Of Magnesia) 2,400 mg PRN QHS PRN PO CONSTIPATION; Start 09/05/17 at 15:00; Status Cancel Multi-Ingredient Ointment (Analgesic [place]) 1 darrel PRN QID PRN TP MUSCLE PAIN; Start 09/05/17 at 15:00; Status Cancel Mirtazapine (Remeron) 15 mg QHS PO Last administered on 09/19/17 19:18; Start 09/05/17 at 21:00 Polyethylene Glycol (miraLAX) 17 gm PRN DAILY PRN PO CONSTIPATION; Start at 09:00 Potassium Chloride (Klor-Con) 40 meq DAILY PO Last administered on 09/19/17 08:02; Start 09/06/17 at 09:00 Risperidone (RisperDAL) 0.5 mg PRN Q6HRS PRN PO AGITATION; Start 09/05/17 at 15 :00; Stop 09/07/17 at 15:49; Status DC Sennosides (Senna) 8.6 mg DAILY PO Last administered on 09/19/17 08:01; Start 09/06/17 at 09:00 Sertraline HCl (Zoloft) 25 mg DAILY PO Last administered on 09/06/17 10:25; Start 09/06/17 at 09:00; Stop 09/06/17 at 19:30; Status DC Tamsulosin HCl (Flomax) 0.4 mg DAILY PO Last administered on 09/19/17 08:01; Start 09/06/17 at 09:00 Lisinopril (Prinivil) 20 mg DAILY PO ; Start 09/06/17 at 09:00; Stop 09/06/17 at 11:20; Status DC Al Hydroxide/Mg Hydroxide (Mylanta Plus Xs) 15 ml PRN AFTMEALHC PRN PO DYSPEPSIA; Start 09/05/17 at 15:45; Status Cancel Melatonin 3 mg QHS PO Last administered on 09/19/17 19:18; Start 09/05/17 at 21:00 Prenat Multivit/ [place]/Iron/Folic Ac (Multivitamin ) 1 tab DAILY PO Last administered on 09/19/17 08:02; Start 09/06/17 at 09:00 Olanzapine (ZyPREXA ZYDIS) 2.5 mg PRN Q2HR PRN PO AGITATION Last administered on 09/11/17 04:49; Start 09/05/17 at 17:30 Carvedilol (Coreg) 6.25 mg BIDWMEALS PO Last administered on 09/19/17 08:01; Start 09/06/17 at 17:00 Lisinopril (Prinivil) 10 mg DAILY PO Last administered on 09/19/17 08:01; Start 09/07/17 at 09:00 Quetiapine Fumarate (SEROquel) 12.5 mg BID92 PO ; Start 09/07/17 at 09:00; Stop 09/07/17 at 09:00; Status DC Sertraline HCl (Zoloft) 50 mg DAILY PO Last administered on 09/19/17 08:01; Start 09/07/17 at 09:00 Buspirone HCl (Buspar) 5 mg BID92 PO Last administered on 09/08/17 09:00; Start 09/07/17 at 09:00; Stop 09/08/17 at 12:03; Status DC Divalproex Sodium (Depakote Sprinkles) 500 mg BID PO Last administered on 09/10 17:27; Start 09/07/17 at 21:00; Stop 09/10/17 at 18:39; Status DC Buspirone HCl (Buspar) 10 mg BID92 PO Last administered on 09/19/17 13:59; Start 09/08/17 at 14:00 Risperidone (RisperDAL) 0.125 mg TID@0900,1400,1700 PO Last administered on 17:09; Start 09/09/17 at 09:00 Divalproex Sodium (Depakote Sprinkles) 625 mg BID PO Last administered on 09/19 19:18; Start 09/11/17 at 09:00 Trazodone HCl (Desyrel) 50 mg QHS PO Last administered on 09/19/17 19:18; Start 09/10/17 at 21:00 Trazodone HCl (Desyrel) 50 mg PRN QHS PRN PO INSOMNIA; Start 09/10/17 at 18:45 Active Scripts Active Reported Risperdal (Risperidone) 0.5 Mg Tablet 0.5 Mg PO PRN Q6HRS PRN Ascorbic Acid 500 Mg Tablet 500 Mg PO DAILY Milk Of Magnesia (Magnesium Hydroxide) 400 Mg/5 Ml Oral.susp 2,400 Mg PO PRN QHS PRN Zoloft (Sertraline Hcl) 25 Mg Tablet 25 Mg PO DAILY Vitamins ( Vits W-Ca,Fe,Fa(<1MG)) 1 Each Tablet 1 Tab PO DAILY Mirtazapine 7.5 Mg Tablet 15 Mg PO QHS Analgesic [place] (Methyl Salicylate/Menthol) 28 Gm Oint...g. 1 Darrel TP PRN QID PRN Maalox Advanced Suspension (Mag Hydrox/Aluminum Hyd/Simeth) 355 Ml Oral.susp 15 Ml PO PRN AFTMEALHC PRN Vitamin B-12 (Cyanocobalamin (Vitamin B-12)) 1,000 Mcg Tablet 1,000 Mcg PO DAILY Polyethylene Glycol 3350 255 Gm Powder 17 Gm PO PRN DAILY PRN Tylenol (Acetaminophen) 325 Mg Tablet 650 Mg PO PRN Q6HRS PRN Lorazepam 0.5 Mg Tablet 0.25 Mg PO PRN Q6HRS PRN Furosemide 40 Mg Tablet 40 Mg PO DAILY Klor-Con M20 (Potassium Chloride) 20 Meq Tab.er.prt 40 Meq PO DAILY Lisinopril 40 Mg Tablet 20 Mg PO DAILY Vitamin D3 (Cholecalciferol (Vitamin D3)) 1,000 Unit Tablet 1,000 Unit PO DAILY Aspirin 81 Mg Tab.chew 81 Mg PO DAILY Amiodarone Hcl 200 Mg Tablet 200 Mg PO DAILY Atorvastatin Calcium 10 Mg Tablet 10 Mg PO QHS Tamsulosin Hcl 0.4 Mg Cap.er.24h 0.4 Mg PO DAILY Melatonin 3 Mg Tablet 3 Mg PO HS Senokot (Sennosides) 8.6 Mg Tablet 8.6 Mg PO DAILY Carvedilol 12.5 Mg Tablet 12.5 Mg PO BIDWMEALS Divalproex Sodium 125 Mg Cap.sprink 375 Mg PO BID I have reviewed the current psychotropics carefully including drug interactions. Risk benefit ratio favors no change other than as noted in my dictated progress note. Diagnosis: Problems: (1) Dementia with behavioral disturbance (2) Anxiety disorder (3) Impulse control disorder (4) Dementia, vascular, with depression (5) Dementia, vascular, with delusions (6) Dementia in Alzheimer's disease with depression (7) Dementia in Alzheimer's disease with delusions JING ROSS MD Sep 19, 2017 19:53
--- NOTE | 2017-09-19 20:49 | PN ---
DATE: 09/18/2017 This late entry 09/18/2017 covers elements not covered in my initial note of 09/18/2017. SUBJECTIVE: Met with the patient evening of 09/18/2017. The patient remains confused, wanders the hallways, redirects but otherwise calm. He is very disorganized, still checking the doors. REVIEW OF SYSTEMS: No CV, , pulmonary, eye, ENT system symptoms on review. MENTAL STATUS EXAM: Oriented to himself. Insight, judgment, recent and remote memory, attention, concentration, fund of knowledge poor, consistent with his diagnosis mentioned in my initial note. PLAN: No change in his current psychotropics. Adjust further as clinically indicated. JING ROSS MD DR: JERI/pedro JOB#: [id number] / [id number]
--- NOTE | 2017-09-19 21:00 | PN ---
DATE: 09/19/2017 This note covers elements not covered in my initial note of 09/19/2017. I met with the patient morning of 09/19/2017. Discussed with social service and nursing staff. Overall, the patient remains confused, wanders around the unit, redirects, not aggressive. REVIEW OF SYSTEMS: No CV, , pulmonary, eye, ENT system symptoms on review. Reliability poor. MENTAL STATUS EXAM: Oriented to himself. Insight, judgment, recent and remote memory, attention, concentration, fund of knowledge poor, consistent with his diagnosis mentioned in my initial note. PLAN: No change in his current psychotropics as mentioned in my initial note. Adjust further as clinically indicated. MAN Lucas ROSS MD DR: JERI/pedro JOB#: [id number] / [id number]
[2017-09-20] MEDS ORDERED: OLAN5TAB5 PO (03:48)
[2017-09-20] MEDS ORDERED: BUSP10TA PO (03:51)
[2017-09-20] MEDS ORDERED: RISP0.2519 PO (03:52)
[2017-09-20] MEDS ORDERED: TRAZ50TA15 PO ×2 (03:53→03:54)
[2017-09-20] MEDS ORDERED: SERT50TA8 PO (03:54)
[2017-09-20] MEDS ORDERED: LISI10TA2 PO (03:54)
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
[2017-09-20 05:59] VITALS: BP 120/63
[2017-09-20] MEDS: risperiDONE 0.25 MG TABLET. PO SCH ×2 (07:55→13:37)
[2017-09-20] MEDS: DIVALPROEX 125 MG CAP.SPRINK PO SCH (07:55)
[2017-09-20] MEDS: TAMSULOSIN 0.4 MG CAP.ER.24H. PO SCH (07:56)
[2017-09-20] MEDS: LISINOPRIL 10 MG TABLET PO SCH (07:56)
[2017-09-20] MEDS: CYANOCOBALAMIN (VITAMIN B-12) 1,000 MCG TABLET. PO SCH (07:56)
[2017-09-20 07:57] VITALS: BP 120/63
[2017-09-20] MEDS: AMIODARONE HCL 200 MG TABLET PO SCH (07:57)
[2017-09-20] MEDS: SENNOSIDES 8.6 MG TABLET PO SCH (07:57)
[2017-09-20] MEDS: ASPIRIN 81 MG TAB.CHEW PO SCH (07:57)
[2017-09-20] MEDS: SERTRALINE 50 MG TABLET. PO SCH (07:57)
[2017-09-20] MEDS: ASCORBIC ACID 500 MG TABLET PO SCH (07:57)
[2017-09-20] MEDS: CARVEDILOL 6.25 MG TABLET PO SCH (07:57)
[2017-09-20] MEDS: busPIRone 10 MG TABLET. PO SCH ×2 (07:58→13:37)
[2017-09-20] MEDS: CHOLECALCIFEROL (VITAMIN D3) 1,000 UNIT TABLET PO SCH (07:58)
[2017-09-20] MEDS: FUROSEMIDE 40 MG TABLET PO SCH (07:58)
[2017-09-20] MEDS: POTASSIUM CHLORIDE 20 MEQ TABLET.ER. PO SCH (07:58)
[2017-09-20] MEDS: PRENATAL MULTIVITAMIN TABLET. PO SCH (07:58)
== END 2017-09-20 14:15 | disposition home or self-care (01) | DRG 884 ==
LOC: GEROPSY 13:37
PROVIDERS: ADMIT Psychiatry & Neurology Psychiatry; ATTEND Psychiatry & Neurology Psychiatry
DX: F01.51 Vascular dementia, unspecified severity, with behavioral disturbance (principal); D69.6 Thrombocytopenia, unspecified; G30.9 Alzheimer's disease, unspecified; I50.9 Heart failure, unspecified; F02.81 Dementia in other diseases classified elsewhere, unspecified severity, with behavioral disturbance; E44.1 Mild protein-calorie malnutrition; I13.0 Hypertensive heart and chronic kidney disease with heart failure and stage 1 through stage 4 chronic kidney disease, or unspecified chronic kidney disease; F22 Delusional disorders; N18.9 Chronic kidney disease, unspecified; D64.9 Anemia, unspecified; E78.5 Hyperlipidemia, unspecified; F32.9 Major depressive disorder, single episode, unspecified; F41.9 Anxiety disorder, unspecified; F63.9 Impulse disorder, unspecified; I25.10 Atherosclerotic heart disease of native coronary artery without angina pectoris; I25.2 Old myocardial infarction; N40.0 Benign prostatic hyperplasia without lower urinary tract symptoms; K59.09 Other constipation; G47.00 Insomnia, unspecified; Z66 Do not resuscitate; H54.61 Unqualified visual loss, right eye, normal vision left eye; Z79.899 Other long term (current) drug therapy; Z91.83 Wandering in diseases classified elsewhere; Z95.0 Presence of cardiac pacemaker; Z88.0 Allergy status to penicillin; Z88.8 Allergy status to other drugs, medicaments and biological substances; Z68.22 Body mass index [BMI] 22.0-22.9, adult
CPT/HCPCS: 36415; 70450; 73502; 80053; 80061; 80164; 81001; 82306; 82607; 83036; 83540; 83550; 83735; 84436; 84443; 84480; 85025; 86592; 86593